=== PATIENT | male | born 1985 | race African-American/Black ===

== ENCOUNTER 2019-02-03 10:21 | Emergency (ER) | payer SELFPAY ==
[~2019-02-03] VITALS: Ht 188 cm; Wt 115.0 kg
[~2019-02-03 10:21] MED LIST: (None)3.5 GM OP; AMOXICILLIN500 MG OR; AMOXIL500 MG OR; LISINOP/HCTZ1 TAB PO; NO HOME MEDS; ULTRAM50 M1 PO; ULTRAM50 MG OR
[2019-02-03] MEDS ORDERED: LISINOP/HCTZ1 TAB PO (10:36)
[2019-02-03 10:48] VITALS: BP 164/91
[2019-02-03] MEDS ORDERED: LISINOP/HCTZ1 TA1 PO ×2 (10:52)
== END 2019-02-03 10:53 | disposition home or self-care (01) | DRG 951 ==
LOC: ED 10:21
DX: Z76.0 Encounter for issue of repeat prescription (principal); R51 Headache; I10 Essential (primary) hypertension; F17.200 Nicotine dependence, unspecified, uncomplicated

== ENCOUNTER 2019-05-15 22:52 | Observation (INO) | payer OTHER ==
[~2019-05-15] VITALS: Ht 188 cm; Wt 131.3 kg
[~2019-05-15 22:52] MED LIST changes: +LISINOP/HCTZ1 TA1 PO
[2019-05-15 23:53] LABS: HEMATOCRIT 42.8 % (39.0-50.0); HEMOGLOBIN 13.8 g/dl (14.0-18.0); IMMATURE GRANULOCYTES 0.4 % (0.0-5.0); MEAN CELL VOLUME 77.5 fL CALC (80.0-100.0); MEAN CORPUSCULAR HGB CONC 32.2 g/L CALC (32.0-36.0); NEUT# 3.97 thou/uL (1.82-7.42); RED BLOOD COUNT 5.52 mill/uL (4.70-6.10)
[2019-05-15 23:54] LABS: URINE BILIRUBIN - DIPSTICK NEGATIVE (NEGATIVE); URINE BLOOD DIPSTICK NEGATIVE (NEGATIVE); URINE COLOR YELLOW; URINE GLUCOSE - DIPSTICK NEGATIVE (NEGATIVE); URINE KETONE TRACE mg/dL (NEGATIVE); URINE LEUK ESTERASE NEGATIVE (NEGATIVE); URINE NITRITE - DIPSTICK NEGATIVE (Negative); URINE PROTEIN - DIPSTICK TRACE mg/dL (NEG-TRACE); URINE SPECIFIC GRAVITY 1.015
[2019-05-15 23:59] LABS: ALBUMIN 4.8 g/dL (3.2-5.0); ALKALINE PHOSPHATASE 90 u/l (38-126); AMYLASE 69 u/l (30-110); ANION GAP 17 (6-22 (CALC)); BUN 6 mg/dL (9-20); BUN/CREATININE RATIO 6 (12-20 (CALC)); CARBON DIOXIDE 26 mmol/l (22-30); CHLORIDE 100 mmol/l (95-108); GFR > 60 ML/MIN (>=60 (CALC)); GFR FOR AFR.AMER. > 60 ML/MIN (>=60 (CALC)); LIPASE 185 u/l (23-300); POTASSIUM 4.1 mmol/l (3.5-5.1); SGOT/AST 143 u/l (17-59); SODIUM 139 mmol/l (137-146); TOTAL PROTEIN 7.9 g/dL (6.3-8.2)
[2019-05-16 00:11] LABS: MYOGLOBIN 24 ng/mL (0 - 121)
[2019-05-16 03:55] VITALS: BP 135/67
[2019-05-16 05:26] LABS: HEMATOCRIT 40.8 % (39.0-50.0); HEMOGLOBIN 13.3 g/dl (14.0-18.0); IMMATURE GRANULOCYTES 0.3 % (0.0-5.0); MEAN CELL VOLUME 78.3 fL CALC (80.0-100.0); MEAN CORPUSCULAR HGB 25.5 pG CALC (26.0-32.0); MEAN CORPUSCULAR HGB CONC 32.6 g/L CALC (32.0-36.0); NEUT# 3.3 thou/uL (1.82-7.42); RED BLOOD COUNT 5.21 mill/uL (4.70-6.10); RED CELL DISTRI WIDTH 14.9 % (11.5-15.5)
[2019-05-16 05:55] LABS: ALBUMIN 4.2 g/dL (3.2-5.0); ALKALINE PHOSPHATASE 92 u/l (38-126); ANION GAP 16 (6-22 (CALC)); BILIRUBIN, TOTAL 1.1 mg/dL (0.0-1.4); BUN 6 mg/dL (9-20); BUN/CREATININE RATIO 6 (12-20 (CALC)); CARBON DIOXIDE 25 mmol/l (22-30); CHLORIDE 102 mmol/l (95-108); GFR > 60 ML/MIN (>=60 (CALC)); GFR FOR AFR.AMER. > 60 ML/MIN (>=60 (CALC)); POTASSIUM 4.3 mmol/l (3.5-5.1); SGOT/AST 105 u/l (17-59); SODIUM 138 mmol/l (137-146); TOTAL PROTEIN 6.9 g/dL (6.3-8.2)
[2019-05-16 07:55] VITALS: BP 138/80
[2019-05-16] MEDS ORDERED: PROTONIX40 M2 PO (15:18)
[2019-05-16 15:37] VITALS: BP 152/85
== END 2019-05-16 15:52 | disposition home or self-care (01) | DRG 392 ==
LOC: ED 22:52 → ED-I 05-16 02:06 → ED 05-16 03:31 → MS2 05-16 03:32
PROVIDERS: Emergency Medicine; ADMIT Internal Medicine Nephrology; ATTEND Internal Medicine Nephrology
DX: K29.70 Gastritis, unspecified, without bleeding (principal); K29.80 Duodenitis without bleeding; I10 Essential (primary) hypertension; F17.210 Nicotine dependence, cigarettes, uncomplicated

== ENCOUNTER 2019-11-10 14:21 | Observation (INO) | payer OTHER ==
[~2019-11-10] VITALS: Ht 182.9 cm; Wt 124.0 kg
[~2019-11-10 14:21] MED LIST changes: +PROTONIX40 M2 PO
[2019-11-10 17:29] LABS: HEMATOCRIT 44.2 % (39.0-50.0); HEMOGLOBIN 14.4 g/dl (14.0-18.0); IMMATURE GRANULOCYTES 0.3 % (0.0-5.0); MEAN CELL VOLUME 77.1 fL CALC (80.0-100.0); MEAN CORPUSCULAR HGB 25.1 pG CALC (26.0-32.0); MEAN CORPUSCULAR HGB CONC 32.6 g/L CALC (32.0-36.0); NEUT# 11.94 thou/uL (1.82-7.42); RED BLOOD COUNT 5.73 mill/uL (4.70-6.10); RED CELL DISTRI WIDTH 14.9 % (11.5-15.5)
[2019-11-10 17:48] LABS: ALKALINE PHOSPHATASE 99 u/l (38-126); ANION GAP 19 (6-22 (CALC)); BILIRUBIN, TOTAL 1.7 mg/dL (0.0-1.4); BUN 8 mg/dL (9-20); BUN/CREATININE RATIO 9 (12-20 (CALC)); CARBON DIOXIDE 22 mmol/l (22-30); CHLORIDE 98 mmol/l (95-108); GFR > 60 ML/MIN (>=60 (CALC)); GFR FOR AFR.AMER. > 60 ML/MIN (>=60 (CALC)); POTASSIUM 4.1 mmol/l (3.5-5.1); SGOT/AST 93 u/l (17-59); SODIUM 135 mmol/l (137-146); TOTAL PROTEIN 9.1 g/dL (6.3-8.2)
[2019-11-10 17:55] LABS: LIPASE 7017 u/l (23-300)
[2019-11-10 18:35] LABS: BARBITURATES NEGATIVE (NEGATIVE); COCAINE NEGATIVE (NEGATIVE); METHADONE NEGATIVE (NEGATIVE); OXCYCODONE NEGATIVE (NEGATIVE); TETRAHYDROCANNABIONOL NEGATIVE (NEGATIVE); TRICYLIC ANTIDEPRESSANTS NEGATIVE (NEGATIVE)
[2019-11-10 18:37] LABS: URINE BLOOD DIPSTICK NEGATIVE (NEGATIVE); URINE COLOR YELLOW; URINE GLUCOSE - DIPSTICK NEGATIVE (NEGATIVE); URINE KETONE 40 mg/dL (NEGATIVE); URINE LEUK ESTERASE NEGATIVE (NEGATIVE); URINE NITRITE - DIPSTICK NEGATIVE (Negative); URINE PH 5.5 (4.5-8.0); URINE PROTEIN - DIPSTICK TRACE mg/dL (NEG-TRACE); URINE SPECIFIC GRAVITY >=1.030; URINE UROBILINOGEN - DIPSTICK 0.2 E.U./dL (0.2)
[2019-11-10 18:40] LABS: URINE BILIRUBIN - DIPSTICK NEGATIVE (NEGATIVE)
[2019-11-10 20:36] VITALS: BP 161/88
[2019-11-11] VITALS (8 sets, daily range): BP systolic 143–188; BP diastolic 71–90
[2019-11-11 10:47] LABS: HEMATOCRIT 41.3 % (39.0-50.0); HEMOGLOBIN 13.5 g/dl (14.0-18.0); IMMATURE GRANULOCYTES 0.6 % (0.0-5.0); MEAN CELL VOLUME 77.2 fL CALC (80.0-100.0); MEAN CORPUSCULAR HGB 25.2 pG CALC (26.0-32.0); MEAN CORPUSCULAR HGB CONC 32.7 g/L CALC (32.0-36.0); NEUT# 13.64 thou/uL (1.82-7.42); RED BLOOD COUNT 5.35 mill/uL (4.70-6.10); RED CELL DISTRI WIDTH 14.9 % (11.5-15.5)
[2019-11-11 11:08] LABS: ALKALINE PHOSPHATASE 69 u/l (38-126); ANION GAP 12 (6-22 (CALC)); BILIRUBIN, TOTAL 1.5 mg/dL (0.0-1.4); BUN 4 mg/dL (9-20); BUN/CREATININE RATIO 6 (12-20 (CALC)); CARBON DIOXIDE 25 mmol/l (22-30); CHLORIDE 101 mmol/l (95-108); CREATININE 0.7 mg/dL (0.7-1.3); GFR > 60 ML/MIN (>=60 (CALC)); GFR FOR AFR.AMER. > 60 ML/MIN (>=60 (CALC)); MAGNESIUM 1.8 mg/dL (1.6-2.3); POTASSIUM 3.8 mmol/l (3.5-5.1); SGOT/AST 33 u/l (17-59); SODIUM 134 mmol/l (137-146)
[2019-11-11 11:09] LABS: ALBUMIN 3.7 g/dL (3.2-5.0); TOTAL PROTEIN 6.8 g/dL (6.3-8.2)
[2019-11-12 00:59] VITALS: BP 154/83
[2019-11-12 03:45] VITALS: BP 164/72
[2019-11-12 05:02] VITALS: BP 154/86
[2019-11-12 05:16] LABS: HEMATOCRIT 38.7 % (39.0-50.0); HEMOGLOBIN 12.4 g/dl (14.0-18.0); IMMATURE GRANULOCYTES 0.4 % (0.0-5.0); MEAN CELL VOLUME 77.9 fL CALC (80.0-100.0); MEAN CORPUSCULAR HGB 24.9 pG CALC (26.0-32.0); NEUT# 10.87 thou/uL (1.82-7.42); RED BLOOD COUNT 4.97 mill/uL (4.70-6.10); RED CELL DISTRI WIDTH 15.1 % (11.5-15.5)
[2019-11-12 05:54] LABS: ALBUMIN 3.3 g/dL (3.2-5.0); ALKALINE PHOSPHATASE 61 u/l (38-126); ANION GAP 12 (6-22 (CALC)); BILIRUBIN, TOTAL 2.1 mg/dL (0.0-1.4); BUN 5 mg/dL (9-20); BUN/CREATININE RATIO 7 (12-20 (CALC)); CARBON DIOXIDE 24 mmol/l (22-30); CHLORIDE 102 mmol/l (95-108); CREATININE 0.7 mg/dL (0.7-1.3); GFR > 60 ML/MIN (>=60 (CALC)); GFR FOR AFR.AMER. > 60 ML/MIN (>=60 (CALC)); LIPASE 627 u/l (23-300); MAGNESIUM 1.8 mg/dL (1.6-2.3); POTASSIUM 3.7 mmol/l (3.5-5.1); SGOT/AST 26 u/l (17-59); SODIUM 134 mmol/l (137-146); TOTAL PROTEIN 6.3 g/dL (6.3-8.2)
[2019-11-12 08:30] VITALS: BP 160/84
[2019-11-12 15:30] VITALS: BP 126/76
[2019-11-12 19:00] VITALS: BP 152/69
[2019-11-13 03:40] VITALS: BP 156/75
[2019-11-13 05:27] LABS: HEMATOCRIT 34.7 % (39.0-50.0); HEMOGLOBIN 11.4 g/dl (14.0-18.0); IMMATURE GRANULOCYTES 0.3 % (0.0-5.0); MEAN CORPUSCULAR HGB 25.6 pG CALC (26.0-32.0); MEAN CORPUSCULAR HGB CONC 32.9 g/L CALC (32.0-36.0); NEUT# 7.09 thou/uL (1.82-7.42); RED BLOOD COUNT 4.45 mill/uL (4.70-6.10); RED CELL DISTRI WIDTH 14.8 % (11.5-15.5)
[2019-11-13 05:39] LABS: ANION GAP 13 (6-22 (CALC)); BUN 5 mg/dL (9-20); BUN/CREATININE RATIO 7 (12-20 (CALC)); CARBON DIOXIDE 22 mmol/l (22-30); CHLORIDE 102 mmol/l (95-108); CREATININE 0.7 mg/dL (0.7-1.3); GFR > 60 ML/MIN (>=60 (CALC)); GFR FOR AFR.AMER. > 60 ML/MIN (>=60 (CALC)); MAGNESIUM 1.8 mg/dL (1.6-2.3); POTASSIUM 3.5 mmol/l (3.5-5.1); SODIUM 134 mmol/l (137-146)
[2019-11-13] MEDS ORDERED: METRONIDAZOL500 MG PO (11:08)
[2019-11-13] MEDS ORDERED: CIPROFLOXACN500 MG PO (11:08)
[2019-11-13 12:30] VITALS: BP 149/78
[2019-11-13 16:30] VITALS: BP 149/78
== END 2019-11-13 12:40 | disposition home or self-care (01) | DRG 439 ==
LOC: ED 14:21 → ED-I 17:06 → ED 19:22 → MS2 19:23
PROVIDERS: Nurse Practitioner Family; ADMIT Internal Medicine; ATTEND Internal Medicine
DX: K85.90 Acute pancreatitis without necrosis or infection, unspecified (principal); K50.10 Crohn's disease of large intestine without complications; I10 Essential (primary) hypertension; F17.210 Nicotine dependence, cigarettes, uncomplicated; Z72.89 Other problems related to lifestyle
CPT/HCPCS: G0378; J1650; Q9967; S0164

== ENCOUNTER 2019-11-16 11:31 | Inpatient (IN) | payer OTHER ==
[~2019-11-16] VITALS: Ht 182.9 cm; Wt 125.0 kg
[~2019-11-16 11:31] MED LIST changes: +CIPROFLOXACN500 MG PO; +METRONIDAZOL500 MG PO
--- NOTE | 2019-11-16 11:58 | NUR ---
PT RETURNED TO WAITING ROOM- AWAITING ROOM TO BE CLEANED
--- NOTE | 2019-11-16 12:14 | NUR ---
PT TO ROOM WITH STEADY GAIT
--- NOTE | 2019-11-16 13:04 | NUR ---
PT MEDICATED PER JAN; PT STATES HE WAS D/C FROM HOSPITAL FOR PANCREATITIS LAST WEEK; SYMPTOMS PERSIST; MONITORING DEVICES IN PLACE; VSS; WILL CONTINUE TO MONITOR
[2019-11-16 13:23] LABS: URINE BLOOD DIPSTICK TRACE-INTACT (NEGATIVE); URINE COLOR YELLOW; URINE GLUCOSE - DIPSTICK NEGATIVE (NEGATIVE); URINE KETONE 40 mg/dL (NEGATIVE); URINE LEUK ESTERASE NEGATIVE (NEGATIVE); URINE PROTEIN - DIPSTICK 100 mg/dL (NEG-TRACE); URINE SPECIFIC GRAVITY >=1.030; URINE UROBILINOGEN - DIPSTICK 0.2 E.U./dL (0.2)
[2019-11-16 13:24] LABS: HEMATOCRIT 39.5 % (39.0-50.0); HEMOGLOBIN 12.8 g/dl (14.0-18.0); IMMATURE GRANULOCYTES 0.4 % (0.0-5.0); MEAN CELL VOLUME 76.8 fL CALC (80.0-100.0); MEAN CORPUSCULAR HGB 24.9 pG CALC (26.0-32.0); MEAN CORPUSCULAR HGB CONC 32.4 g/L CALC (32.0-36.0); NEUT# 7.59 thou/uL (1.82-7.42); RED BLOOD COUNT 5.14 mill/uL (4.70-6.10); RED CELL DISTRI WIDTH 14.4 % (11.5-15.5)
[2019-11-16 13:28] LABS: URINE BILIRUBIN - DIPSTICK SMALL (NEGATIVE)
[2019-11-16 13:29] LABS: URINE BACTERIA RARE hpf; URINE NITRITE - DIPSTICK POSITIVE (Negative); URINE RBC 0-2 RBC/hpf (0-5)
--- NOTE | 2019-11-16 14:00 | NUR ---
PT RESTING ON STRETCHER; NO S/S OF DISTRESS NOTED; PT STATES PAIN IS STILL THE SAME ON PAIN SCALE BUT ISNT BAD BEFORE; VSS; WILL CONTINUE TO MONITOR
[2019-11-16 14:33] LABS: ANION GAP 18 (6-22 (CALC)); BUN 6 mg/dL (9-20); BUN/CREATININE RATIO 7 (12-20 (CALC)); CARBON DIOXIDE 24 mmol/l (22-30); CHLORIDE 98 mmol/l (95-108); CREATININE 0.8 mg/dL (0.7-1.3); GFR > 60 ML/MIN (>=60 (CALC)); GFR FOR AFR.AMER. > 60 ML/MIN (>=60 (CALC)); POTASSIUM 3.8 mmol/l (3.5-5.1); SODIUM 137 mmol/l (137-146); TOTAL PROTEIN 7.5 g/dL (6.3-8.2)
[2019-11-16 14:34] LABS: ALBUMIN 4.2 g/dL (3.2-5.0); ALKALINE PHOSPHATASE 118 u/l (38-126); SGOT/AST 53 u/l (17-59)
[2019-11-16 14:42] LABS: LIPASE 4716 u/l (23-300)
--- NOTE | 2019-11-16 15:00 | NUR ---
DR BARRIENTOS AT BEDSIDE TO DISCUSS POC AND PLAN TO ADMIT
--- NOTE | 2019-11-16 15:30 | NUR ---
PT MEDICATED PER MAR FOR CONTINUED ABD PAIN; MONITORING DEVICES IN PLACE; WILL CONTINUE TO MONITOR
--- NOTE | 2019-11-16 16:30 | NUR ---
PT RESTING ON STRETCHER; NO S/S OF DISTRESS NOTED; PT DENIES ANY PAIN AT THIS TIME; PO FLUIDS GIVEN; VSS; WILL CONTINUE TO MONITOR
--- NOTE | 2019-11-16 17:30 | NUR ---
DR BENITEZ AT BEDSIDE
--- NOTE | 2019-11-16 17:50 | NUR ---
Admission Note Report Given to: CAN ESPINOZA Transported by: X Wheelchair Stretcher Transported with: X Nurse Transporter X Patent IV O2 Script Writer Location: ICU X MS2
[2019-11-16 18:35] VITALS: BP 131/71
--- NOTE | 2019-11-16 18:45 | NUR ---
RECEIVED INTO ROOM 268 FROM ER VIA STRETCHER. RESP NON-LABORED. LUNGS CLEAR. ABD SOFTLY DISTENDED WITH ACTIVE BOWEL SOUNDS. NO N/V AT THIS TIME. STATES ABD IS TENDER. IV IN LAC SITE BENIGN, NS INFUSING AT 150 ML/HR. DISCUSSED PLAN OF CARE. DENIES NEEDS AT THIS TIME. ORIENTED TO SURROUNDINGS. REVIEWED USE OF CALL LEA AND BED CONTROLS.
--- NOTE | 2019-11-16 19:11 | NUR ---
REPORT RECEIVED FROM CAN ESPINOZA. PT RESTING IN BED, AT BEDSIDE. NO S/S OF DISTRESS AT THIS TIME. SAFETY PRECAUTIONS IN PLACE. WILL CONTINUE TO MONITOR.
--- NOTE | 2019-11-16 19:48 | NUR ---
PT RESTING IN BED, ALERT AND ORIENTED. RESPIRATIONS EVEN AND UNLABORED ON RA, LUNGS SOUND CLEAR. PEDAL PULSES ARE STRONG. PT REPORTS PAIN BEING A 5/10 IN HIS ABD. #20 RAC, PATENT AND APEARS HEALTHY. PT EDUCATED ON PLAN OF CARE. SAFETY PRECAUTIONS IN PLACE. WILL CONTINUE TO MONITOR.
--- NOTE | 2019-11-17 00:15 | NUR ---
PT RESTING IN BED. RESPIRATIONS EVEN AND UNLABORED ON RA. NO S/S OF DISTRESS AT THIS TIME. SAFETY PRECAUTIONSI N PLACE. WILL CONTINUE TO MONITOR.
[2019-11-17 04:12] VITALS: BP 113/53
--- NOTE | 2019-11-17 04:55 | NUR ---
pt resting in bed. respirations even and unlabored on ra. no s/s of distress at this time. safety precautions in place. will continue to monitor.
[2019-11-17 08:10] VITALS: BP 110/64
--- NOTE | 2019-11-17 08:10 | NUR ---
SLEEPING ON ROUNDS, AWAKENS TO NAME. AT BEDSIDE. RESP NON-LABORED. LUNGS CLEAR. ABD SOFT WITH ACTIVE BOWEL SOUNDS. NO EDEMA. PERIPHERAL PULSES ARE PALPABLE. IV SITE IN RAC WITH NS INFUSING AT 150 ML/HR. IV SITE IS BENIGN. DISCUSSED PLAN OF CARE. DENIES NEEDS AT THIS TIME. CALL LEA IN REACH.
[2019-11-17 09:47] LABS: AMYLASE 93 u/l (30-110); LIPASE 830 u/l (23-300)
--- NOTE | 2019-11-17 11:59 | NUR ---
PATIENT DOWN FOR ABS ULTRASOUND EARLIER THIS MORNING. RESTING IN BED. ASKING TO EAT. INFOMRED THAT DR IS ROUNDING NOW SHOULD BE IN SOON AND WILL DISCUSS ABD US RESULTS WELL REVIEW LABS. CONTINUE NPO FOR NOW.
--- NOTE | 2019-11-17 13:00 | NUR ---
PATIENT CHANGED TO FULL LIQUID DIET MAGDY ADVANCE TOLERATED.
--- NOTE | 2019-11-17 14:00 | NUR ---
PATIENT TOLERATING FULL LIQUIDS WELL. NO C/O N/V OR ABD PAIN.
[2019-11-17 15:05] VITALS: BP 114/69
--- NOTE | 2019-11-17 16:30 | NUR ---
RESTING WITHUOUT COMPLAINTS THROUGHOUT THE SHIFT. IV SITE MAINTAINED IN RAC, IVF'S CONTINUE AT 150 ML/HR. TOLERATING LIQUIDS WELL. WILL ADVANCE TO SOFT DIET FOR DINNER.
[2019-11-17 18:45] VITALS: BP 133/84
--- NOTE | 2019-11-17 19:05 | NUR ---
REPORT RECEIVED FROM CAN ESPINOZA. PT RESTING IN BED, AT BEDSIDE, NO S/S OF DISTRESS AT THIS TIME. SAFETY PRECAUTIONS IN PLACE. WILL CONTINUE TO MONITOR.
--- NOTE | 2019-11-17 20:40 | NUR ---
PT RESTING IN BED, ALERT AND ORIENTED. RESPIRATIONS EVEN AND UNLABORED ON RA. LUNGS SOUND CLEAR. PEDAL PULSES ARE STRONG. PT DENIES ANY NEEDS AT THIS TIME. SAFETY PRECAUTIONS IN PLACE. WILL CONTINUE TO MONITOR.
--- NOTE | 2019-11-18 00:42 | NUR ---
PT RESTING IN BED. RESPIRATIONS EVEN AND UNLABORED ON RA. NO S/S OF DISTRESS AT THIS TIME. SAFETY PRECAUTIONS IN PLACE. WILL CONTINUE TO MONITOR.
[2019-11-18 03:07] VITALS: BP 136/82
--- NOTE | 2019-11-18 05:00 | NUR ---
PT RESTING IN BED. NO S/S OF DISTRESS AT THIS TIME. NEW BAG OF FLUIDS HUNG PER EMAR ORDERS.
[2019-11-18 07:50] VITALS: BP 147/84
[2019-11-18 09:45] LABS: CHOLESTEROL HDL RATIO 7.2 (<4.4 (CALC))
--- NOTE | 2019-11-18 11:30 | NUR ---
Discharge instructions given. Patient verbalizes understanding of same. Discharged in stable condition via Ambulatory to Home with family. All belongings sent with pt.
== END 2019-11-18 11:31 | disposition home or self-care (01) | DRG 439 ==
LOC: ED 11:31 → ED-I 15:13 → ED 15:30 → MS2 15:31
PROVIDERS: Family Medicine; ADMIT Internal Medicine; ATTEND Internal Medicine
DX: K85.90 Acute pancreatitis without necrosis or infection, unspecified (principal); K50.10 Crohn's disease of large intestine without complications; I10 Essential (primary) hypertension; F17.200 Nicotine dependence, unspecified, uncomplicated

== ENCOUNTER 2020-10-20 12:03 | Emergency (ER) | payer OTHER ==
[~2020-10-20] VITALS: Ht 188 cm; Wt 127.3 kg
[2020-10-20] MEDS ORDERED: LISINOPRIL20 M1 PO (12:24)
[2020-10-20 12:43] LABS: HEMATOCRIT 44.4 % (39.0-50.0); HEMOGLOBIN 14.3 g/dl (14.0-18.0); IMMATURE GRANULOCYTES 0.2 % (0.0-5.0); MEAN CELL VOLUME 77.2 fL CALC (80.0-100.0); MEAN CORPUSCULAR HGB 24.9 pG CALC (26.0-32.0); MEAN CORPUSCULAR HGB CONC 32.2 g/dL CAL (32.0-36.0); NEUT# 5.48 thou/uL (1.82-7.42); RED BLOOD COUNT 5.75 mill/uL (4.70-6.10); RED CELL DISTRI WIDTH 15.2 % (11.5-15.5)
[2020-10-20 12:59] LABS: ALBUMIN 4.8 g/dL (3.2-5.0); ALKALINE PHOSPHATASE 92 u/l (38-126); AMYLASE 84 u/l (30-110); ANION GAP 18 (6-22 (CALC)); BILIRUBIN, TOTAL 0.9 mg/dL (0.0-1.4); BUN 6 mg/dL (9-20); BUN/CREATININE RATIO 7 (12-20 (CALC)); CARBON DIOXIDE 20 mmol/l (22-30); CHLORIDE 105 mmol/l (95-108); CREATININE 0.9 mg/dL (0.7-1.3); GFR > 60 ML/MIN (>=60 (CALC)); GFR FOR AFR.AMER. > 60 ML/MIN (>=60 (CALC)); LIPASE 104 u/l (23-300); POTASSIUM 4.1 mmol/l (3.5-5.1); SODIUM 140 mmol/l (137-146); TOTAL PROTEIN 8.4 g/dL (6.3-8.2)
[2020-10-20 13:00] LABS: SGOT/AST 130 u/l (17-59)
[2020-10-20 14:14] LABS: URINE BILIRUBIN - DIPSTICK NEGATIVE (NEGATIVE); URINE BLOOD DIPSTICK TRACE-LYSED (NEGATIVE); URINE COLOR YELLOW; URINE GLUCOSE - DIPSTICK NEGATIVE (NEGATIVE); URINE KETONE NEGATIVE (NEGATIVE); URINE LEUK ESTERASE NEGATIVE (NEGATIVE); URINE NITRITE - DIPSTICK NEGATIVE (Negative); URINE PROTEIN - DIPSTICK 100 mg/dL (NEG-TRACE); URINE SPECIFIC GRAVITY >=1.030; URINE UROBILINOGEN - DIPSTICK 0.2 E.U./dL (0.2)
[2020-10-20 14:23] LABS: URINE RBC 0-2 RBC/hpf (0-5); URINE WBC 0-2 WBC/hpf (0-5)
[2020-10-20] MEDS ORDERED: CARAFATE1 GM PO (15:19)
[2020-10-20] MEDS ORDERED: ZOFRAN4 MG/TAB PO (15:22)
[2020-10-20 15:34] VITALS: BP 158/86
== END 2020-10-20 15:46 | disposition home or self-care (01) | DRG 392 ==
LOC: ED 12:03
PROVIDERS: Emergency Medicine
DX: K29.20 Alcoholic gastritis without bleeding (principal); R16.0 Hepatomegaly, not elsewhere classified; R79.89 Other specified abnormal findings of blood chemistry; I10 Essential (primary) hypertension; F17.210 Nicotine dependence, cigarettes, uncomplicated; Z20.828 Contact with and (suspected) exposure to other viral communicable diseases
CPT/HCPCS: Q9967

== ENCOUNTER 2021-07-23 13:18 | Observation (INO) | payer OTHER ==
[~2021-07-23] VITALS: Ht 182.9 cm; Wt 116.0 kg
[~2021-07-23 13:18] MED LIST changes: +CARAFATE1 GM PO; +LISINOPRIL20 M1 PO; +ZOFRAN4 MG/TAB PO
--- NOTE | 2021-07-23 13:50 | NUR ---
PT AMBULATED TO ROOM WITH A STEADY GAIT, WHEELCHAIR OFFERED AND DECLINED
[2021-07-23 16:10] LABS: HEMATOCRIT 44.5 % (39.0-50.0); HEMOGLOBIN 14.7 g/dl (14.0-18.0); IMMATURE GRANULOCYTES 0.3 % (0.0-5.0); MEAN CELL VOLUME 78.8 fL CALC (80.0-100.0); NEUT# 5.58 thou/uL (1.82-7.42); RED BLOOD COUNT 5.65 mill/uL (4.70-6.10); RED CELL DISTRI WIDTH 15.3 % (11.5-15.5)
[2021-07-23 16:22] LABS: ALBUMIN 4.9 g/dL (3.2-5.0); ALKALINE PHOSPHATASE 102 u/l (38-126); BUN 7 mg/dL (9-20); BUN/CREATININE RATIO 7 (12-20 (CALC)); CHLORIDE 93 mmol/l (95-108); CREATININE 0.9 mg/dL (0.7-1.3); GFR > 60 ML/MIN (>=60 (CALC)); GFR FOR AFR.AMER. > 60 ML/MIN (>=60 (CALC)); LIPASE 1243 u/l (23-300); SGOT/AST 83 u/l (17-59); TOTAL PROTEIN 8.5 g/dL (6.3-8.2)
[2021-07-23 16:23] LABS: ANION GAP 17 (6-22 (CALC)); BILIRUBIN, TOTAL 1.6 mg/dL (0.0-1.4); CARBON DIOXIDE 25 mmol/l (22-30); SODIUM 131 mmol/l (137-146)
[2021-07-23 20:50] VITALS: BP 179/96
--- NOTE | 2021-07-23 21:30 | NUR ---
PATIENT ADMITTED FROM ER VIA WHEELCHAIR WITH ER STAFF IN ATTENDANCE. PATIENT AMBULATORY TO BR TO VOID AND THEN TO BED. STEADY GAIT. ALERT AND ORIENTEDX3. PATIENT ADMITTED FOR PANCREATITIS. NPO AT THIS TIME. PATIENT WITH C/O SEVERE PAIN TO LEFT ABD-9/10 ON PAIN SCA;E/ PATIENT STATES LITTLE RELIEF FROM PAIN MEDS GIVEN IN ER. ABD IS SOFT WITH BS+. LAST BM WAS TODAY AND PAIIENT STATES THAT IT WAS NORMAL. NO DIARRHEA. DENIES ANY DIFFICULTY WITH URINATION. LUNFS ARE CLEAR. HR REGULAR. NO PERIPHERAL EDEMA. PULSES ARE PALPABLE. IV SITE TO LAC INTACT AND HEALTHY AT THIS TIME WITH GOOD BLOOD RETURN. IVF NS HUNG AND INFUSING AT 200CC/HR. ORIENTED PATIENT TO ROOM AND SURROUNDINGS. INSTRUCTED ON USE OF NURSE CALL LIGHT SYSTEM, TV REMOTE AND PHONE. SAFETY PRECAUTIONS REINFORCE. CALL LIGHT IN REACH. WILL CONT TO MONITOR.
--- NOTE | 2021-07-23 22:37 | NUR ---
PATIENT RESTING IN BED-MEDICATED WITH ZOFRAN 4MG IVP FOR NAUSEA AND WITH MORPHINE 2MG IVP FOR LEFT SIDED ABD PAIN-9/10 ON PAIN SCALE. IVF NS PATENT AND INFUSING VIA LAC SITE AT 200CC/HR. CALL LIGHT IN REACH. WILL CONT TO MONITOR.
--- NOTE | 2021-07-23 23:30 | NUR ---
PATIENT RESTING IN BED-STATES LITTLE OR NO RELIEF FROM PAIN MEDS. REMAINS NPO. IVF PATENT AND INFUSING VIA LAC AT 200CC/HR. CALL LIGHT IN REACH. WILL CONT TO MONITOR.
[2021-07-24] VITALS: BP 167/100
--- NOTE | 2021-07-24 02:44 | NUR ---
PATIENT RESTING IN BED-VOIDED VIVIANA URINE IN URINAL. MEDICATED FOR LEFT SIDED ABD PAIN AGAIN WITH MORPHINE 2MG IVP FOR 9/10 PAIN SCALE. IVF PATENT AND INFUSING VIA LAC SITE AT 200CC/HR. REMAINS NPO ORDERED. CALL LIGHT IN REACH. WILL CONT TO MONITOR.
[2021-07-24 04:00] VITALS: BP 166/106
--- NOTE | 2021-07-24 04:14 | NUR ---
PATIENT RESTING IN BED-STILL HAVING LEFT SIDED ABD PAIN-MINIMAL RELIEF FROM MORPHINE. IVF NS PATENT AND INFUSING VIA LAC SITE AT 200CC/HR. SITE REMAINS HEALTHY. REMAINS NPO. CALL LIGHT IN REACH. WILL CONT TO MONITOR.
[2021-07-24 05:59] LABS: CHOLESTEROL HDL RATIO 3.6 (<4.4 (CALC)); HEMATOCRIT 41.6 % (39.0-50.0); HEMOGLOBIN 13.7 g/dl (14.0-18.0); IMMATURE GRANULOCYTES 0.2 % (0.0-5.0); MEAN CELL VOLUME 79.7 fL CALC (80.0-100.0); MEAN CORPUSCULAR HGB 26.2 pG CALC (26.0-32.0); MEAN CORPUSCULAR HGB CONC 32.9 g/dL CAL (32.0-36.0); NEUT# 8.16 thou/uL (1.82-7.42); RED BLOOD COUNT 5.22 mill/uL (4.70-6.10)
[2021-07-24 06:10] LABS: ALBUMIN 4.1 g/dL (3.2-5.0); ALKALINE PHOSPHATASE 81 u/l (38-126); ANION GAP 13 (6-22 (CALC)); BILIRUBIN, TOTAL 1.6 mg/dL (0.0-1.4); BUN 6 mg/dL (9-20); BUN/CREATININE RATIO 7 (12-20 (CALC)); CARBON DIOXIDE 26 mmol/l (22-30); CHLORIDE 97 mmol/l (95-108); CREATININE 0.9 mg/dL (0.7-1.3); GFR > 60 ML/MIN (>=60 (CALC)); GFR FOR AFR.AMER. > 60 ML/MIN (>=60 (CALC)); POTASSIUM 4.2 mmol/l (3.5-5.1); SGOT/AST 46 u/l (17-59); SODIUM 132 mmol/l (137-146); TOTAL PROTEIN 6.9 g/dL (6.3-8.2)
--- NOTE | 2021-07-24 07:18 | NUR ---
BEDSIDE REPORT RECEIVED, PT LYING IN BED ASLEEP. WILLL CONTINUE TO MONITOR.
[2021-07-24 08:30] VITALS: BP 156/84
--- NOTE | 2021-07-24 10:00 | NUR ---
ESCORTED PT VIA WC TO US
--- NOTE | 2021-07-24 10:30 | NUR ---
PT RETURNED FROM US, PT REQUESTED PRN PAIN MEDICATION. STATED THIS MEDICAITON IS GIVING HIM LITTLE RELEIF TO PAIN. STATED HE WOULD LIKE TO REQUEST SOMETHING ELSE FROM PHYSICIAN WHEN HE SEES PATIENT.
[2021-07-24] MEDS ORDERED: HYDROMORPHON8 MG PO (10:36)
[2021-07-24] MEDS ORDERED: SILDENAFIL100 MG PO (10:41)
[2021-07-24] MEDS ORDERED: [UNRECOGNIZED DRUG - OTHER] PO (10:42)
[2021-07-24 12:36] VITALS: BP 163/92
--- NOTE | 2021-07-24 12:37 | NUR ---
BP 163/92, OK TO GIVE PRN APRESOLINE PER Tete MADDOX. PT PAIN MEDICATION SWITCHED PER DAVID BOSS TO GIVE PRN DILAUDID WELL. WILL CONTINUE TO MONITOR, WILL RECHECK BP.
[2021-07-24 13:30] VITALS: BP 142/87
--- NOTE | 2021-07-24 13:30 | NUR ---
PT STATED PAIN HAS DECREASED AFTER PRN PAIN MED GIVEN, 6/10 WITH MOVEMENT. STAED LONG HE LIES IN PLACE THE [place] ISNT SO BAD ANYMORE. PT CONSUMED WATER, JUICE AND JELLO. PT IS ORDERED A SOFT DIET FOR THIS EVENEING. Tete MADDOX STATED LONG PT TOLERATES SOFT DIET WELL WO PAIN, PT CAN BE DC'D THIS EVENING.
--- NOTE | 2021-07-24 16:43 | NUR ---
PT LYING IN BED ASLEEP
[2021-07-24 17:18] VITALS: BP 156/93
--- NOTE | 2021-07-24 18:43 | NUR ---
PT ATE ABOUT HALF THE PORTION OF [employer]. PT HAS NO COMPLAINTS OF FURTHER PAIN AND AGREES TO D/C THIS EVENING. WILL RISA MADDOX FOR ORDER. PT INSTRUCTED TO TAKE HIS REGULAR BP UPON RETURNING HOME. VERBALIZED UNDERSTANDING.
[2021-07-24] MEDS ORDERED: ZOFRAN4 MG/TAB PO (19:30)
--- NOTE | 2021-07-24 19:30 | NUR ---
D VARSHA NOTIFIED, DC ORDERS TO FOLLOW. PATIENT IV REMOVED AND INTACT.
[2021-07-24] MEDS ORDERED: PROTONIX40 MG PO (19:35)
--- NOTE | 2021-07-24 20:18 | NUR ---
PATIENT DC. DISCHARGE PAPERWORK PROVIDED. STAFF ACOMPANIED PATIENT DOWNSTAIRS.
== END 2021-07-24 20:18 | disposition home or self-care (01) | DRG 439 ==
LOC: ED 13:18 → MS2 18:54
PROVIDERS: Emergency Medicine; ADMIT Internal Medicine; ATTEND Internal Medicine
DX: K85.20 Alcohol induced acute pancreatitis without necrosis or infection (principal); E87.1 Hypo-osmolality and hyponatremia; K86.0 Alcohol-induced chronic pancreatitis; F10.10 Alcohol abuse, uncomplicated; I10 Essential (primary) hypertension; F17.210 Nicotine dependence, cigarettes, uncomplicated; G89.4 Chronic pain syndrome; R79.89 Other specified abnormal findings of blood chemistry; Z20.822 Contact with and (suspected) exposure to COVID-19
CPT/HCPCS: G0378; J1650; Q9967; S0164

== ENCOUNTER 2021-08-01 02:19 | Observation (INO) | payer OTHER ==
[~2021-08-01] VITALS: Ht 188 cm; Wt 121.1 kg
[~2021-08-01 02:19] MED LIST changes: +HYDROMORPHON8 MG PO; +PROTONIX40 MG PO; +SILDENAFIL100 MG PO; +[UNRECOGNIZED DRUG - OTHER] PO
--- NOTE | 2021-08-01 02:21 | NUR ---
AMBULATED TO ROOM WITH STEADY GAIT.
[2021-08-01 02:57] LABS: HEMATOCRIT 39.7 % (39.0-50.0); HEMOGLOBIN 12.9 g/dl (14.0-18.0); IMMATURE GRANULOCYTES 0.3 % (0.0-5.0); MEAN CELL VOLUME 78.9 fL CALC (80.0-100.0); MEAN CORPUSCULAR HGB 25.6 pG CALC (26.0-32.0); MEAN CORPUSCULAR HGB CONC 32.5 g/dL CAL (32.0-36.0); NEUT# 6.9 thou/uL (1.82-7.42); RED BLOOD COUNT 5.03 mill/uL (4.70-6.10); RED CELL DISTRI WIDTH 14.4 % (11.5-15.5)
[2021-08-01 03:05] LABS: ALBUMIN 4.4 g/dL (3.2-5.0); ALKALINE PHOSPHATASE 106 u/l (38-126); AMYLASE 942 u/l (30-110); ANION GAP 16 (6-22 (CALC)); BUN 9 mg/dL (9-20); BUN/CREATININE RATIO 11 (12-20 (CALC)); CARBON DIOXIDE 24 mmol/l (22-30); CHLORIDE 99 mmol/l (95-108); CREATININE 0.9 mg/dL (0.7-1.3); GFR > 60 ML/MIN (>=60 (CALC)); GFR FOR AFR.AMER. > 60 ML/MIN (>=60 (CALC)); POTASSIUM 3.6 mmol/l (3.5-5.1); SGOT/AST 50 u/l (17-59); SODIUM 135 mmol/l (137-146); TOTAL PROTEIN 7.6 g/dL (6.3-8.2)
[2021-08-01 03:06] LABS: BILIRUBIN, TOTAL 0.6 mg/dL (0.0-1.4)
[2021-08-01 03:16] LABS: LIPASE 10164 u/l (23-300)
[2021-08-01 03:17] LABS: MYOGLOBIN 18 ng/mL (0 - 121)
--- NOTE | 2021-08-01 03:30 | NUR ---
RESTING QUIETLY. AWAITING TEST RESULTS.
[2021-08-01 04:21] LABS: URINE BILIRUBIN - DIPSTICK NEGATIVE (NEGATIVE); URINE BLOOD DIPSTICK NEGATIVE (NEGATIVE); URINE COLOR YELLOW; URINE GLUCOSE - DIPSTICK NEGATIVE (NEGATIVE); URINE KETONE TRACE mg/dL (NEGATIVE); URINE LEUK ESTERASE NEGATIVE (NEGATIVE); URINE PH 5.5 (4.5-8.0); URINE PROTEIN - DIPSTICK NEGATIVE (NEG-TRACE); URINE SPECIFIC GRAVITY 1.025; URINE UROBILINOGEN - DIPSTICK 0.2 E.U./dL (0.2)
[2021-08-01 04:23] LABS: URINE NITRITE - DIPSTICK NEGATIVE (Negative)
--- NOTE | 2021-08-01 04:23 | NUR ---
NO CHANGE IN EXAM. STABLE.
--- NOTE | 2021-08-01 05:45 | NUR ---
NOSIGNIFICANT RELIEF FROM MORPHINE.
--- NOTE | 2021-08-01 06:08 | NUR ---
Admission Note Report Given to: CAN GRAMAJO Transported by: Wheelchair X Stretcher Transported with: X Nurse Transporter X Patent IV O2 Rig Hand Location: ICU X MS2
--- NOTE | 2021-08-01 06:10 | NUR ---
PT ARRIVED TO MED SURG VIA STRETCHER ACCOMPANIED BY ED NURSE. PT APPEARS IN STABLE CONDITION, BUT C/O PAIN 08/24. SELF AMBULATED TO THE BED.
--- NOTE | 2021-08-01 06:20 | NUR ---
IVF ADMINISTERED. PT C/O PAIN 10/10 ON PAIN SCALE STATING, "THEY GAVE ME MORPHONE AND IT DOESN'T WORK." WILL NOTIFY PHYSICIAN FOR ORDERS.
--- NOTE | 2021-08-01 07:00 | NUR ---
BEDSIDE REPORT RECIEVED, PT AWAKE LYING IN BED. ASSESSMENT COMPLETED. C/O PAIN 08/24. PT STATED MORPHINE DOESNT WORK FOR ME, DIDNT WORK LAST TIME AND ITS NOT WORKING NOW, THEY GAVVE ME DILAUDID IN ER, IT WORKS BETTER FOR MY PAIN. SN REQUESTED CHANGE FROM Tete MADDOX. WILL FOLLOW UP AND CONTINUE TO MONITOR.
[2021-08-01 07:18] VITALS: BP 143/80
--- NOTE | 2021-08-01 13:15 | NUR ---
PT VOMITTED DIRECTLY AFTER ADMIN OF DILAUDID. ZOFRAN GIVEN. PLEASE ADMIN ZOFRAN PRIOR TO DIALAUID HERE AFTER.
--- NOTE | 2021-08-01 13:50 | NUR ---
PT TO MRI FOR TESTING
--- NOTE | 2021-08-01 14:45 | NUR ---
PT BACK TO FLOOR, IVF RESUMED.
[2021-08-01 16:04] VITALS: BP 177/96
[2021-08-01 19:00] VITALS: BP 172/88
--- NOTE | 2021-08-01 20:25 | NUR ---
PHYSICAL ASSESMENT COMPLETE. PT CURRENTLY DENIES PAIN OR DISCOMFORT. SCHEDULED MEDICATIONS AND PRN MEDICATION ADMINISTERED, SEE E-MAR. PT DENIES ANY NEEDS AT THIS TIME. PLAN OF CARE REVIEWED, PT DENIES QUESTIONS, VERBALIZES UNDERSTANDING. ITEMS WITHIN REACH, BED LOCKED IN LOW POSITION W/ BEDRAILS UP X2. CALL LEA WITHIN REACH, AGREES TO CALL PRN.
[2021-08-02 04:00] VITALS: BP 165/87
--- NOTE | 2021-08-02 04:00 | NUR ---
PT LAYING IN BED WITH EYES CLOSED, APPEARS TO BE SLEEPING, APPEARS COMFORTABLE AND IN NO DISTRESS. RESPIRATIONS REGULAR AND UNLABORED. ITEMS REMAIN WITHIN REACH, CALL LEA REMAINS WITHIN REACH. BED REMAINS LOCKED AND IN LOW POSITION WITH BEDRAILS UP X2. WILL CONTINUE TO MONITOR.
[2021-08-02 05:39] LABS: HEMATOCRIT 39.5 % (39.0-50.0); HEMOGLOBIN 12.8 g/dl (14.0-18.0); IMMATURE GRANULOCYTES 0.2 % (0.0-5.0); MEAN CELL VOLUME 79.5 fL CALC (80.0-100.0); MEAN CORPUSCULAR HGB 25.8 pG CALC (26.0-32.0); MEAN CORPUSCULAR HGB CONC 32.4 g/dL CAL (32.0-36.0); NEUT# 9.92 thou/uL (1.82-7.42); RED BLOOD COUNT 4.97 mill/uL (4.70-6.10); RED CELL DISTRI WIDTH 14.5 % (11.5-15.5)
[2021-08-02 05:54] LABS: ALKALINE PHOSPHATASE 70 u/l (38-126); ANION GAP 10 (6-22 (CALC)); BUN 4 mg/dL (9-20); BUN/CREATININE RATIO 5 (12-20 (CALC)); CARBON DIOXIDE 28 mmol/l (22-30); CHLORIDE 99 mmol/l (95-108); CREATININE 0.8 mg/dL (0.7-1.3); GFR > 60 ML/MIN (>=60 (CALC)); GFR FOR AFR.AMER. > 60 ML/MIN (>=60 (CALC)); SGOT/AST 24 u/l (17-59); SODIUM 133 mmol/l (137-146)
[2021-08-02 06:25] LABS: ALBUMIN 3.3 g/dL (3.2-5.0); BILIRUBIN, TOTAL 1.2 mg/dL (0.0-1.4); TOTAL PROTEIN 5.9 g/dL (6.3-8.2)
[2021-08-02 07:34] VITALS: BP 146/77
--- NOTE | 2021-08-02 08:00 | NUR ---
PT IS AWAKE, ALERT, ORIENTED X 3. LUNGS CLEAR, RA. ABDOMEN SOFT, SLIGHTLY TENDER, BM YESTERDAY. PT SEEN BY DR BOO, WILL DISCHARGE THIS MORNING.
[2021-08-02] MEDS ORDERED: PROTONIX40 MG PO (09:50)
[2021-08-02] MEDS ORDERED: ZOFRAN4 MG/TAB PO (09:50)
--- NOTE | 2021-08-02 10:45 | NUR ---
PT HAS BEEN DISCHARGED TO HOME. IV REMOVED. PT VERBALIZES UNDERSTANDING OF DC INSTRUCTIONS, AMBULATES TO LOBBY WITH STAFF. PT LEAVES IN STABLE CONDITION.
== END 2021-08-02 10:45 | disposition home or self-care (01) | DRG 440 ==
LOC: ED 02:19 → ED-I 04:03 → ED 04:14 → MS2 04:15
PROVIDERS: Emergency Medicine; Nurse Practitioner; ADMIT Hospitalist; ATTEND Hospitalist
DX: K85.90 Acute pancreatitis without necrosis or infection, unspecified (principal); R73.9 Hyperglycemia, unspecified; I10 Essential (primary) hypertension; G89.4 Chronic pain syndrome; F17.210 Nicotine dependence, cigarettes, uncomplicated; Z20.822 Contact with and (suspected) exposure to COVID-19
CPT/HCPCS: S0164

== ENCOUNTER 2021-08-26 15:33 | Emergency (ER) | payer OTHER ==
[~2021-08-26] VITALS: Ht 188 cm; Wt 120.0 kg
[2021-08-26 16:38] LABS: HEMATOCRIT 39.7 % (39.0-50.0); HEMOGLOBIN 12.7 g/dl (14.0-18.0); IMMATURE GRANULOCYTES 0.1 % (0.0-5.0); MEAN CELL VOLUME 79.7 fL CALC (80.0-100.0); MEAN CORPUSCULAR HGB 25.5 pG CALC (26.0-32.0); NEUT# 4.72 thou/uL (1.82-7.42); RED BLOOD COUNT 4.98 mill/uL (4.70-6.10); RED CELL DISTRI WIDTH 15.2 % (11.5-15.5)
[2021-08-26 16:52] LABS: ALKALINE PHOSPHATASE 93 u/l (38-126); AMYLASE 1088 u/l (30-110); ANION GAP 16 (6-22 (CALC)); BILIRUBIN, TOTAL 1.1 mg/dL (0.0-1.4); BUN 9 mg/dL (9-20); BUN/CREATININE RATIO 10 (12-20 (CALC)); CARBON DIOXIDE 23 mmol/l (22-30); CHLORIDE 103 mmol/l (95-108); CREATININE 0.9 mg/dL (0.7-1.3); GFR > 60 ML/MIN (>=60 (CALC)); GFR FOR AFR.AMER. > 60 ML/MIN (>=60 (CALC)); POTASSIUM 3.4 mmol/l (3.5-5.1); SGOT/AST 41 u/l (17-59); SODIUM 139 mmol/l (137-146)
[2021-08-26 17:00] LABS: ALBUMIN 4.6 g/dL (3.2-5.0)
[2021-08-26 17:01] LABS: LIPASE > 20000 u/l (23-300)
[2021-08-26 18:17] VITALS: BP 164/90
== END 2021-08-26 20:11 | disposition left against medical advice (07) | DRG 440 ==
LOC: ED 15:33
PROVIDERS: Emergency Medicine
DX: K85.90 Acute pancreatitis without necrosis or infection, unspecified (principal); I10 Essential (primary) hypertension; F17.200 Nicotine dependence, unspecified, uncomplicated; Z91.19 Patient's noncompliance with other medical treatment and regimen
CPT/HCPCS: Q9967

== ENCOUNTER 2021-09-23 20:07 | Observation (INO) | payer OTHER ==
[~2021-09-23] VITALS: Ht 188 cm; Wt 119.9 kg
[2021-09-23 21:26] LABS: HEMOGLOBIN 13.6 g/dl (14.0-18.0); IMMATURE GRANULOCYTES 0.3 % (0.0-5.0); MEAN CELL VOLUME 79.6 fL CALC (80.0-100.0); MEAN CORPUSCULAR HGB 25.2 pG CALC (26.0-32.0); MEAN CORPUSCULAR HGB CONC 31.6 g/dL CAL (32.0-36.0); NEUT# 2.94 thou/uL (1.82-7.42); RED BLOOD COUNT 5.4 mill/uL (4.70-6.10)
[2021-09-23 21:57] LABS: ALBUMIN 4.7 g/dL (3.2-5.0); ALKALINE PHOSPHATASE 87 u/l (38-126); AMYLASE 567 u/l (30-110); ANION GAP 17 (6-22 (CALC)); BILIRUBIN, TOTAL 0.9 mg/dL (0.0-1.4); BUN 9 mg/dL (9-20); BUN/CREATININE RATIO 8 (12-20 (CALC)); CARBON DIOXIDE 25 mmol/l (22-30); CHLORIDE 101 mmol/l (95-108); CREATININE 1.1 mg/dL (0.7-1.3); ETHYL ALCOHOL 0 mg/dl (0-30); GFR > 60 ML/MIN (>=60 (CALC)); GFR FOR AFR.AMER. > 60 ML/MIN (>=60 (CALC)); POTASSIUM 3.9 mmol/l (3.5-5.1); SGOT/AST 31 u/l (17-59); SODIUM 140 mmol/l (137-146); TOTAL PROTEIN 8.1 g/dL (6.3-8.2)
[2021-09-23 21:59] LABS: ACT PARTIAL THROMBO TIME 18.9 SECONDS (20.0-32.5); PROTHROMBIN TIME 10.4 SECONDS (9.0-12.5)
[2021-09-23 22:06] LABS: LIPASE 9386 u/l (23-300)
[2021-09-24 01:20] VITALS: BP 166/92
[2021-09-24 01:37] LABS: URINE BILIRUBIN - DIPSTICK NEGATIVE (NEGATIVE); URINE BLOOD DIPSTICK NEGATIVE (NEGATIVE); URINE COLOR YELLOW; URINE GLUCOSE - DIPSTICK NEGATIVE (NEGATIVE); URINE KETONE NEGATIVE (NEGATIVE); URINE LEUK ESTERASE NEGATIVE (NEGATIVE); URINE PROTEIN - DIPSTICK NEGATIVE (NEG-TRACE); URINE UROBILINOGEN - DIPSTICK 0.2 E.U./dL (0.2)
[2021-09-24 01:40] LABS: URINE NITRITE - DIPSTICK NEGATIVE (Negative)
[2021-09-24 04:00] VITALS: BP 160/95
[2021-09-24 05:33] LABS: HEMATOCRIT 41.9 % (39.0-50.0); HEMOGLOBIN 13.3 g/dl (14.0-18.0); MEAN CELL VOLUME 80.9 fL CALC (80.0-100.0); MEAN CORPUSCULAR HGB 25.7 pG CALC (26.0-32.0); MEAN CORPUSCULAR HGB CONC 31.7 g/dL CAL (32.0-36.0); RED BLOOD COUNT 5.18 mill/uL (4.70-6.10); RED CELL DISTRI WIDTH 15.1 % (11.5-15.5)
[2021-09-24 05:46] LABS: ANION GAP 13 (6-22 (CALC)); BUN 7 mg/dL (9-20); BUN/CREATININE RATIO 9 (12-20 (CALC)); CARBON DIOXIDE 28 mmol/l (22-30); CHLORIDE 105 mmol/l (95-108); CREATININE 0.8 mg/dL (0.7-1.3); GFR > 60 ML/MIN (>=60 (CALC)); GFR FOR AFR.AMER. > 60 ML/MIN (>=60 (CALC)); MAGNESIUM 1.9 mg/dL (1.6-2.3); POTASSIUM 4.4 mmol/l (3.5-5.1); SODIUM 141 mmol/l (137-146)
[2021-09-24 07:15] VITALS: BP 177/92
== END 2021-09-24 15:30 | disposition home or self-care (01) | DRG 440 ==
LOC: ED 20:07 → ED-I 20:25 → ED 23:33 → MS2 23:34
PROVIDERS: ADMIT Hospitalist; ATTEND Hospitalist
DX: K85.90 Acute pancreatitis without necrosis or infection, unspecified (principal); K86.1 Other chronic pancreatitis; I10 Essential (primary) hypertension; G89.4 Chronic pain syndrome; F17.200 Nicotine dependence, unspecified, uncomplicated; Z20.822 Contact with and (suspected) exposure to COVID-19
CPT/HCPCS: G0378; Q9967; S0164

== ENCOUNTER 2021-11-24 18:54 | Emergency (ER) | payer OTHER ==
[~2021-11-24] VITALS: Ht 188 cm; Wt 110.0 kg
[2021-11-24 22:02] LABS: HEMATOCRIT 43.9 % (39.0-50.0); IMMATURE GRANULOCYTES 0.1 % (0.0-5.0); MEAN CELL VOLUME 77.2 fL CALC (80.0-100.0); MEAN CORPUSCULAR HGB 24.6 pG CALC (26.0-32.0); MEAN CORPUSCULAR HGB CONC 31.9 g/dL CAL (32.0-36.0); NEUT# 3.96 thou/uL (1.82-7.42); RED BLOOD COUNT 5.69 mill/uL (4.70-6.10); RED CELL DISTRI WIDTH 14.2 % (11.5-15.5); URINE BILIRUBIN - DIPSTICK NEGATIVE (NEGATIVE); URINE BLOOD DIPSTICK NEGATIVE (NEGATIVE); URINE COLOR YELLOW; URINE GLUCOSE - DIPSTICK NEGATIVE (NEGATIVE); URINE KETONE NEGATIVE (NEGATIVE); URINE LEUK ESTERASE NEGATIVE (NEGATIVE); URINE NITRITE - DIPSTICK NEGATIVE (Negative); URINE PROTEIN - DIPSTICK TRACE mg/dL (NEG-TRACE); URINE SPECIFIC GRAVITY >=1.030; URINE UROBILINOGEN - DIPSTICK 0.2 E.U./dL (0.2)
[2021-11-24 22:20] LABS: ALBUMIN 4.7 g/dL (3.2-5.0); ALKALINE PHOSPHATASE 107 u/l (38-126); AMYLASE 71 u/l (30-110); ANION GAP 15 (6-22 (CALC)); BILIRUBIN, TOTAL 0.7 mg/dL (0.0-1.4); BUN 11 mg/dL (9-20); BUN/CREATININE RATIO 12 (12-20 (CALC)); CARBON DIOXIDE 28 mmol/l (22-30); CHLORIDE 101 mmol/l (95-108); CREATININE 0.9 mg/dL (0.7-1.3); GFR > 60 ML/MIN (>=60 (CALC)); GFR FOR AFR.AMER. > 60 ML/MIN (>=60 (CALC)); LIPASE 174 u/l (23-300); POTASSIUM 4.2 mmol/l (3.5-5.1); SGOT/AST 46 u/l (17-59); SODIUM 139 mmol/l (137-146); TOTAL PROTEIN 7.9 g/dL (6.3-8.2)
[2021-11-25 04:12] VITALS: BP 143/94
== END 2021-11-24 23:20 | disposition home or self-care (01) | DRG 392 ==
LOC: ED 18:54
PROVIDERS: Emergency Medicine
DX: R10.10 Upper abdominal pain, unspecified (principal); R11.0 Nausea; I10 Essential (primary) hypertension; F17.200 Nicotine dependence, unspecified, uncomplicated

== ENCOUNTER 2022-01-09 14:28 | Observation (INO) | payer OTHER ==
[~2022-01-09] VITALS: Ht 188 cm; Wt 112.0 kg
--- NOTE | 2022-01-09 17:22 | NUR ---
PT ESCORTED TO ROOM 3 FOR EVAL OF ABD PAIN
[2022-01-09 17:25] LABS: HEMATOCRIT 40.1 % (39.0-50.0); HEMOGLOBIN 12.9 g/dl (14.0-18.0); IMMATURE GRANULOCYTES 0.2 % (0.0-5.0); MEAN CELL VOLUME 77.3 fL CALC (80.0-100.0); MEAN CORPUSCULAR HGB 24.9 pG CALC (26.0-32.0); MEAN CORPUSCULAR HGB CONC 32.2 g/dL CAL (32.0-36.0); NEUT# 6.75 thou/uL (1.82-7.42); RED BLOOD COUNT 5.19 mill/uL (4.70-6.10)
[2022-01-09 17:33] LABS: ALBUMIN 4.7 g/dL (3.2-5.0); ALKALINE PHOSPHATASE 99 u/l (38-126); AMYLASE 453 u/l (30-110); ANION GAP 13 (6-22 (CALC)); BUN 6 mg/dL (9-20); BUN/CREATININE RATIO 8 (12-20 (CALC)); CARBON DIOXIDE 29 mmol/l (22-30); CHLORIDE 96 mmol/l (95-108); CREATININE 0.8 mg/dL (0.7-1.3); ETHYL ALCOHOL 0 mg/dl (0-30); GFR > 60 ML/MIN (>=60 (CALC)); GFR FOR AFR.AMER. > 60 ML/MIN (>=60 (CALC)); POTASSIUM 3.9 mmol/l (3.5-5.1); SGOT/AST 48 u/l (17-59); SODIUM 134 mmol/l (137-146); TOTAL PROTEIN 7.9 g/dL (6.3-8.2)
[2022-01-09 17:39] LABS: BILIRUBIN, TOTAL 1.2 mg/dL (0.0-1.4); LIPASE 5896 u/l (23-300)
[2022-01-09 18:25] LABS: URINE BILIRUBIN - DIPSTICK NEGATIVE (NEGATIVE); URINE BLOOD DIPSTICK TRACE-INTACT (NEGATIVE); URINE COLOR YELLOW; URINE GLUCOSE - DIPSTICK NEGATIVE (NEGATIVE); URINE KETONE TRACE mg/dL (NEGATIVE); URINE LEUK ESTERASE NEGATIVE (NEGATIVE); URINE PH 6.5 (4.5-8.0); URINE PROTEIN - DIPSTICK TRACE mg/dL (NEG-TRACE); URINE UROBILINOGEN - DIPSTICK 0.2 E.U./dL (0.2)
[2022-01-09 18:26] LABS: URINE NITRITE - DIPSTICK NEGATIVE (Negative)
--- NOTE | 2022-01-09 19:23 | NUR ---
MEDICATED ORDERED, IVF INFUSING WILL CONTINUE TO MONITOR.
--- NOTE | 2022-01-09 20:15 | NUR ---
PT RESTING STATES FELLING MUCH BETTER, AWARE OF CLEAR LIQUID DIET ORDER BUT STATES HE DOESN'T WANT ANYTHING AT THIS TIME, ALSO AWARE OF PLANNED ADMISSION
--- NOTE | 2022-01-09 21:19 | NUR ---
RECIEVED REPORT FROM CAN KUMARI
--- NOTE | 2022-01-09 21:20 | NUR ---
REPORT CALLED TO YANELIS COBIAN ON MED SURG
--- NOTE | 2022-01-09 21:25 | NUR ---
AWARE OF BP WILL ORDER PRN MEDICATION, RECIEVING NURSE AWARE.
--- NOTE | 2022-01-09 21:30 | NUR ---
PT TRASPORTED TO MED SURG VIA WHEELCHAIR. BELONGINSG WITH PT
--- NOTE | 2022-01-09 21:33 | NUR ---
PT ARRIVED TO [facility] ROOM 278 VIA WHEELCHAIR ACCOMPAINED BY ER STAFF. PT IS A/OX3. ASSESSMENT COMPLETED. RESPIRATIONS EVEN AND UNLABORED. LUNG SOUNDS CLEAR. HEART RHYTHM NORMAL. BOWEL SOUNDS ACTIVE, LBM 01/09/22. PULSES STRONG. #20G RAC FLUSHED, SITE PATENT. IVF STARTED PER ORDER. PT COMPLAINS OF 8/10 ABD PAIN IN ALL QUADRANTS.PT TOT BE MEDICATED PER EMAR. NKDA NOTED, ALLERGY BAND AND FALL RISK BAND APPLIED. PT ORIENTED TO ROOM AND CALL SYSTEM. ALL SAFTEY PRECAUTIONS ARE IN PLACE WITH CALL LIGHT IN REACH. WILL CONTINUE TO MONITOR.
[2022-01-09 21:37] VITALS: BP 175/83
--- NOTE | 2022-01-09 22:41 | NUR ---
PT MEDICATED FOR NAUSEA AND PAIN AT THIS TIME. PT TOLERATED WELL
--- NOTE | 2022-01-09 23:28 | NUR ---
PT RESTING IN BED WITH EYES CLOSED, EASILY AROUSED TO VERBAL STIMULI, BP OBTAINED, PT MEDICATED WITH NORVASC AT THIS TIME SINCE EMESIS HAS SUBSIDED. PT VOICES NO NEEDS OR COMPLAINTS AT THIS TIME, CALL LIGHT IN REACH,CONTINUE TO MONITOR.
--- NOTE | 2022-01-10 02:15 | NUR ---
PT CALLED C/O PAIN 07/25 TO ABD,PT MEDICATED PER JAN, CALL LIGHT IN REACH,CONTINUE TO MONITOR.
[2022-01-10 04:00] VITALS: BP 183/96
--- NOTE | 2022-01-10 04:53 | NUR ---
PT HYPERTENSIVE, PRN LABETOLOL GIVEN BY RN. PT C/O PAIN, DISCUSSED RELAXATION TECHNIQUES, WILL MEDICATE WHEN MED TIME AVAILABLE. NO SIGNS OF DISTRESS NOTED, RESP EVEN AND UNLABORED. CALL LIGHT IN REACH,CONTINUE TO MONITOR.
[2022-01-10 05:22] VITALS: BP 181/92
--- NOTE | 2022-01-10 06:00 | NUR ---
PT RESTING IN BED, CONTINUES WITH EPISODES OF EMESIS, PT MEDICATED PER MAR, UNABLE TO REASSESS BP AT THIS TIME DUE TO CONTINUED VOMITTING. NO SIGNS OF DISTRESS NOTED, RESP EVEN AND UNLABORED. COOL WASH CLOTH PROVIDED. CALL LIGHT IN REACH,CONTINUE TO MONITOR.
[2022-01-10 06:18] LABS: ALBUMIN 3.9 g/dL (3.2-5.0); ALKALINE PHOSPHATASE 84 u/l (38-126); AMYLASE 300 u/l (30-110); ANION GAP 11 (6-22 (CALC)); BILIRUBIN, TOTAL 1.3 mg/dL (0.0-1.4); BUN 5 mg/dL (9-20); BUN/CREATININE RATIO 9 (12-20 (CALC)); CARBON DIOXIDE 26 mmol/l (22-30); CHLORIDE 101 mmol/l (95-108); CREATININE 0.6 mg/dL (0.7-1.3); GFR > 60 ML/MIN (>=60 (CALC)); GFR FOR AFR.AMER. > 60 ML/MIN (>=60 (CALC)); MAGNESIUM 1.8 mg/dL (1.6-2.3); POTASSIUM 3.7 mmol/l (3.5-5.1); SGOT/AST 30 u/l (17-59); SODIUM 135 mmol/l (137-146); TOTAL PROTEIN 6.6 g/dL (6.3-8.2)
[2022-01-10 06:25] LABS: LIPASE 2664 u/l (23-300)
[2022-01-10] MEDS ORDERED: DOCUSATE SOD100 MG PO (08:27)
[2022-01-10] MEDS ORDERED: IBUPROFEN600 MG PO (08:28)
[2022-01-10] MEDS ORDERED: SILDENAFIL100 MG PO (08:28)
[2022-01-10] MEDS ORDERED: HYDROMORPHON8 MG PO (08:28)
--- NOTE | 2022-01-10 08:35 | NUR ---
PT LAYING IN BED. A&O X3. PT REPORTS FEELING NAUSEOUS WITH NO RELIEF FROM ZOFRAN. ORDER OBTAINED FOR PHENERGAN; PT EDUCATED ON MEDICATION PT VERBALIZED UNDERSTANDING; MEDICATION MIXED PER PROTOCOL. PT REPORTS ABD PAIN. CLEAR BREATH SOUNDS UPON AUSCULTATION. ACTIVE BOWEL SOUNDS X4 QUADRANTS. ASSESSMENT COMPLETED. DISCUSSED POC. CALL LIGHT WITHIN REACH.
--- NOTE | 2022-01-10 11:52 | NUR ---
PT REPORTS IMPROVEMENT IN NAUSEA AND PAIN. NO OTHER NEEDS AT THIS TIME. CALL LIGHT WITHIN REACH.
--- NOTE | 2022-01-10 16:06 | NUR ---
PT ASSITED TO SHOWER. DENIES ANY CURRENT NAUSEA AT THIS TIME. AT SIDE TO ASSIST PT. CALL LIGHT WITHIN REACH.
[2022-01-10 16:45] VITALS: BP 186/102
--- NOTE | 2022-01-10 16:56 | NUR ---
LABETOLOL SLOW IVP ADMINISTERED FOR BP OF 186/102; TYLENOL ALSO GIVEN FOR LOW GRADE TEMP OF 100.6. NO OTHER NEEDS AT THIS TIME. CALL LIGHT WITHIN REACH.
[2022-01-10 18:08] VITALS: BP 161/93
--- NOTE | 2022-01-10 18:23 | NUR ---
BP UPON REASSESSMENT 161/93 WITH TEMP OF 99.7. NO OTHER NEEDS AT THIS TIME. CALL LIGHT WITHIN REACH.
--- NOTE | 2022-01-10 19:35 | NUR ---
PT RESTING IN BED, NO SIGNS OF DISTRESS NOTED, RESP EVEN AND UNLABORED. PT ALERT AND ORIENTED X3, VOICES NO NEEDS OR COMPLAINTS AT THIS TIME, SKIN INTACT, NO EDEMA, NO NAUSEA OR VOMITING AT THIS TIME. ASSESSMENT REVIEW COMPLETED, CALL LIGHT IN REACH,CONTINUE TO MONITOR.
[2022-01-10 19:39] VITALS: BP 155/92
--- NOTE | 2022-01-10 21:47 | NUR ---
PT RESTING IN BED, C/O PAIN TO ABD MEDICATED PER MAR, CALL LIGHT IN REACH,CONTINUE TO MONITOR.
--- NOTE | 2022-01-11 | NUR ---
PT RESTING IN BED WITH EYES CLOSED, NO SIGNS OF DISTRESS NOTED, RESP EVEN AND UNLABORED. CALL LIGHT IN REACH,CONTINUE TO MONITOR.
[2022-01-11 04:00] VITALS: BP 167/108
--- NOTE | 2022-01-11 04:00 | NUR ---
PT RESTING IN BED, NEW BAG HUNG, PT VOICES NO NEEDS OR COMPLAINTS AT THIS TIME. CALL LIGHT IN REACH,CONTINUE TO MONITOR.
[2022-01-11 05:33] LABS: ANION GAP 10 (6-22 (CALC)); BUN 3 mg/dL (9-20); BUN/CREATININE RATIO 6 (12-20 (CALC)); CARBON DIOXIDE 27 mmol/l (22-30); CHLORIDE 103 mmol/l (95-108); CREATININE 0.6 mg/dL (0.7-1.3); GFR > 60 ML/MIN (>=60 (CALC)); GFR FOR AFR.AMER. > 60 ML/MIN (>=60 (CALC)); LIPASE 460 u/l (23-300); POTASSIUM 3.6 mmol/l (3.5-5.1); SODIUM 136 mmol/l (137-146)
[2022-01-11 05:35] LABS: HEMATOCRIT 36.5 % (39.0-50.0); HEMOGLOBIN 11.9 g/dl (14.0-18.0); MEAN CELL VOLUME 77.8 fL CALC (80.0-100.0); MEAN CORPUSCULAR HGB 25.4 pG CALC (26.0-32.0); MEAN CORPUSCULAR HGB CONC 32.6 g/dL CAL (32.0-36.0); RED BLOOD COUNT 4.69 mill/uL (4.70-6.10); RED CELL DISTRI WIDTH 14.9 % (11.5-15.5)
[2022-01-11 05:59] VITALS: BP 143/85
[2022-01-11 07:29] VITALS: BP 148/88
[2022-01-11 07:32] VITALS: BP 148/88
--- NOTE | 2022-01-11 07:35 | NUR ---
ASSESSMENT DONE. PATIENT IS ALERT AND ORIENT X3. PATIENT DENIES PAIN. RESPS EVEN AND UNLABORED. IVF INFUSING WELL PER ORDER. PATIENT REQUESTING FOOD TOLD PATIENT WE HAVE TO WAIT FOR DOCOTR TO CHANGE THE ORDER. PATIENT VERBALIZED UNDERSTANDING. PATIENT DENIES ANY OTHER NEEDS AT THIS TIME. CALL LIGHT IN REACH.
[2022-01-11] MEDS ORDERED: AMLODIPINE BESYL5 MG PO (11:47)
--- NOTE | 2022-01-11 12:35 | NUR ---
PATIENT IS SITTING IN THE RECLINER EATING HIS LUNCH. PATIENT DENIES ANY OTHER NEEDS AT THIS TIME. CALL LIGHT IN REACH.
--- NOTE | 2022-01-11 12:35 | NUR ---
PATIENT IS EATING HIS LUNCH WITH NO DISTRESS NOTED. PATIENT DENIES NEEDS. CALL LIGHT IN REACH.
--- NOTE | 2022-01-11 12:51 | NUR ---
Discharge instructions given. Patient verbalizes understanding of same. Discharged in stable condition via Ambulatory to Home . All belongings sent with pt.
== END 2022-01-11 12:51 | disposition home or self-care (01) | DRG 440 ==
LOC: ED 14:28 → ED-I 16:37 → ED 18:59 → MS2 19:31
PROVIDERS: Emergency Medicine; ADMIT Internal Medicine; ATTEND Internal Medicine
DX: K85.90 Acute pancreatitis without necrosis or infection, unspecified (principal); K86.1 Other chronic pancreatitis; I10 Essential (primary) hypertension; F17.200 Nicotine dependence, unspecified, uncomplicated; Z20.822 Contact with and (suspected) exposure to COVID-19
CPT/HCPCS: J1650; Q9967

== ENCOUNTER 2022-01-31 17:21 | Emergency (ER) | payer OTHER ==
[2022-01-31] VITALS (9 sets, daily range): BP systolic 117–144; BP diastolic 75–88
[~2022-01-31] VITALS: Ht 188 cm; Wt 115.9 kg
[~2022-01-31 17:21] MED LIST changes: +AMLODIPINE BESYL5 MG PO; +DOCUSATE SOD100 MG PO; +IBUPROFEN600 MG PO
[2022-01-31 18:37] LABS: HEMOGLOBIN 13.4 g/dl (14.0-18.0); IMMATURE GRANULOCYTES 0.1 % (0.0-5.0); MEAN CELL VOLUME 78.1 fL CALC (80.0-100.0); MEAN CORPUSCULAR HGB 24.9 pG CALC (26.0-32.0); MEAN CORPUSCULAR HGB CONC 31.9 g/dL CAL (32.0-36.0); NEUT# 5.24 thou/uL (1.82-7.42); RED BLOOD COUNT 5.38 mill/uL (4.70-6.10); RED CELL DISTRI WIDTH 15.7 % (11.5-15.5)
[2022-01-31 18:42] LABS: URINE BILIRUBIN - DIPSTICK NEGATIVE (NEGATIVE); URINE BLOOD DIPSTICK TRACE-INTACT (NEGATIVE); URINE COLOR YELLOW; URINE GLUCOSE - DIPSTICK NEGATIVE (NEGATIVE); URINE KETONE TRACE mg/dL (NEGATIVE); URINE LEUK ESTERASE NEGATIVE (NEGATIVE); URINE PH 5.5 (4.5-8.0); URINE PROTEIN - DIPSTICK NEGATIVE (NEG-TRACE); URINE SPECIFIC GRAVITY >=1.030; URINE UROBILINOGEN - DIPSTICK 0.2 E.U./dL (0.2)
[2022-01-31 18:43] LABS: URINE NITRITE - DIPSTICK NEGATIVE (Negative)
[2022-01-31 18:54] LABS: ALBUMIN 4.6 g/dL (3.2-5.0); ALKALINE PHOSPHATASE 104 u/l (38-126); AMYLASE 57 u/l (30-110); ANION GAP 15 (6-22 (CALC)); BILIRUBIN, TOTAL 1.4 mg/dL (0.0-1.4); BUN 6 mg/dL (9-20); BUN/CREATININE RATIO 9 (12-20 (CALC)); CARBON DIOXIDE 25 mmol/l (22-30); CHLORIDE 100 mmol/l (95-108); CREATININE 0.7 mg/dL (0.7-1.3); ETHYL ALCOHOL 0 mg/dl (0-30); GFR > 60 ML/MIN (>=60 (CALC)); GFR FOR AFR.AMER. > 60 ML/MIN (>=60 (CALC)); LIPASE 165 u/l (23-300); POTASSIUM 3.9 mmol/l (3.5-5.1); SGOT/AST 40 u/l (17-59); SODIUM 137 mmol/l (137-146); TOTAL PROTEIN 7.7 g/dL (6.3-8.2)
[2022-01-31] MEDS ORDERED: ULTRAM50 M1 PO (19:49)
[2022-01-31] MEDS ORDERED: ONDANSETRON4 MG PO (19:49)
== END 2022-01-31 20:16 | disposition home or self-care (01) | DRG 392 ==
LOC: ED 17:21
DX: R10.11 Right upper quadrant pain (principal); I10 Essential (primary) hypertension; F17.210 Nicotine dependence, cigarettes, uncomplicated
CPT/HCPCS: Q9967

== ENCOUNTER 2022-03-18 03:18 | Emergency (ER) | payer OTHER ==
[2022-03-18] VITALS (11 sets, daily range): BP systolic 113–148; BP diastolic 63–91
[~2022-03-18] VITALS: Ht 188 cm; Wt 113.0 kg
[~2022-03-18 03:18] MED LIST changes: +ONDANSETRON4 MG PO
[2022-03-18 03:52] LABS: HEMATOCRIT 41.5 % (39.0-50.0); HEMOGLOBIN 13.5 g/dl (14.0-18.0); IMMATURE GRANULOCYTES 0.4 % (0.0-5.0); MEAN CELL VOLUME 79.8 fL CALC (80.0-100.0); MEAN CORPUSCULAR HGB CONC 32.5 g/dL CAL (32.0-36.0); NEUT# 2.66 thou/uL (1.82-7.42); RED BLOOD COUNT 5.2 mill/uL (4.70-6.10); RED CELL DISTRI WIDTH 15.6 % (11.5-15.5)
[2022-03-18 03:54] LABS: URINE BILIRUBIN - DIPSTICK NEGATIVE (NEGATIVE); URINE BLOOD DIPSTICK NEGATIVE (NEGATIVE); URINE COLOR YELLOW; URINE GLUCOSE - DIPSTICK NEGATIVE (NEGATIVE); URINE KETONE NEGATIVE (NEGATIVE); URINE LEUK ESTERASE NEGATIVE (NEGATIVE); URINE PROTEIN - DIPSTICK NEGATIVE (NEG-TRACE)
[2022-03-18 03:55] LABS: URINE NITRITE - DIPSTICK NEGATIVE (Negative)
[2022-03-18 04:10] LABS: ALBUMIN 4.3 g/dL (3.2-5.0); ALKALINE PHOSPHATASE 83 u/l (38-126); AMYLASE 122 u/l (30-110); ANION GAP 14 (6-22 (CALC)); BILIRUBIN, TOTAL 0.9 mg/dL (0.0-1.4); BUN 7 mg/dL (9-20); BUN/CREATININE RATIO 9 (12-20 (CALC)); CARBON DIOXIDE 24 mmol/l (22-30); CHLORIDE 104 mmol/l (95-108); CREATININE 0.8 mg/dL (0.7-1.3); ETHYL ALCOHOL 53 mg/dl (0-30); GFR > 60 ML/MIN (>=60 (CALC)); GFR FOR AFR.AMER. > 60 ML/MIN (>=60 (CALC)); LIPASE 621 u/l (23-300); POTASSIUM 4.4 mmol/l (3.5-5.1); SGOT/AST 45 u/l (17-59); SODIUM 138 mmol/l (137-146); TOTAL PROTEIN 7.3 g/dL (6.3-8.2)
[2022-03-18 04:21] LABS: MYOGLOBIN 20 ng/mL (0 - 121)
[2022-03-18] MEDS ORDERED: PROMETHAZINE HY25 M1 PO (06:57)
[2022-03-18] MEDS ORDERED: TRAMADOL HCL50 MG PO (06:57)
== END 2022-03-18 07:38 | disposition home or self-care (01) | DRG 440 ==
LOC: ED 03:18
PROVIDERS: Family Medicine
DX: K85.20 Alcohol induced acute pancreatitis without necrosis or infection (principal); F10.10 Alcohol abuse, uncomplicated; I10 Essential (primary) hypertension; F17.200 Nicotine dependence, unspecified, uncomplicated
CPT/HCPCS: Q9967; S0164

== ENCOUNTER 2022-03-31 18:46 | Emergency (ER) | payer OTHER ==
[~2022-03-31] VITALS: Ht 188 cm; Wt 113.3 kg
[~2022-03-31 18:46] MED LIST changes: +PROMETHAZINE HY25 M1 PO; +TRAMADOL HCL50 MG PO
[2022-03-31 19:19] LABS: HEMATOCRIT 39.6 % (39.0-50.0); IMMATURE GRANULOCYTES 0.1 % (0.0-5.0); MEAN CELL VOLUME 79.4 fL CALC (80.0-100.0); MEAN CORPUSCULAR HGB 26.1 pG CALC (26.0-32.0); MEAN CORPUSCULAR HGB CONC 32.8 g/dL CAL (32.0-36.0); NEUT# 3.56 thou/uL (1.82-7.42); RED BLOOD COUNT 4.99 mill/uL (4.70-6.10); RED CELL DISTRI WIDTH 14.8 % (11.5-15.5)
[2022-03-31 19:34] LABS: ALBUMIN 4.6 g/dL (3.2-5.0); ALKALINE PHOSPHATASE 107 u/l (38-126); AMYLASE 102 u/l (30-110); ANION GAP 16 (6-22 (CALC)); BILIRUBIN, TOTAL 0.6 mg/dL (0.0-1.4); BUN 6 mg/dL (9-20); BUN/CREATININE RATIO 8 (12-20 (CALC)); CARBON DIOXIDE 25 mmol/l (22-30); CHLORIDE 104 mmol/l (95-108); CREATININE 0.8 mg/dL (0.7-1.3); ETHYL ALCOHOL 0 mg/dl (0-30); GFR > 60 ML/MIN (>=60 (CALC)); GFR FOR AFR.AMER. > 60 ML/MIN (>=60 (CALC)); LIPASE 595 u/l (23-300); POTASSIUM 4.1 mmol/l (3.5-5.1); SGOT/AST 56 u/l (17-59); SODIUM 140 mmol/l (137-146); TOTAL PROTEIN 8.1 g/dL (6.3-8.2)
[2022-03-31 20:07] LABS: URINE BILIRUBIN - DIPSTICK NEGATIVE (NEGATIVE); URINE BLOOD DIPSTICK TRACE-INTACT (NEGATIVE); URINE COLOR YELLOW; URINE GLUCOSE - DIPSTICK NEGATIVE (NEGATIVE); URINE KETONE NEGATIVE (NEGATIVE); URINE LEUK ESTERASE NEGATIVE (NEGATIVE); URINE PH 5.5 (4.5-8.0); URINE PROTEIN - DIPSTICK TRACE mg/dL (NEG-TRACE); URINE SPECIFIC GRAVITY >=1.030; URINE UROBILINOGEN - DIPSTICK 0.2 E.U./dL (0.2)
[2022-03-31 20:08] LABS: URINE NITRITE - DIPSTICK NEGATIVE (Negative)
[2022-03-31 20:16] VITALS: BP 150/90
[2022-03-31] MEDS ORDERED: CARAFATE1 GM PO (20:18)
[2022-03-31] MEDS ORDERED: PROTONIX40 M2 PO (20:18)
== END 2022-03-31 20:30 | disposition home or self-care (01) | DRG 392 ==
LOC: ED 18:46
DX: R10.12 Left upper quadrant pain (principal); I10 Essential (primary) hypertension; F17.210 Nicotine dependence, cigarettes, uncomplicated
CPT/HCPCS: S0164

== ENCOUNTER 2022-05-06 06:27 | Emergency (ER) | payer OTHER ==
[~2022-05-06] VITALS: Ht 188 cm; Wt 115.0 kg
[2022-05-06] VITALS (10 sets, daily range): BP systolic 133–162; BP diastolic 77–97
[2022-05-06 06:57] LABS: HEMATOCRIT 41.2 % (39.0-50.0); HEMOGLOBIN 13.2 g/dl (14.0-18.0); IMMATURE GRANULOCYTES 0.1 % (0.0-5.0); MEAN CELL VOLUME 79.8 fL CALC (80.0-100.0); MEAN CORPUSCULAR HGB 25.6 pG CALC (26.0-32.0); NEUT# 3.49 thou/uL (1.82-7.42); RED BLOOD COUNT 5.16 mill/uL (4.70-6.10); RED CELL DISTRI WIDTH 14.6 % (11.5-15.5)
[2022-05-06 07:25] LABS: ALBUMIN 4.3 g/dL (3.2-5.0); ALKALINE PHOSPHATASE 118 u/l (38-126); AMYLASE 265 u/l (30-110); ANION GAP 11 (6-22 (CALC)); BUN 9 mg/dL (9-20); BUN/CREATININE RATIO 12 (12-20 (CALC)); CARBON DIOXIDE 27 mmol/l (22-30); CHLORIDE 102 mmol/l (95-108); CREATININE 0.8 mg/dL (0.7-1.3); ETHYL ALCOHOL 0 mg/dl (0-30); GFR FOR AFR.AMER. > 60 ML/MIN (>=60 (CALC)); GFR OTHER RACES > 60 ML/MIN (>=60 (CALC)); POTASSIUM 3.9 mmol/l (3.5-5.1); SGOT/AST 72 u/l (17-59); SODIUM 136 mmol/l (137-146); TOTAL PROTEIN 7.2 g/dL (6.3-8.2)
[2022-05-06 07:31] LABS: BILIRUBIN, TOTAL 1.4 mg/dL (0.0-1.4); LIPASE 3455 u/l (23-300)
[2022-05-06 07:46] LABS: URINE BILIRUBIN - DIPSTICK NEGATIVE (NEGATIVE); URINE BLOOD DIPSTICK NEGATIVE (NEGATIVE); URINE COLOR YELLOW; URINE GLUCOSE - DIPSTICK NEGATIVE (NEGATIVE); URINE KETONE NEGATIVE (NEGATIVE); URINE LEUK ESTERASE NEGATIVE (NEGATIVE); URINE PROTEIN - DIPSTICK NEGATIVE (NEG-TRACE); URINE UROBILINOGEN - DIPSTICK 0.2 E.U./dL (0.2)
[2022-05-06 07:49] LABS: URINE NITRITE - DIPSTICK NEGATIVE (Negative)
== END 2022-05-06 10:12 | disposition short-term general hospital (02) | DRG 440 ==
LOC: ED 06:27
PROVIDERS: Family Medicine
DX: K85.91 Acute pancreatitis with uninfected necrosis, unspecified (principal); I10 Essential (primary) hypertension; F17.210 Nicotine dependence, cigarettes, uncomplicated
CPT/HCPCS: Q9967

== ENCOUNTER 2022-05-25 15:03 | Emergency (ER) | payer OTHER ==
[2022-05-25] VITALS (11 sets, daily range): BP systolic 140–171; BP diastolic 88–105
[~2022-05-25] VITALS: Ht 188 cm; Wt 115.9 kg
[2022-05-25 16:10] LABS: URINE BILIRUBIN - DIPSTICK NEGATIVE (NEGATIVE); URINE BLOOD DIPSTICK TRACE-INTACT (NEGATIVE); URINE COLOR YELLOW; URINE GLUCOSE - DIPSTICK NEGATIVE (NEGATIVE); URINE KETONE NEGATIVE (NEGATIVE); URINE LEUK ESTERASE TRACE (NEGATIVE); URINE PROTEIN - DIPSTICK TRACE mg/dL (NEG-TRACE); URINE SPECIFIC GRAVITY >=1.030; URINE UROBILINOGEN - DIPSTICK 0.2 E.U./dL (0.2)
[2022-05-25 16:12] LABS: URINE NITRITE - DIPSTICK NEGATIVE (Negative)
[2022-05-25 16:13] LABS: HEMATOCRIT 40.7 % (39.0-50.0); HEMOGLOBIN 13.3 g/dl (14.0-18.0); IMMATURE GRANULOCYTES 0.1 % (0.0-5.0); MEAN CELL VOLUME 77.1 fL CALC (80.0-100.0); MEAN CORPUSCULAR HGB 25.2 pG CALC (26.0-32.0); MEAN CORPUSCULAR HGB CONC 32.7 g/dL CAL (32.0-36.0); NEUT# 4.34 thou/uL (1.82-7.42); RED BLOOD COUNT 5.28 mill/uL (4.70-6.10); RED CELL DISTRI WIDTH 14.7 % (11.5-15.5)
[2022-05-25 16:33] LABS: ALBUMIN 4.3 g/dL (3.2-5.0); ALKALINE PHOSPHATASE 113 u/l (38-126); AMYLASE 68 u/l (30-110); ANION GAP 12 (6-22 (CALC)); BUN 7 mg/dL (9-20); BUN/CREATININE RATIO 9 (12-20 (CALC)); CARBON DIOXIDE 26 mmol/l (22-30); CHLORIDE 104 mmol/l (95-108); CREATININE 0.7 mg/dL (0.7-1.3); GFR FOR AFR.AMER. > 60 ML/MIN (>=60 (CALC)); GFR OTHER RACES > 60 ML/MIN (>=60 (CALC)); LIPASE 121 u/l (23-300); POTASSIUM 3.8 mmol/l (3.5-5.1); SGOT/AST 56 u/l (17-59); SODIUM 137 mmol/l (137-146); TOTAL PROTEIN 7.1 g/dL (6.3-8.2)
[2022-05-25 16:39] LABS: BILIRUBIN, TOTAL 0.8 mg/dL (0.0-1.4)
[2022-05-25] MEDS ORDERED: HYDROCO/APAP1 TA9 PO (18:28)
[2022-05-25] MEDS ORDERED: ONDANSETRON4 MG PO (18:28)
== END 2022-05-25 19:09 | disposition home or self-care (01) | DRG 440 ==
LOC: ED 15:08
PROVIDERS: Nurse Practitioner
DX: K86.1 Other chronic pancreatitis (principal); I10 Essential (primary) hypertension; F17.210 Nicotine dependence, cigarettes, uncomplicated
CPT/HCPCS: Q9967

== ENCOUNTER 2022-06-26 02:40 | Emergency (ER) | payer OTHER ==
[2022-06-26] VITALS (9 sets, daily range): BP systolic 131–175; BP diastolic 85–101
[~2022-06-26] VITALS: Ht 188 cm; Wt 113.6 kg
[~2022-06-26 02:40] MED LIST changes: +HYDROCO/APAP1 TA9 PO
[2022-06-26 03:35] LABS: URINE BILIRUBIN - DIPSTICK NEGATIVE (NEGATIVE); URINE BLOOD DIPSTICK TRACE-INTACT (NEGATIVE); URINE COLOR YELLOW; URINE GLUCOSE - DIPSTICK NEGATIVE (NEGATIVE); URINE KETONE NEGATIVE (NEGATIVE); URINE LEUK ESTERASE NEGATIVE (NEGATIVE); URINE PROTEIN - DIPSTICK TRACE mg/dL (NEG-TRACE); URINE SPECIFIC GRAVITY >=1.030; URINE UROBILINOGEN - DIPSTICK 0.2 E.U./dL (0.2)
[2022-06-26 03:40] LABS: URINE NITRITE - DIPSTICK NEGATIVE (Negative)
[2022-06-26 03:41] LABS: ALBUMIN 4.4 g/dL (3.2-5.0); ALKALINE PHOSPHATASE 122 u/l (38-126); ANION GAP 15 (6-22 (CALC)); BILIRUBIN, TOTAL 1.5 mg/dL (0.0-1.4); BUN 9 mg/dL (9-20); BUN/CREATININE RATIO 12 (12-20 (CALC)); CARBON DIOXIDE 25 mmol/l (22-30); CHLORIDE 105 mmol/l (95-108); CREATININE 0.8 mg/dL (0.7-1.3); GFR FOR AFR.AMER. > 60 ML/MIN (>=60 (CALC)); GFR OTHER RACES > 60 ML/MIN (>=60 (CALC)); LIPASE 190 u/l (23-300); POTASSIUM 4.1 mmol/l (3.5-5.1); SGOT/AST 39 u/l (17-59); SODIUM 142 mmol/l (137-146); TOTAL PROTEIN 7.4 g/dL (6.3-8.2)
[2022-06-26 03:41] LABS: HEMATOCRIT 42.7 % (39.0-50.0); IMMATURE GRANULOCYTES 0.1 % (0.0-5.0); MEAN CELL VOLUME 77.2 fL CALC (80.0-100.0); MEAN CORPUSCULAR HGB 25.3 pG CALC (26.0-32.0); MEAN CORPUSCULAR HGB CONC 32.8 g/dL CAL (32.0-36.0); NEUT# 4.62 thou/uL (1.82-7.42); RED BLOOD COUNT 5.53 mill/uL (4.70-6.10); RED CELL DISTRI WIDTH 15.2 % (11.5-15.5)
[2022-06-26] MEDS ORDERED: PROMETHAZINE HY25 M1 PO (05:50)
== END 2022-06-26 06:00 | disposition home or self-care (01) | DRG 392 ==
LOC: ED 02:40
PROVIDERS: Family Medicine
DX: A08.4 Viral intestinal infection, unspecified (principal); I10 Essential (primary) hypertension; F17.210 Nicotine dependence, cigarettes, uncomplicated
CPT/HCPCS: Q9967; S0164

== ENCOUNTER 2022-06-28 12:37 | Emergency (ER) | payer OTHER ==
[~2022-06-28] VITALS: Ht 188 cm; Wt 113.6 kg
[2022-06-28 12:51] VITALS: BP 152/101
[2022-06-28 13:01] VITALS: BP 159/86
[2022-06-28 13:13] LABS: HEMOGLOBIN 14.4 g/dl (14.0-18.0); IMMATURE GRANULOCYTES 0.1 % (0.0-5.0); MEAN CELL VOLUME 77.6 fL CALC (80.0-100.0); MEAN CORPUSCULAR HGB 25.4 pG CALC (26.0-32.0); MEAN CORPUSCULAR HGB CONC 32.7 g/dL CAL (32.0-36.0); NEUT# 4.92 thou/uL (1.82-7.42); RED BLOOD COUNT 5.67 mill/uL (4.70-6.10); RED CELL DISTRI WIDTH 15.5 % (11.5-15.5)
[2022-06-28 13:34] LABS: ALBUMIN 4.6 g/dL (3.2-5.0); ALKALINE PHOSPHATASE 101 u/l (38-126); ANION GAP 11 (6-22 (CALC)); BILIRUBIN, TOTAL 1.7 mg/dL (0.0-1.4); BUN 7 mg/dL (9-20); BUN/CREATININE RATIO 8 (12-20 (CALC)); CARBON DIOXIDE 29 mmol/l (22-30); CHLORIDE 103 mmol/l (95-108); CREATININE 0.8 mg/dL (0.7-1.3); GFR FOR AFR.AMER. > 60 ML/MIN (>=60 (CALC)); GFR OTHER RACES > 60 ML/MIN (>=60 (CALC)); LIPASE 1220 u/l (23-300); POTASSIUM 3.8 mmol/l (3.5-5.1); SGOT/AST 28 u/l (17-59); SODIUM 139 mmol/l (137-146); TOTAL PROTEIN 7.6 g/dL (6.3-8.2)
[2022-06-28] MEDS ORDERED: ZOFRAN4 MG/TAB PO (14:06)
[2022-06-28] MEDS ORDERED: TRAMADOL HYDROC50 M1 PO (14:10)
== END 2022-06-28 14:14 | disposition left against medical advice (07) | DRG 440 ==
LOC: ED 12:37 → ED-I 13:40 → ED 14:14
PROVIDERS: Family Medicine
DX: K85.91 Acute pancreatitis with uninfected necrosis, unspecified (principal); Z53.29 Procedure and treatment not carried out because of patient's decision for other reasons
CPT/HCPCS: Q9967

== ENCOUNTER 2022-07-14 06:31 | Emergency (ER) | payer OTHER ==
[~2022-07-14] VITALS: Ht 188 cm; Wt 113.6 kg
[~2022-07-14 06:31] MED LIST changes: +TRAMADOL HYDROC50 M1 PO
[2022-07-14 07:06] VITALS: BP 140/80
[2022-07-14 07:39] VITALS: BP 161/93
[2022-07-14 07:41] LABS: URINE BILIRUBIN - DIPSTICK NEGATIVE (NEGATIVE); URINE BLOOD DIPSTICK NEGATIVE (NEGATIVE); URINE COLOR YELLOW; URINE GLUCOSE - DIPSTICK NEGATIVE (NEGATIVE); URINE KETONE NEGATIVE (NEGATIVE); URINE LEUK ESTERASE NEGATIVE (NEGATIVE); URINE PROTEIN - DIPSTICK NEGATIVE (NEG-TRACE); URINE SPECIFIC GRAVITY 1.025
[2022-07-14 07:42] LABS: URINE NITRITE - DIPSTICK NEGATIVE (Negative)
[2022-07-14 07:50] LABS: HEMATOCRIT 45.1 % (39.0-50.0); HEMOGLOBIN 14.4 g/dl (14.0-18.0); IMMATURE GRANULOCYTES 0.3 % (0.0-5.0); MEAN CELL VOLUME 77.9 fL CALC (80.0-100.0); MEAN CORPUSCULAR HGB 24.9 pG CALC (26.0-32.0); MEAN CORPUSCULAR HGB CONC 31.9 g/dL CAL (32.0-36.0); NEUT# 4.45 thou/uL (1.82-7.42); RED BLOOD COUNT 5.79 mill/uL (4.70-6.10); RED CELL DISTRI WIDTH 15.2 % (11.5-15.5)
[2022-07-14 08:01] VITALS: BP 147/86
[2022-07-14 08:24] LABS: ALBUMIN 4.9 g/dL (3.2-5.0); ALKALINE PHOSPHATASE 116 u/l (38-126); ANION GAP 13 (6-22 (CALC)); BILIRUBIN, TOTAL 1.3 mg/dL (0.0-1.4); BUN 7 mg/dL (9-20); BUN/CREATININE RATIO 10 (12-20 (CALC)); CARBON DIOXIDE 27 mmol/l (22-30); CHLORIDE 102 mmol/l (95-108); CREATININE 0.7 mg/dL (0.7-1.3); GFR FOR AFR.AMER. > 60 ML/MIN (>=60 (CALC)); GFR OTHER RACES > 60 ML/MIN (>=60 (CALC)); LIPASE 816 u/l (23-300); POTASSIUM 4.4 mmol/l (3.5-5.1); SGOT/AST 30 u/l (17-59); SODIUM 139 mmol/l (137-146); TOTAL PROTEIN 8.1 g/dL (6.3-8.2)
[2022-07-14 08:30] VITALS: BP 148/84
[2022-07-14 09:00] VITALS: BP 153/101
[2022-07-14] MEDS ORDERED: HYDROCO/APAP1 T10 PO (09:07)
== END 2022-07-14 09:12 | disposition home or self-care (01) | DRG 440 ==
LOC: ED 06:31
PROVIDERS: Family Medicine
DX: K85.20 Alcohol induced acute pancreatitis without necrosis or infection (principal); F10.10 Alcohol abuse, uncomplicated; I10 Essential (primary) hypertension; F17.210 Nicotine dependence, cigarettes, uncomplicated

== ENCOUNTER 2022-07-27 13:10 | Emergency (ER) | payer OTHER ==
[~2022-07-27] VITALS: Ht 188 cm; Wt 114.0 kg
[2022-07-27] VITALS (15 sets, daily range): BP systolic 149–177; BP diastolic 75–121
[~2022-07-27 13:10] MED LIST changes: +HYDROCO/APAP1 T10 PO
[2022-07-27 13:32] LABS: HEMATOCRIT 43.3 % (39.0-50.0); HEMOGLOBIN 14.5 g/dl (14.0-18.0); IMMATURE GRANULOCYTES 0.6 % (0.0-5.0); MEAN CELL VOLUME 75.4 fL CALC (80.0-100.0); MEAN CORPUSCULAR HGB 25.3 pG CALC (26.0-32.0); MEAN CORPUSCULAR HGB CONC 33.5 g/dL CAL (32.0-36.0); NEUT# 3.66 thou/uL (1.82-7.42); RED BLOOD COUNT 5.74 mill/uL (4.70-6.10); RED CELL DISTRI WIDTH 14.9 % (11.5-15.5)
[2022-07-27 13:54] LABS: URINE BILIRUBIN - DIPSTICK NEGATIVE (NEGATIVE); URINE BLOOD DIPSTICK NEGATIVE (NEGATIVE); URINE COLOR YELLOW; URINE GLUCOSE - DIPSTICK NEGATIVE (NEGATIVE); URINE KETONE NEGATIVE (NEGATIVE); URINE LEUK ESTERASE NEGATIVE (NEGATIVE); URINE PROTEIN - DIPSTICK NEGATIVE (NEG-TRACE); URINE SPECIFIC GRAVITY <=1.005
[2022-07-27 13:55] LABS: URINE NITRITE - DIPSTICK NEGATIVE (Negative)
[2022-07-27 14:38] LABS: ALBUMIN 4.6 g/dL (3.2-5.0); ALKALINE PHOSPHATASE 98 u/l (38-126); ANION GAP 17 (6-22 (CALC)); BILIRUBIN, TOTAL 0.8 mg/dL (0.0-1.4); BUN 5 mg/dL (9-20); BUN/CREATININE RATIO 7 (12-20 (CALC)); CARBON DIOXIDE 23 mmol/l (22-30); CHLORIDE 101 mmol/l (95-108); CREATININE 0.7 mg/dL (0.7-1.3); GFR FOR AFR.AMER. > 60 ML/MIN (>=60 (CALC)); GFR OTHER RACES > 60 ML/MIN (>=60 (CALC)); LIPASE 420 u/l (23-300); POTASSIUM 3.9 mmol/l (3.5-5.1); SGOT/AST 28 u/l (17-59); SODIUM 136 mmol/l (137-146); TOTAL PROTEIN 7.6 g/dL (6.3-8.2)
== END 2022-07-27 17:10 | disposition home or self-care (01) | DRG 392 ==
LOC: ED 13:10
PROVIDERS: Family Medicine
DX: R10.9 Unspecified abdominal pain (principal); I10 Essential (primary) hypertension; F17.210 Nicotine dependence, cigarettes, uncomplicated
CPT/HCPCS: Q9967

== ENCOUNTER 2022-09-21 06:04 | Inpatient (IN) | payer OTHER ==
[~2022-09-21] VITALS: Ht 188 cm; Wt 108.4 kg
[2022-09-21] VITALS (21 sets, daily range): BP systolic 128–186; BP diastolic 68–114
[2022-09-21 07:02] LABS: HEMATOCRIT 44.6 % (39.0-50.0); HEMOGLOBIN 14.4 g/dl (14.0-18.0); IMMATURE GRANULOCYTES 0.1 % (0.0-5.0); MEAN CELL VOLUME 78.8 fL CALC (80.0-100.0); MEAN CORPUSCULAR HGB 25.4 pG CALC (26.0-32.0); MEAN CORPUSCULAR HGB CONC 32.3 g/dL CAL (32.0-36.0); NEUT# 4.12 thou/uL (1.82-7.42); RED BLOOD COUNT 5.66 mill/uL (4.70-6.10); RED CELL DISTRI WIDTH 17.4 % (11.5-15.5)
[2022-09-21 07:04] LABS: URINE BILIRUBIN - DIPSTICK NEGATIVE (NEGATIVE); URINE BLOOD DIPSTICK NEGATIVE (NEGATIVE); URINE COLOR YELLOW; URINE GLUCOSE - DIPSTICK NEGATIVE (NEGATIVE); URINE KETONE NEGATIVE (NEGATIVE); URINE LEUK ESTERASE NEGATIVE (NEGATIVE); URINE PROTEIN - DIPSTICK 100 mg/dL (NEG-TRACE); URINE SPECIFIC GRAVITY 1.025; URINE UROBILINOGEN - DIPSTICK 0.2 E.U./dL (0.2)
[2022-09-21 07:05] LABS: URINE NITRITE - DIPSTICK NEGATIVE (Negative)
[2022-09-21 07:10] LABS: ALBUMIN 4.7 g/dL (3.2-5.0); ALKALINE PHOSPHATASE 127 u/l (38-126); ANION GAP 14 (6-22 (CALC)); BUN 6 mg/dL (9-20); BUN/CREATININE RATIO 10 (12-20 (CALC)); CARBON DIOXIDE 24 mmol/l (22-30); CHLORIDE 104 mmol/l (95-108); CREATININE 0.6 mg/dL (0.7-1.3); GFR FOR AFR.AMER. > 60 ML/MIN (>=60 (CALC)); GFR OTHER RACES > 60 ML/MIN (>=60 (CALC)); LIPASE 592 u/l (23-300); POTASSIUM 4.1 mmol/l (3.5-5.1); SGOT/AST 32 u/l (17-59); SODIUM 138 mmol/l (137-146); TOTAL PROTEIN 8.1 g/dL (6.3-8.2)
[2022-09-21 07:13] LABS: BILIRUBIN, TOTAL 1.4 mg/dL (0.0-1.4)
[2022-09-21 07:21] LABS: URINE SQUAMOUS EPITHELIAL CELL FEW EPI/hpf (0-FEW)
[2022-09-21 07:22] LABS: MYOGLOBIN 16 ng/mL (0 - 121)
[2022-09-22 04:50] VITALS: BP 160/96
[2022-09-22 05:44] LABS: AMYLASE 135 u/l (30-110); ANION GAP 10 (6-22 (CALC)); BUN 4 mg/dL (9-20); BUN/CREATININE RATIO 7 (12-20 (CALC)); CARBON DIOXIDE 25 mmol/l (22-30); CHLORIDE 105 mmol/l (95-108); CREATININE 0.6 mg/dL (0.7-1.3); GFR FOR AFR.AMER. > 60 ML/MIN (>=60 (CALC)); GFR OTHER RACES > 60 ML/MIN (>=60 (CALC)); LIPASE 767 u/l (23-300); MAGNESIUM 1.8 mg/dL (1.6-2.3); POTASSIUM 4.2 mmol/l (3.5-5.1); SODIUM 136 mmol/l (137-146)
[2022-09-22 06:39] VITALS: BP 149/91
[2022-09-22 09:09] VITALS: BP 153/94
[2022-09-22 09:10] VITALS: BP 153/94
[2022-09-22] MEDS ORDERED: LORTAB 5/3255 MG PO (09:47)
== END 2022-09-22 12:10 | disposition home or self-care (01) | DRG 440 ==
LOC: ED 06:04 → ED-I 09:50 → ED 10:11 → MS2 10:12
PROVIDERS: Family Medicine; ADMIT Internal Medicine; ATTEND Internal Medicine
DX: K85.20 Alcohol induced acute pancreatitis without necrosis or infection (principal); I10 Essential (primary) hypertension; F10.10 Alcohol abuse, uncomplicated; F17.200 Nicotine dependence, unspecified, uncomplicated
CPT/HCPCS: J1650; Q9967

== ENCOUNTER 2022-11-13 14:32 | Emergency (ER) | payer OTHER ==
[~2022-11-13] VITALS: Ht 188 cm; Wt 109.0 kg
[~2022-11-13 14:32] MED LIST changes: +LORTAB 5/3255 MG PO
[2022-11-13 15:00] VITALS: BP 144/93
[2022-11-13 15:08] LABS: BASO% 0.4 % (0-3); EOS% 1.2 % (0-8); IMMATURE GRANULOCYTES 0.1 % (0.0-5.0); MEAN CELL VOLUME 76.7 fL CALC (80.0-100.0); MEAN CORPUSCULAR HGB 25.2 pG CALC (26.0-32.0); MEAN CORPUSCULAR HGB CONC 32.9 g/dL CAL (32.0-36.0); MONO% 7.2 % (2-13); NEUT# 5.42 thou/uL (1.82-7.42); NEUT% 66.1 % (42-76); RED BLOOD COUNT 4.8 mill/uL (4.70-6.10); RED CELL DISTRI WIDTH 14.8 % (11.5-15.5)
[2022-11-13 15:13] LABS: HEMATOCRIT 36.8 % (39.0-50.0); HEMOGLOBIN 12.1 g/dl (14.0-18.0)
[2022-11-13 15:15] VITALS: BP 177/107
[2022-11-13 15:41] LABS: ALBUMIN 4.7 g/dL (3.2-5.0); ALKALINE PHOSPHATASE 120 u/l (38-126); ANION GAP 10 (6-22 (CALC)); BUN 6 mg/dL (9-20); BUN/CREATININE RATIO 9 (12-20 (CALC)); CARBON DIOXIDE 26 mmol/l (22-30); CHLORIDE 106 mmol/l (95-108); CREATININE 0.7 mg/dL (0.7-1.3); GFR FOR AFR.AMER. > 60 ML/MIN (>=60 (CALC)); GFR OTHER RACES > 60 ML/MIN (>=60 (CALC)); LIPASE 962 u/l (23-300); SGOT/AST 30 u/l (17-59); SODIUM 138 mmol/l (137-146); TOTAL PROTEIN 7.7 g/dL (6.3-8.2)
[2022-11-13 15:43] LABS: BILIRUBIN, TOTAL 0.8 mg/dL (0.0-1.4)
[2022-11-13 15:45] LABS: URINE BILIRUBIN - DIPSTICK NEGATIVE (NEGATIVE); URINE BLOOD DIPSTICK NEGATIVE (NEGATIVE); URINE COLOR YELLOW; URINE GLUCOSE - DIPSTICK NEGATIVE (NEGATIVE); URINE KETONE NEGATIVE (NEGATIVE); URINE LEUK ESTERASE NEGATIVE (NEGATIVE); URINE PROTEIN - DIPSTICK NEGATIVE (NEG-TRACE); URINE SPECIFIC GRAVITY 1.015; URINE UROBILINOGEN - DIPSTICK 0.2 E.U./dL (0.2)
[2022-11-13 15:46] LABS: URINE NITRITE - DIPSTICK NEGATIVE (Negative)
[2022-11-13] MEDS ORDERED: HYDROCO/APAP1 TA9 PO (17:17)
[2022-11-13 17:22] VITALS: BP 150/80
== END 2022-11-13 17:32 | disposition home or self-care (01) | DRG 440 ==
LOC: ED 14:32
PROVIDERS: Family Medicine
DX: K85.20 Alcohol induced acute pancreatitis without necrosis or infection (principal); I10 Essential (primary) hypertension

== ENCOUNTER 2022-11-21 22:57 | Emergency (ER) | payer OTHER ==
[~2022-11-21] VITALS: Ht 188 cm; Wt 108.0 kg
[2022-11-22 00:14] LABS: BASO% 0.3 % (0-3); EOS% 0.9 % (0-8); HEMATOCRIT 37.9 % (39.0-50.0); HEMOGLOBIN 12.7 g/dl (14.0-18.0); IMMATURE GRANULOCYTES 0.2 % (0.0-5.0); LYMPH% 30.7 % (15-41); MEAN CELL VOLUME 76.9 fL CALC (80.0-100.0); MEAN CORPUSCULAR HGB 25.8 pG CALC (26.0-32.0); MEAN CORPUSCULAR HGB CONC 33.5 g/dL CAL (32.0-36.0); MONO% 8.1 % (2-13); NEUT# 5.57 thou/uL (1.82-7.42); NEUT% 59.8 % (42-76); RED BLOOD COUNT 4.93 mill/uL (4.70-6.10); RED CELL DISTRI WIDTH 15.5 % (11.5-15.5)
[2022-11-22 00:25] LABS: ALKALINE PHOSPHATASE 122 u/l (38-126); BILIRUBIN, TOTAL 1.1 mg/dL (0.0-1.4); BUN 8 mg/dL (9-20); BUN/CREATININE RATIO 11 (12-20 (CALC)); CARBON DIOXIDE 25 mmol/l (22-30); CREATININE 0.7 mg/dL (0.7-1.3); GFR FOR AFR.AMER. > 60 ML/MIN (>=60 (CALC)); GFR OTHER RACES > 60 ML/MIN (>=60 (CALC)); LIPASE 555 u/l (23-300); POTASSIUM 3.7 mmol/l (3.5-5.1); SGOT/AST 29 u/l (17-59); SODIUM 137 mmol/l (137-146)
[2022-11-22 00:26] LABS: ALBUMIN 4.7 g/dL (3.2-5.0); TOTAL PROTEIN 7.5 g/dL (6.3-8.2)
[2022-11-22 00:28] LABS: ANION GAP 12 (6-22 (CALC)); CHLORIDE 104 mmol/l (95-108)
[2022-11-22] MEDS ORDERED: PROMETHAZINE HY25 M1 PO (01:20)
[2022-11-22] MEDS ORDERED: TRAMADOL HCL50 MG PO (01:20)
[2022-11-22 03:24] VITALS: BP 148/79
== END 2022-11-22 03:24 | disposition home or self-care (01) | DRG 440 ==
LOC: ED 22:57
PROVIDERS: Family Medicine
DX: K85.90 Acute pancreatitis without necrosis or infection, unspecified (principal); F10.90 Alcohol use, unspecified, uncomplicated

== ENCOUNTER 2022-11-22 20:09 | Emergency (ER) | payer OTHER ==
[~2022-11-22] VITALS: Ht 188 cm; Wt 109.0 kg
[2022-11-22] VITALS (12 sets, daily range): BP systolic 151–172; BP diastolic 88–103
[2022-11-22 22:00] LABS: BASO% 0.6 % (0-3); EOS% 0.9 % (0-8); HEMATOCRIT 35.5 % (39.0-50.0); HEMOGLOBIN 11.8 g/dl (14.0-18.0); LYMPH% 22.6 % (15-41); MEAN CELL VOLUME 77.3 fL CALC (80.0-100.0); MEAN CORPUSCULAR HGB 25.7 pG CALC (26.0-32.0); MEAN CORPUSCULAR HGB CONC 33.2 g/dL CAL (32.0-36.0); MONO% 5.7 % (2-13); NEUT# 4.7 thou/uL (1.82-7.42); NEUT% 70.2 % (42-76); RED BLOOD COUNT 4.59 mill/uL (4.70-6.10); RED CELL DISTRI WIDTH 15.2 % (11.5-15.5)
[2022-11-22 22:11] LABS: ALBUMIN 4.2 g/dL (3.2-5.0); ALKALINE PHOSPHATASE 90 u/l (38-126); AMYLASE 89 u/l (30-110); ANION GAP 10 (6-22 (CALC)); BUN 4 mg/dL (9-20); BUN/CREATININE RATIO 7 (12-20 (CALC)); CARBON DIOXIDE 24 mmol/l (22-30); CHLORIDE 105 mmol/l (95-108); CREATININE 0.7 mg/dL (0.7-1.3); GFR FOR AFR.AMER. > 60 ML/MIN (>=60 (CALC)); GFR OTHER RACES > 60 ML/MIN (>=60 (CALC)); LIPASE 251 u/l (23-300); POTASSIUM 3.8 mmol/l (3.5-5.1); SGOT/AST 26 u/l (17-59); SODIUM 135 mmol/l (137-146); TOTAL PROTEIN 7.2 g/dL (6.3-8.2)
[2022-11-23 00:01] VITALS: BP 143/77
[2022-11-23 00:16] VITALS: BP 142/87
[2022-11-23 00:32] VITALS: BP 142/87
== END 2022-11-23 01:25 | disposition home or self-care (01) | DRG 440 ==
LOC: ED 20:09
PROVIDERS: Emergency Medicine
DX: K85.90 Acute pancreatitis without necrosis or infection, unspecified (principal); K86.1 Other chronic pancreatitis; F10.10 Alcohol abuse, uncomplicated
CPT/HCPCS: Q9967

== ENCOUNTER 2022-11-27 06:02 | Emergency (ER) | payer OTHER ==
[~2022-11-27] VITALS: Ht 188 cm; Wt 112.7 kg
[2022-11-27 06:24] VITALS: BP 156/114
[2022-11-27 06:48] LABS: BASO% 0.7 % (0-3); EOS% 1.8 % (0-8); HEMATOCRIT 40.1 % (39.0-50.0); HEMOGLOBIN 13.3 g/dl (14.0-18.0); IMMATURE GRANULOCYTES 0.1 % (0.0-5.0); LYMPH% 27.1 % (15-41); MEAN CELL VOLUME 77.3 fL CALC (80.0-100.0); MEAN CORPUSCULAR HGB 25.6 pG CALC (26.0-32.0); MEAN CORPUSCULAR HGB CONC 33.2 g/dL CAL (32.0-36.0); MONO% 8.6 % (2-13); NEUT# 4.58 thou/uL (1.82-7.42); NEUT% 61.7 % (42-76); RED BLOOD COUNT 5.19 mill/uL (4.70-6.10)
[2022-11-27 07:01] VITALS: BP 161/97
[2022-11-27 07:16] VITALS: BP 159/94
[2022-11-27 07:29] LABS: URINE BILIRUBIN - DIPSTICK NEGATIVE (NEGATIVE); URINE BLOOD DIPSTICK NEGATIVE (NEGATIVE); URINE COLOR YELLOW; URINE GLUCOSE - DIPSTICK NEGATIVE (NEGATIVE); URINE KETONE NEGATIVE (NEGATIVE); URINE LEUK ESTERASE NEGATIVE (NEGATIVE); URINE PH 6.5 (4.5-8.0); URINE PROTEIN - DIPSTICK NEGATIVE (NEG-TRACE); URINE SPECIFIC GRAVITY 1.025; URINE UROBILINOGEN - DIPSTICK 0.2 E.U./dL (0.2)
[2022-11-27 07:31] LABS: URINE NITRITE - DIPSTICK NEGATIVE (Negative)
[2022-11-27 07:43] LABS: ALBUMIN 4.6 g/dL (3.2-5.0); ALKALINE PHOSPHATASE 110 u/l (38-126); ANION GAP 11 (6-22 (CALC)); BUN 8 mg/dL (9-20); BUN/CREATININE RATIO 11 (12-20 (CALC)); CARBON DIOXIDE 27 mmol/l (22-30); CHLORIDE 104 mmol/l (95-108); CREATININE 0.7 mg/dL (0.7-1.3); GFR FOR AFR.AMER. > 60 ML/MIN (>=60 (CALC)); GFR OTHER RACES > 60 ML/MIN (>=60 (CALC)); LIPASE 374 u/l (23-300); POTASSIUM 3.8 mmol/l (3.5-5.1); SGOT/AST 37 u/l (17-59); SODIUM 138 mmol/l (137-146); TOTAL PROTEIN 7.7 g/dL (6.3-8.2)
[2022-11-27 07:44] LABS: BILIRUBIN, TOTAL 0.5 mg/dL (0.0-1.4)
[2022-11-27] MEDS ORDERED: CELEBREX100 M1 PO (09:27)
[2022-11-27 09:48] VITALS: BP 159/94
== END 2022-11-27 09:49 | disposition still patient (30) | DRG 204 ==
LOC: ED 06:02
PROVIDERS: Family Medicine
DX: R07.81 Pleurodynia (principal); R10.11 Right upper quadrant pain

== ENCOUNTER 2022-12-16 06:55 | Emergency (ER) | payer OTHER ==
[~2022-12-16] VITALS: Ht 188 cm; Wt 113.0 kg
[~2022-12-16 06:55] MED LIST changes: +CELEBREX100 M1 PO
[2022-12-16 07:54] LABS: ALBUMIN 4.9 g/dL (3.2-5.0); ALKALINE PHOSPHATASE 103 u/l (38-126); ANION GAP 10 (6-22 (CALC)); BUN 7 mg/dL (9-20); BUN/CREATININE RATIO 10 (12-20 (CALC)); CARBON DIOXIDE 26 mmol/l (22-30); CHLORIDE 104 mmol/l (95-108); CREATININE 0.7 mg/dL (0.7-1.3); GFR FOR AFR.AMER. > 60 ML/MIN (>=60 (CALC)); GFR OTHER RACES > 60 ML/MIN (>=60 (CALC)); LIPASE 1680 u/l (23-300); POTASSIUM 3.9 mmol/l (3.5-5.1); SGOT/AST 41 u/l (17-59); SODIUM 135 mmol/l (137-146); TOTAL PROTEIN 8.2 g/dL (6.3-8.2)
[2022-12-16 08:13] LABS: BILIRUBIN, TOTAL 1.2 mg/dL (0.2-1.3)
[2022-12-16 08:28] LABS: BASO% 0.5 % (0-3); EOS% 1.3 % (0-8); HEMATOCRIT 40.3 % (39.0-50.0); HEMOGLOBIN 12.9 g/dl (14.0-18.0); IMMATURE GRANULOCYTES 0.1 % (0.0-5.0); LYMPH% 23.9 % (15-41); MEAN CELL VOLUME 77.4 fL CALC (80.0-100.0); MEAN CORPUSCULAR HGB 24.8 pG CALC (26.0-32.0); MONO% 6.9 % (2-13); NEUT# 5.24 thou/uL (1.82-7.42); NEUT% 67.3 % (42-76); RED BLOOD COUNT 5.21 mill/uL (4.70-6.10); RED CELL DISTRI WIDTH 15.9 % (11.5-15.5)
[2022-12-16] MEDS ORDERED: ZOFRAN4 MG/TAB PO (11:17)
[2022-12-16 11:20] VITALS: BP 157/85
== END 2022-12-16 11:46 | disposition home or self-care (01) | DRG 392 ==
LOC: ED 06:55
PROVIDERS: Emergency Medicine
PROC: BW21YZZ Computerized Tomography (CT Scan) of Abdomen and Pelvis using Other Contrast (ICD-10-PCS; principal; 2022-12-16)
DX: R10.11 Right upper quadrant pain (principal); F17.210 Nicotine dependence, cigarettes, uncomplicated; F10.10 Alcohol abuse, uncomplicated; I10 Essential (primary) hypertension

== ENCOUNTER 2022-12-16 20:41 | Inpatient (IN) | payer OTHER ==
[~2022-12-16] VITALS: Ht 188 cm; Wt 114.3 kg
[2022-12-16 21:49] LABS: BASO% 0.2 % (0-3); EOS% 0.1 % (0-8); HEMATOCRIT 40.5 % (39.0-50.0); HEMOGLOBIN 13.1 g/dl (14.0-18.0); IMMATURE GRANULOCYTES 0.2 % (0.0-5.0); MEAN CELL VOLUME 76.6 fL CALC (80.0-100.0); MEAN CORPUSCULAR HGB 24.8 pG CALC (26.0-32.0); MEAN CORPUSCULAR HGB CONC 32.3 g/dL CAL (32.0-36.0); MONO% 6.3 % (2-13); NEUT# 14.35 thou/uL (1.82-7.42); NEUT% 84.2 % (42-76); RED BLOOD COUNT 5.29 mill/uL (4.70-6.10); RED CELL DISTRI WIDTH 15.8 % (11.5-15.5)
--- NOTE | 2022-12-16 21:54 | NUR ---
PT TO ROOM 15 FOR TRIAGE.
[2022-12-16 22:00] LABS: ALBUMIN 4.8 g/dL (3.2-5.0); ALKALINE PHOSPHATASE 127 u/l (38-126); AMYLASE 341 u/l (30-110); ANION GAP 15 (6-22 (CALC)); BUN 6 mg/dL (9-20); BUN/CREATININE RATIO 9 (12-20 (CALC)); CARBON DIOXIDE 22 mmol/l (22-30); CHLORIDE 102 mmol/l (95-108); CREATININE 0.7 mg/dL (0.7-1.3); GFR FOR AFR.AMER. > 60 ML/MIN (>=60 (CALC)); GFR OTHER RACES > 60 ML/MIN (>=60 (CALC)); POTASSIUM 3.7 mmol/l (3.5-5.1); SGOT/AST 34 u/l (17-59); SODIUM 135 mmol/l (137-146); TOTAL PROTEIN 8.2 g/dL (6.3-8.2)
[2022-12-16 22:18] LABS: BILIRUBIN, TOTAL 1.9 mg/dL (0.2-1.3); LIPASE 4454 u/l (23-300)
--- NOTE | 2022-12-16 23:30 | NUR ---
PT STILL HAVING DISCOMFORT BUT HAS LESSENED. IV FLUIDS INFUSING.
--- NOTE | 2022-12-17 00:30 | NUR ---
RESTING MORE COMFORTABLY. IV FLUIDS INFUSING.
--- NOTE | 2022-12-17 02:00 | NUR ---
PT TRANSFERRED TO ROOM 275 AND REPORT GIVEN TO SPARKLE NORTH.
[2022-12-17 02:01] VITALS: BP 179/94
--- NOTE | 2022-12-17 02:30 | NUR ---
RECEIVED PATIENT FROM ER, ALERT AND ORIENTED X 4. AMBULATED WITHOUT ASSISTANCE. VOMITTED SMALL AMOUNT OF GASTRIC SECRETION. ZOFRAN 4 MG I.V GIVEN.
[2022-12-17 04:07] VITALS: BP 179/96
[2022-12-17 07:00] VITALS: BP 170/80
--- NOTE | 2022-12-17 12:08 | NUR ---
PATIENT STATED FEELING BETTER. RESTING. STILL NPO WITH IV FLUIDS GOING. WILL CONTINUE TO MONITOR.
--- NOTE | 2022-12-17 13:30 | NUR ---
PATIENT REPORTED PAIN 8/10 GAVE PRN MED. PATIENT VOMITED BILE WITH GREEN SUBSTANCE. ASKED PATIENT IF HE WAS STILL NAUSEATED HE STATED NO. WILL WILL CONTINUE TO MONITOR.
[2022-12-17 16:00] VITALS: BP 189/90
[2022-12-17 17:17] VITALS: BP 184/102
--- NOTE | 2022-12-17 18:03 | NUR ---
PATIENT HAD AN EPISODE OF VOMITING BILE GREEN WITH AN UNDIGESTED PILL GIVEN TO HIM AT 1000AM THIS MORNING. PATIENT REPORTS FEELING BETTER OF BUT ABD PAIN IS STILL HIGH 8/10 REFUSING PAIN MED TILL AFTER SHOWER. SIGNIFICANT OTHER IN ROOM STATING SHE WILL HELP HIM SHOW TO PREVENT FALL. MONITORING BP SINCE GIVEN PRN APRISOLINE CURRENT SYSTOLIC BLOOD PRESSURE WENT FROM 189 TO 163. WILL CONTINUE TO MONITOR.
[2022-12-17 19:27] VITALS: BP 164/92
--- NOTE | 2022-12-17 20:00 | NUR ---
PATIENT LAYING IN BED RESTING, ABLE TO MAKE NEEDS KNOWN, CALL LIGHT WITHIN REACH, NO S/S OF DISTRESS
--- NOTE | 2022-12-18 | NUR ---
PATIENT RESTING IN BED, NO S/S OF DISTRESS
[2022-12-18 00:01] VITALS: BP 133/78
[2022-12-18 03:23] VITALS: BP 148/86
--- NOTE | 2022-12-18 04:00 | NUR ---
PATIENT RESTING IN BED, NO S/S OF DISTRESS
[2022-12-18 05:13] LABS: BASO% 0.1 % (0-3); EOS% 0.2 % (0-8); HEMATOCRIT 40.2 % (39.0-50.0); HEMOGLOBIN 12.8 g/dl (14.0-18.0); IMMATURE GRANULOCYTES 0.2 % (0.0-5.0); LYMPH% 10.4 % (15-41); MEAN CELL VOLUME 79.6 fL CALC (80.0-100.0); MEAN CORPUSCULAR HGB 25.3 pG CALC (26.0-32.0); MEAN CORPUSCULAR HGB CONC 31.8 g/dL CAL (32.0-36.0); MONO% 7.8 % (2-13); NEUT# 9.95 thou/uL (1.82-7.42); NEUT% 81.3 % (42-76); RED BLOOD COUNT 5.05 mill/uL (4.70-6.10); RED CELL DISTRI WIDTH 16.5 % (11.5-15.5)
[2022-12-18 05:40] LABS: ALKALINE PHOSPHATASE 86 u/l (38-126); AMYLASE 87 u/l (30-110); ANION GAP 13 (6-22 (CALC)); BILIRUBIN, TOTAL 1.7 mg/dL (0.2-1.3); BUN 4 mg/dL (9-20); BUN/CREATININE RATIO 8 (12-20 (CALC)); CARBON DIOXIDE 21 mmol/l (22-30); CHLORIDE 104 mmol/l (95-108); CREATININE 0.6 mg/dL (0.7-1.3); GFR FOR AFR.AMER. > 60 ML/MIN (>=60 (CALC)); GFR OTHER RACES > 60 ML/MIN (>=60 (CALC)); LIPASE 344 u/l (23-300); MAGNESIUM 2.1 mg/dL (1.6-2.3); POTASSIUM 3.8 mmol/l (3.5-5.1); SGOT/AST 22 u/l (17-59); SODIUM 134 mmol/l (137-146); TOTAL PROTEIN 6.6 g/dL (6.3-8.2)
[2022-12-18 05:48] LABS: ALBUMIN 3.8 g/dL (3.2-5.0)
[2022-12-18 06:25] VITALS: BP 144/71
[2022-12-18 06:48] VITALS: BP 144/71
[2022-12-18 08:29] VITALS: BP 144/71
[2022-12-18] MEDS ORDERED: PANTOPRAZOLE SO40 M1 PO (10:53)
--- NOTE | 2022-12-18 12:29 | NUR ---
PATIENT TOLERATED LUNCH WIHTOUT ANY ABD PAIN. PATIENT IS WAITING ON RIDE. PIV AND HEART MONITOR REMOVED. REPORTS NO PAIN.
--- NOTE | 2022-12-18 12:52 | NUR ---
PATIENT DICHARGE HOME WITH SPOUSE. DISCHARGE INSTRUCTIONS PROVIDED. ALL QUESTIOHNS ANSWERED.
== END 2022-12-18 12:52 | disposition home or self-care (01) | DRG 440 ==
LOC: ED 20:41 → ED-I 21:00 → ED 21:00 → ED-I 23:24 → ED 23:38 → MS2 23:39
PROVIDERS: Emergency Medicine; Internal Medicine; ADMIT Internal Medicine; ATTEND Internal Medicine
DX: K85.20 Alcohol induced acute pancreatitis without necrosis or infection (principal); K86.0 Alcohol-induced chronic pancreatitis; I10 Essential (primary) hypertension; F17.210 Nicotine dependence, cigarettes, uncomplicated; R10.9 Unspecified abdominal pain; R10.11 Right upper quadrant pain; F10.10 Alcohol abuse, uncomplicated
CPT/HCPCS: Q9967; S0164

== ENCOUNTER 2023-01-09 06:17 | Emergency (ER) | payer OTHER ==
[2023-01-09] VITALS (9 sets, daily range): BP systolic 136–182; BP diastolic 74–113
[~2023-01-09] VITALS: Ht 188 cm; Wt 111.0 kg
[~2023-01-09 06:17] MED LIST changes: +PANTOPRAZOLE SO40 M1 PO
[2023-01-09 07:04] LABS: BASO% 0.4 % (0-3); EOS% 0.8 % (0-8); HEMATOCRIT 39.8 % (39.0-50.0); HEMOGLOBIN 12.7 g/dl (14.0-18.0); IMMATURE GRANULOCYTES 0.2 % (0.0-5.0); LYMPH% 14.6 % (15-41); MEAN CORPUSCULAR HGB 25.2 pG CALC (26.0-32.0); MEAN CORPUSCULAR HGB CONC 31.9 g/dL CAL (32.0-36.0); MONO% 7.3 % (2-13); NEUT# 8.05 thou/uL (1.82-7.42); NEUT% 76.7 % (42-76); RED BLOOD COUNT 5.04 mill/uL (4.70-6.10); RED CELL DISTRI WIDTH 17.8 % (11.5-15.5)
[2023-01-09 07:38] LABS: ALBUMIN 4.4 g/dL (3.2-5.0); ALKALINE PHOSPHATASE 94 u/l (38-126); ANION GAP 10 (6-22 (CALC)); BILIRUBIN, TOTAL 1.7 mg/dL (0.2-1.3); BUN 6 mg/dL (9-20); BUN/CREATININE RATIO 10 (12-20 (CALC)); CARBON DIOXIDE 22 mmol/l (22-30); CHLORIDE 106 mmol/l (95-108); CREATININE 0.6 mg/dL (0.7-1.3); GFR FOR AFR.AMER. > 60 ML/MIN (>=60 (CALC)); GFR OTHER RACES > 60 ML/MIN (>=60 (CALC)); LIPASE 1303 u/l (23-300); POTASSIUM 3.5 mmol/l (3.5-5.1); SGOT/AST 28 u/l (17-59); SODIUM 134 mmol/l (137-146); TOTAL PROTEIN 7.1 g/dL (6.3-8.2)
== END 2023-01-09 11:43 | disposition home or self-care (01) | DRG 392 ==
LOC: ED 06:17
PROVIDERS: Family Medicine
DX: R10.13 Epigastric pain (principal); I10 Essential (primary) hypertension; F17.200 Nicotine dependence, unspecified, uncomplicated
CPT/HCPCS: Q9967; S0164

== ENCOUNTER 2023-01-24 10:37 | Emergency (ER) | payer OTHER ==
[~2023-01-24] VITALS: Ht 188 cm; Wt 113.4 kg
[2023-01-24 11:06] LABS: BASO% 0.6 % (0-3); EOS% 1.9 % (0-8); HEMATOCRIT 43.6 % (39.0-50.0); HEMOGLOBIN 13.9 g/dl (14.0-18.0); IMMATURE GRANULOCYTES 0.2 % (0.0-5.0); MEAN CELL VOLUME 79.9 fL CALC (80.0-100.0); MEAN CORPUSCULAR HGB 25.5 pG CALC (26.0-32.0); MEAN CORPUSCULAR HGB CONC 31.9 g/dL CAL (32.0-36.0); MONO% 8.5 % (2-13); NEUT# 6.1 thou/uL (1.82-7.42); NEUT% 67.8 % (42-76); RED BLOOD COUNT 5.46 mill/uL (4.70-6.10)
[2023-01-24 11:18] LABS: ALBUMIN 4.7 g/dL (3.2-5.0); ALKALINE PHOSPHATASE 119 u/l (38-126); ANION GAP 11 (6-22 (CALC)); BUN 12 mg/dL (9-20); BUN/CREATININE RATIO 18 (12-20 (CALC)); CARBON DIOXIDE 26 mmol/l (22-30); CHLORIDE 104 mmol/l (95-108); CREATININE 0.7 mg/dL (0.7-1.3); GFR FOR AFR.AMER. > 60 ML/MIN (>=60 (CALC)); GFR OTHER RACES > 60 ML/MIN (>=60 (CALC)); LIPASE 717 u/l (23-300); POTASSIUM 3.9 mmol/l (3.5-5.1); SGOT/AST 43 u/l (17-59); SODIUM 138 mmol/l (137-146); TOTAL PROTEIN 7.9 g/dL (6.3-8.2)
[2023-01-24] MEDS ORDERED: ZOFRAN4 MG/TAB PO (12:54)
[2023-01-24] MEDS ORDERED: HYDROCO/APAP1 TA9 PO (12:54)
[2023-01-24 15:00] VITALS: BP 163/104
[2023-01-25] MEDS ORDERED: LISINOPRIL10 MG PO (09:26)
== END 2023-01-24 15:10 | disposition home or self-care (01) | DRG 440 ==
LOC: ED 10:37
PROVIDERS: Family Medicine
DX: K85.90 Acute pancreatitis without necrosis or infection, unspecified (principal); R10.9 Unspecified abdominal pain; I10 Essential (primary) hypertension

== ENCOUNTER 2023-01-24 22:55 | Inpatient (IN) | payer OTHER ==
[~2023-01-24] VITALS: Ht 188 cm; Wt 112.5 kg
[2023-01-24 23:12] VITALS: BP 190/107
[2023-01-24 23:15] VITALS: BP 196/109
[2023-01-24 23:31] VITALS: BP 198/125
[2023-01-25] VITALS (29 sets, daily range): BP systolic 141–194; BP diastolic 82–104
[2023-01-25 00:36] LABS: BASO% 0.3 % (0-3); EOS% 0.4 % (0-8); HEMATOCRIT 42.3 % (39.0-50.0); HEMOGLOBIN 13.3 g/dl (14.0-18.0); IMMATURE GRANULOCYTES 0.2 % (0.0-5.0); LYMPH% 11.2 % (15-41); MEAN CELL VOLUME 81.5 fL CALC (80.0-100.0); MEAN CORPUSCULAR HGB 25.6 pG CALC (26.0-32.0); MEAN CORPUSCULAR HGB CONC 31.4 g/dL CAL (32.0-36.0); MONO% 4.6 % (2-13); NEUT# 9.45 thou/uL (1.82-7.42); NEUT% 83.3 % (42-76); RED BLOOD COUNT 5.19 mill/uL (4.70-6.10); RED CELL DISTRI WIDTH 18.1 % (11.5-15.5)
[2023-01-25 01:01] LABS: ALBUMIN 4.7 g/dL (3.2-5.0); ALKALINE PHOSPHATASE 115 u/l (38-126); AMYLASE 287 u/l (30-110); ANION GAP 15 (6-22 (CALC)); BILIRUBIN, TOTAL 1.4 mg/dL (0.2-1.3); BUN 6 mg/dL (9-20); BUN/CREATININE RATIO 11 (12-20 (CALC)); CARBON DIOXIDE 22 mmol/l (22-30); CHLORIDE 103 mmol/l (95-108); CREATININE 0.6 mg/dL (0.7-1.3); ETHYL ALCOHOL 0 mg/dl (0-30); GFR FOR AFR.AMER. > 60 ML/MIN (>=60 (CALC)); GFR OTHER RACES > 60 ML/MIN (>=60 (CALC)); SGOT/AST 29 u/l (17-59); SODIUM 136 mmol/l (137-146); TOTAL PROTEIN 7.7 g/dL (6.3-8.2)
[2023-01-25 01:09] LABS: LIPASE 3571 u/l (23-300)
[2023-01-25 05:05] LABS: URINE BILIRUBIN - DIPSTICK NEGATIVE (NEGATIVE); URINE BLOOD DIPSTICK TRACE-LYSED (NEGATIVE); URINE COLOR YELLOW; URINE GLUCOSE - DIPSTICK NEGATIVE (NEGATIVE); URINE KETONE 40 mg/dL (NEGATIVE); URINE LEUK ESTERASE NEGATIVE (NEGATIVE); URINE PH 6.5 (4.5-8.0); URINE PROTEIN - DIPSTICK TRACE mg/dL (NEG-TRACE); URINE UROBILINOGEN - DIPSTICK 0.2 E.U./dL (0.2)
[2023-01-25 05:06] LABS: URINE NITRITE - DIPSTICK NEGATIVE (Negative)
[2023-01-25] MEDS ORDERED: LISINOPRIL10 MG PO (09:26)
[2023-01-26 03:10] VITALS: BP 179/95
[2023-01-26 04:25] LABS: BASO% 0.4 % (0-3); EOS% 0.7 % (0-8); HEMATOCRIT 39.8 % (39.0-50.0); HEMOGLOBIN 12.9 g/dl (14.0-18.0); IMMATURE GRANULOCYTES 0.1 % (0.0-5.0); LYMPH% 24.4 % (15-41); MEAN CELL VOLUME 79.8 fL CALC (80.0-100.0); MEAN CORPUSCULAR HGB 25.9 pG CALC (26.0-32.0); MEAN CORPUSCULAR HGB CONC 32.4 g/dL CAL (32.0-36.0); MONO% 10.5 % (2-13); NEUT# 5.18 thou/uL (1.82-7.42); NEUT% 63.9 % (42-76); RED BLOOD COUNT 4.99 mill/uL (4.70-6.10); RED CELL DISTRI WIDTH 17.4 % (11.5-15.5)
[2023-01-26 04:40] LABS: ALBUMIN 4.1 g/dL (3.2-5.0); ALKALINE PHOSPHATASE 81 u/l (38-126); AMYLASE 125 u/l (30-110); BILIRUBIN, TOTAL 1.2 mg/dL (0.2-1.3); BUN 3 mg/dL (9-20); BUN/CREATININE RATIO 5 (12-20 (CALC)); CHLORIDE 101 mmol/l (95-108); CREATININE 0.6 mg/dL (0.7-1.3); GFR FOR AFR.AMER. > 60 ML/MIN (>=60 (CALC)); GFR OTHER RACES > 60 ML/MIN (>=60 (CALC)); LIPASE 414 u/l (23-300); POTASSIUM 3.4 mmol/l (3.5-5.1); SGOT/AST 22 u/l (17-59); SODIUM 135 mmol/l (137-146); TOTAL PROTEIN 7.1 g/dL (6.3-8.2)
[2023-01-26 04:49] LABS: ANION GAP 10 (6-22 (CALC)); CARBON DIOXIDE 27 mmol/l (22-30)
[2023-01-26 05:38] VITALS: BP 150/82
[2023-01-26] MEDS ORDERED: HYDROCO/APAP1 TA9 PO (10:16)
== END 2023-01-26 11:55 | disposition home or self-care (01) | DRG 440 ==
LOC: ED 22:55 → ED-I 01-25 03:50 → ED 01-25 04:13 → MS2 01-25 04:14 → ED-I 01-25 04:14 → MS2 01-25 07:01
PROVIDERS: Emergency Medicine; Nurse Practitioner Family; ADMIT Internal Medicine; ATTEND Internal Medicine
DX: K85.90 Acute pancreatitis without necrosis or infection, unspecified (principal); I10 Essential (primary) hypertension; F17.200 Nicotine dependence, unspecified, uncomplicated
CPT/HCPCS: Q9967

== ENCOUNTER 2023-03-17 13:31 | Emergency (ER) | payer OTHER ==
[~2023-03-17] VITALS: Ht 188 cm; Wt 108.0 kg
[~2023-03-17 13:31] MED LIST changes: +LISINOPRIL10 MG PO
[2023-03-17 14:28] LABS: BASO% 0.7 % (0-3); EOS% 1.2 % (0-8); HEMATOCRIT 39.2 % (39.0-50.0); HEMOGLOBIN 12.6 g/dl (14.0-18.0); IMMATURE GRANULOCYTES 0.1 % (0.0-5.0); LYMPH% 42.3 % (15-41); MEAN CORPUSCULAR HGB 25.7 pG CALC (26.0-32.0); MEAN CORPUSCULAR HGB CONC 32.1 g/dL CAL (32.0-36.0); MONO% 9.9 % (2-13); NEUT# 3.18 thou/uL (1.82-7.42); NEUT% 45.8 % (42-76); RED BLOOD COUNT 4.9 mill/uL (4.70-6.10)
[2023-03-17 14:44] LABS: ALBUMIN 4.7 g/dL (3.2-5.0); ALKALINE PHOSPHATASE 118 u/l (38-126); AMYLASE 69 u/l (30-110); ANION GAP 13 (6-22 (CALC)); BILIRUBIN, TOTAL 1.2 mg/dL (0.2-1.3); BUN 9 mg/dL (9-20); BUN/CREATININE RATIO 13 (12-20 (CALC)); CARBON DIOXIDE 26 mmol/l (22-30); CHLORIDE 102 mmol/l (95-108); CREATININE 0.7 mg/dL (0.7-1.3); GFR FOR AFR.AMER. > 60 ML/MIN (>=60 (CALC)); GFR OTHER RACES > 60 ML/MIN (>=60 (CALC)); LIPASE 101 u/l (23-300); POTASSIUM 3.9 mmol/l (3.5-5.1); SODIUM 137 mmol/l (137-146); TOTAL PROTEIN 7.8 g/dL (6.3-8.2)
[2023-03-17 14:52] LABS: SGOT/AST 62 u/l (17-59)
[2023-03-17] MEDS ORDERED: REGLAN10 MG PO (17:57)
[2023-03-17] MEDS ORDERED: LORTAB 1010 MG PO (17:57)
[2023-03-17] MEDS ORDERED: ONDANSETRON4 MG PO (17:57)
[2023-03-17 18:26] VITALS: BP 165/97
== END 2023-03-17 20:01 | disposition home or self-care (01) | DRG 440 ==
LOC: ED 13:31
PROVIDERS: Nurse Practitioner
DX: K85.90 Acute pancreatitis without necrosis or infection, unspecified (principal)
CPT/HCPCS: Q9967; S0164

== ENCOUNTER 2023-03-24 04:22 | Emergency (ER) | payer OTHER ==
[2023-03-24] VITALS (13 sets, daily range): BP systolic 132–179; BP diastolic 83–115
[~2023-03-24] VITALS: Ht 188 cm; Wt 108.0 kg
[~2023-03-24 04:22] MED LIST changes: +LORTAB 1010 MG PO; +REGLAN10 MG PO
[2023-03-24 04:52] LABS: BASO% 0.9 % (0-3); HEMATOCRIT 40.5 % (39.0-50.0); HEMOGLOBIN 13.2 g/dl (14.0-18.0); IMMATURE GRANULOCYTES 0.7 % (0.0-5.0); LYMPH% 40.1 % (15-41); MEAN CELL VOLUME 79.4 fL CALC (80.0-100.0); MEAN CORPUSCULAR HGB 25.9 pG CALC (26.0-32.0); MEAN CORPUSCULAR HGB CONC 32.6 g/dL CAL (32.0-36.0); MONO% 10.4 % (2-13); NEUT# 2.48 thou/uL (1.82-7.42); NEUT% 45.9 % (42-76); RED BLOOD COUNT 5.1 mill/uL (4.70-6.10); RED CELL DISTRI WIDTH 14.9 % (11.5-15.5)
[2023-03-24 05:07] LABS: ALBUMIN 4.7 g/dL (3.2-5.0); ALKALINE PHOSPHATASE 91 u/l (38-126); ANION GAP 14 (6-22 (CALC)); BILIRUBIN, TOTAL 0.9 mg/dL (0.2-1.3); BUN 10 mg/dL (9-20); BUN/CREATININE RATIO 12 (12-20 (CALC)); CARBON DIOXIDE 26 mmol/l (22-30); CHLORIDE 105 mmol/l (95-108); CREATININE 0.8 mg/dL (0.7-1.3); GFR FOR AFR.AMER. > 60 ML/MIN (>=60 (CALC)); GFR OTHER RACES > 60 ML/MIN (>=60 (CALC)); LIPASE 102 u/l (23-300); POTASSIUM 4.2 mmol/l (3.5-5.1); SGOT/AST 77 u/l (17-59); SODIUM 140 mmol/l (137-146); TOTAL PROTEIN 7.9 g/dL (6.3-8.2)
[2023-03-24 05:39] LABS: URINE BILIRUBIN - DIPSTICK NEGATIVE (NEGATIVE); URINE BLOOD DIPSTICK TRACE-INTACT (NEGATIVE); URINE COLOR YELLOW; URINE GLUCOSE - DIPSTICK NEGATIVE (NEGATIVE); URINE KETONE TRACE mg/dL (NEGATIVE); URINE LEUK ESTERASE NEGATIVE (NEGATIVE); URINE PROTEIN - DIPSTICK NEGATIVE (NEG-TRACE); URINE SPECIFIC GRAVITY 1.025; URINE UROBILINOGEN - DIPSTICK 0.2 E.U./dL (0.2)
[2023-03-24 05:41] LABS: URINE NITRITE - DIPSTICK NEGATIVE (Negative)
[2023-03-24] MEDS ORDERED: HYDROCO/APAP1 TA9 PO (07:24)
[2023-03-24] MEDS ORDERED: ZOFRAN4 MG/TAB PO (07:24)
== END 2023-03-24 08:05 | disposition home or self-care (01) | DRG 440 ==
LOC: ED 04:22
PROVIDERS: Emergency Medicine
DX: K85.20 Alcohol induced acute pancreatitis without necrosis or infection (principal); K86.0 Alcohol-induced chronic pancreatitis; I10 Essential (primary) hypertension; F17.200 Nicotine dependence, unspecified, uncomplicated
CPT/HCPCS: Q9967

== ENCOUNTER 2023-03-26 13:31 | Inpatient (IN) | payer OTHER ==
[~2023-03-26] VITALS: Ht 188 cm; Wt 114.2 kg
[2023-03-26 14:27] LABS: BASO% 0.5 % (0-3); EOS% 1.1 % (0-8); HEMATOCRIT 41.5 % (39.0-50.0); HEMOGLOBIN 13.3 g/dl (14.0-18.0); IMMATURE GRANULOCYTES 0.1 % (0.0-5.0); LYMPH% 25.8 % (15-41); MEAN CELL VOLUME 80.6 fL CALC (80.0-100.0); MEAN CORPUSCULAR HGB 25.8 pG CALC (26.0-32.0); MONO% 8.3 % (2-13); NEUT# 5.13 thou/uL (1.82-7.42); NEUT% 64.2 % (42-76); RED BLOOD COUNT 5.15 mill/uL (4.70-6.10); RED CELL DISTRI WIDTH 14.8 % (11.5-15.5)
[2023-03-26 14:44] LABS: ALBUMIN 4.8 g/dL (3.2-5.0); ALKALINE PHOSPHATASE 108 u/l (38-126); AMYLASE 155 u/l (30-110); ANION GAP 12 (6-22 (CALC)); BILIRUBIN, TOTAL 1.2 mg/dL (0.2-1.3); BUN 5 mg/dL (9-20); BUN/CREATININE RATIO 6 (12-20 (CALC)); CARBON DIOXIDE 26 mmol/l (22-30); CHLORIDE 104 mmol/l (95-108); CREATININE 0.8 mg/dL (0.7-1.3); GFR FOR AFR.AMER. > 60 ML/MIN (>=60 (CALC)); GFR OTHER RACES > 60 ML/MIN (>=60 (CALC)); LIPASE 1254 u/l (23-300); POTASSIUM 3.8 mmol/l (3.5-5.1); SGOT/AST 45 u/l (17-59); SODIUM 137 mmol/l (137-146); TOTAL PROTEIN 7.6 g/dL (6.3-8.2)
[2023-03-26] MEDS ORDERED: CARAFATE1 GM PO (15:06)
[2023-03-26] MEDS ORDERED: TENORMIN25 MG PO (15:10)
[2023-03-26 18:25] VITALS: BP 174/91
[2023-03-26 19:00] VITALS: BP 228/111
[2023-03-26 19:17] VITALS: BP 228/111
[2023-03-26 19:48] LABS: URINE BILIRUBIN - DIPSTICK NEGATIVE (NEGATIVE); URINE BLOOD DIPSTICK TRACE-LYSED (NEGATIVE); URINE COLOR YELLOW; URINE GLUCOSE - DIPSTICK NEGATIVE (NEGATIVE); URINE KETONE NEGATIVE (NEGATIVE); URINE LEUK ESTERASE NEGATIVE (NEGATIVE); URINE PH 6.5 (4.5-8.0); URINE PROTEIN - DIPSTICK NEGATIVE (NEG-TRACE); URINE SPECIFIC GRAVITY <=1.005; URINE UROBILINOGEN - DIPSTICK 0.2 E.U./dL (0.2)
[2023-03-26 19:51] LABS: URINE NITRITE - DIPSTICK NEGATIVE (Negative)
[2023-03-26 20:53] VITALS: BP 153/79
[2023-03-27] VITALS (12 sets, daily range): BP systolic 143–198; BP diastolic 66–109
[2023-03-27 05:17] LABS: ALKALINE PHOSPHATASE 108 u/l (38-126); AMYLASE 173 u/l (30-110); ANION GAP 11 (6-22 (CALC)); BILIRUBIN, TOTAL 1.6 mg/dL (0.2-1.3); BUN 3 mg/dL (9-20); BUN/CREATININE RATIO 5 (12-20 (CALC)); CARBON DIOXIDE 24 mmol/l (22-30); CHLORIDE 104 mmol/l (95-108); CREATININE 0.6 mg/dL (0.7-1.3); GFR FOR AFR.AMER. > 60 ML/MIN (>=60 (CALC)); GFR OTHER RACES > 60 ML/MIN (>=60 (CALC)); LIPASE 1491 u/l (23-300); MAGNESIUM 1.8 mg/dL (1.6-2.3); POTASSIUM 3.6 mmol/l (3.5-5.1); SGOT/AST 36 u/l (17-59); SODIUM 135 mmol/l (137-146); TOTAL PROTEIN 6.6 g/dL (6.3-8.2)
[2023-03-28] VITALS (9 sets, daily range): BP systolic 145–190; BP diastolic 73–101
[2023-03-28 05:01] LABS: HEMATOCRIT 37.9 % (39.0-50.0); HEMOGLOBIN 12.1 g/dl (14.0-18.0); MEAN CELL VOLUME 80.1 fL CALC (80.0-100.0); MEAN CORPUSCULAR HGB 25.6 pG CALC (26.0-32.0); MEAN CORPUSCULAR HGB CONC 31.9 g/dL CAL (32.0-36.0); RED BLOOD COUNT 4.73 mill/uL (4.70-6.10); RED CELL DISTRI WIDTH 14.4 % (11.5-15.5)
[2023-03-28 05:12] LABS: ALBUMIN 4.2 g/dL (3.2-5.0); ALKALINE PHOSPHATASE 100 u/l (38-126); AMYLASE 82 u/l (30-110); ANION GAP 13 (6-22 (CALC)); BILIRUBIN, TOTAL 1.6 mg/dL (0.2-1.3); BUN 4 mg/dL (9-20); BUN/CREATININE RATIO 7 (12-20 (CALC)); CARBON DIOXIDE 25 mmol/l (22-30); CHLORIDE 102 mmol/l (95-108); CREATININE 0.6 mg/dL (0.7-1.3); GFR FOR AFR.AMER. > 60 ML/MIN (>=60 (CALC)); GFR OTHER RACES > 60 ML/MIN (>=60 (CALC)); LIPASE 413 u/l (23-300); POTASSIUM 3.7 mmol/l (3.5-5.1); SGOT/AST 27 u/l (17-59); SODIUM 136 mmol/l (137-146); TOTAL PROTEIN 6.8 g/dL (6.3-8.2)
[2023-03-28] MEDS ORDERED: CREON12000 UNT PO (10:10)
[2023-03-28] MEDS ORDERED: ZOFRAN4 MG/TAB PO (10:10)
[2023-03-28] MEDS ORDERED: LORTAB 1010 MG PO (10:11)
[2023-03-28] MEDS ORDERED: LYRICA50 MG PO (10:11)
[2023-03-28] MEDS ORDERED: ZESTRIL40 MG PO (10:15)
[2023-03-29 04:39] VITALS: BP 129/79
[2023-03-29 07:35] LABS: ALBUMIN 4.1 g/dL (3.2-5.0); ALKALINE PHOSPHATASE 103 u/l (38-126); ANION GAP 11 (6-22 (CALC)); BILIRUBIN, TOTAL 1.6 mg/dL (0.2-1.3); BUN 6 mg/dL (9-20); BUN/CREATININE RATIO 9 (12-20 (CALC)); CARBON DIOXIDE 28 mmol/l (22-30); CHLORIDE 100 mmol/l (95-108); CREATININE 0.7 mg/dL (0.7-1.3); GFR FOR AFR.AMER. > 60 ML/MIN (>=60 (CALC)); GFR OTHER RACES > 60 ML/MIN (>=60 (CALC)); LIPASE 220 u/l (23-300); POTASSIUM 3.4 mmol/l (3.5-5.1); SGOT/AST 39 u/l (17-59); SODIUM 136 mmol/l (137-146); TOTAL PROTEIN 7.1 g/dL (6.3-8.2)
[2023-03-29 08:05] VITALS: BP 160/90
[2023-03-29 10:23] VITALS: BP 160/90
== END 2023-03-29 12:00 | disposition home or self-care (01) | DRG 439 ==
LOC: ED 13:31 → ED-I 15:10 → ED 15:44 → MS2 15:45
PROVIDERS: Nurse Practitioner; ADMIT Internal Medicine; ATTEND Internal Medicine
DX: K85.20 Alcohol induced acute pancreatitis without necrosis or infection (principal); F10.988 Alcohol use, unspecified with other alcohol-induced disorder; K86.0 Alcohol-induced chronic pancreatitis; I10 Essential (primary) hypertension; F17.200 Nicotine dependence, unspecified, uncomplicated
CPT/HCPCS: J1650; Q9967

== ENCOUNTER 2023-05-11 15:49 | Emergency (ER) | payer OTHER ==
[~2023-05-11] VITALS: Ht 188 cm; Wt 113.8 kg
[~2023-05-11 15:49] MED LIST changes: +CREON12000 UNT PO; +LYRICA50 MG PO; +TENORMIN25 MG PO; +ZESTRIL40 MG PO
[2023-05-11] MEDS ORDERED: CREON12000 UNT PO (16:09)
[2023-05-11] MEDS ORDERED: HYDROCHLOROT25 MG PO (16:09)
[2023-05-11 16:58] LABS: URINE BILIRUBIN - DIPSTICK NEGATIVE (NEGATIVE); URINE BLOOD DIPSTICK SMALL (NEGATIVE); URINE COLOR YELLOW; URINE GLUCOSE - DIPSTICK NEGATIVE (NEGATIVE); URINE KETONE NEGATIVE (NEGATIVE); URINE LEUK ESTERASE NEGATIVE (NEGATIVE); URINE PROTEIN - DIPSTICK 30 mg/dL (NEG-TRACE); URINE SPECIFIC GRAVITY 1.025; URINE UROBILINOGEN - DIPSTICK 0.2 E.U./dL (0.2)
[2023-05-11 17:08] LABS: URINE NITRITE - DIPSTICK NEGATIVE (Negative)
[2023-05-11 17:11] LABS: URINE RBC 0-2 RBC/hpf (0-5)
[2023-05-11 17:36] LABS: BASO% 0.7 % (0-3); EOS% 0.9 % (0-8); HEMATOCRIT 41.8 % (39.0-50.0); HEMOGLOBIN 13.4 g/dl (14.0-18.0); IMMATURE GRANULOCYTES 0.2 % (0.0-5.0); LYMPH% 19.6 % (15-41); MEAN CELL VOLUME 77.7 fL CALC (80.0-100.0); MEAN CORPUSCULAR HGB 24.9 pG CALC (26.0-32.0); MEAN CORPUSCULAR HGB CONC 32.1 g/dL CAL (32.0-36.0); MONO% 7.9 % (2-13); NEUT# 6.12 thou/uL (1.82-7.42); NEUT% 70.7 % (42-76); RED BLOOD COUNT 5.38 mill/uL (4.70-6.10); RED CELL DISTRI WIDTH 14.3 % (11.5-15.5)
[2023-05-11 17:42] LABS: ALBUMIN 4.6 g/dL (3.2-5.0); ALKALINE PHOSPHATASE 117 u/l (38-126); ANION GAP 14 (6-22 (CALC)); BILIRUBIN, TOTAL 1.1 mg/dL (0.2-1.3); BUN 9 mg/dL (9-20); BUN/CREATININE RATIO 13 (12-20 (CALC)); CARBON DIOXIDE 27 mmol/l (22-30); CHLORIDE 95 mmol/l (95-108); CREATININE 0.7 mg/dL (0.7-1.3); GFR FOR AFR.AMER. > 60 ML/MIN (>=60 (CALC)); GFR OTHER RACES > 60 ML/MIN (>=60 (CALC)); LIPASE 582 u/l (23-300); POTASSIUM 3.5 mmol/l (3.5-5.1); SGOT/AST 53 u/l (17-59); SODIUM 133 mmol/l (137-146); TOTAL PROTEIN 8.1 g/dL (6.3-8.2)
[2023-05-11 20:04] VITALS: BP 160/104
== END 2023-05-11 20:05 | disposition home or self-care (01) | DRG 392 ==
LOC: ED 15:49
PROVIDERS: Family Medicine
DX: R10.11 Right upper quadrant pain (principal); I10 Essential (primary) hypertension; F17.210 Nicotine dependence, cigarettes, uncomplicated

== ENCOUNTER 2023-06-01 01:50 | Emergency (ER) | payer OTHER ==
[~2023-06-01] VITALS: Ht 188 cm; Wt 108.8 kg
[~2023-06-01 01:50] MED LIST changes: +HYDROCHLOROT25 MG PO
[2023-06-01 03:02] LABS: BASO% 0.9 % (0-3); EOS% 3.3 % (0-8); HEMATOCRIT 39.7 % (39.0-50.0); HEMOGLOBIN 12.7 g/dl (14.0-18.0); LYMPH% 37.4 % (15-41); MEAN CELL VOLUME 77.8 fL CALC (80.0-100.0); MEAN CORPUSCULAR HGB 24.9 pG CALC (26.0-32.0); MONO% 8.1 % (2-13); NEUT# 3.3 thou/uL (1.82-7.42); NEUT% 50.3 % (42-76); RED BLOOD COUNT 5.1 mill/uL (4.70-6.10); RED CELL DISTRI WIDTH 14.2 % (11.5-15.5)
[2023-06-01 03:08] LABS: ALBUMIN 4.4 g/dL (3.2-5.0); ALKALINE PHOSPHATASE 106 u/l (38-126); ANION GAP 14 (6-22 (CALC)); BILIRUBIN, TOTAL 0.8 mg/dL (0.2-1.3); BUN 10 mg/dL (9-20); BUN/CREATININE RATIO 15 (12-20 (CALC)); CARBON DIOXIDE 26 mmol/l (22-30); CHLORIDE 99 mmol/l (95-108); CREATININE 0.7 mg/dL (0.7-1.3); GFR FOR AFR.AMER. > 60 ML/MIN (>=60 (CALC)); GFR OTHER RACES > 60 ML/MIN (>=60 (CALC)); LIPASE 860 u/l (23-300); POTASSIUM 3.7 mmol/l (3.5-5.1); SGOT/AST 47 u/l (17-59); SODIUM 136 mmol/l (137-146); TOTAL PROTEIN 7.5 g/dL (6.3-8.2)
[2023-06-01 03:19] LABS: URINE BILIRUBIN - DIPSTICK NEGATIVE (NEGATIVE); URINE BLOOD DIPSTICK NEGATIVE (NEGATIVE); URINE COLOR YELLOW; URINE GLUCOSE - DIPSTICK NEGATIVE (NEGATIVE); URINE KETONE NEGATIVE (NEGATIVE); URINE LEUK ESTERASE NEGATIVE (NEGATIVE); URINE PROTEIN - DIPSTICK NEGATIVE (NEG-TRACE); URINE SPECIFIC GRAVITY 1.025
[2023-06-01 03:20] LABS: URINE NITRITE - DIPSTICK NEGATIVE (Negative)
[2023-06-01] MEDS ORDERED: PERCOCET 10/31 COMBO PO (03:31)
[2023-06-01 03:33] VITALS: BP 168/84
[2023-06-02] MEDS ORDERED: HYDROCHLOROT25 MG PO (15:25)
[2023-06-03] MEDS ORDERED: LYRICA50 MG PO (10:42)
== END 2023-06-01 03:46 | disposition home or self-care (01) | DRG 440 ==
LOC: ED 01:50
PROVIDERS: Emergency Medicine
DX: K85.20 Alcohol induced acute pancreatitis without necrosis or infection (principal); I10 Essential (primary) hypertension; F17.210 Nicotine dependence, cigarettes, uncomplicated
CPT/HCPCS: S0164

== ENCOUNTER 2023-06-21 13:33 | Emergency (ER) | payer OTHER ==
[2023-06-21] VITALS (23 sets, daily range): BP systolic 128–171; BP diastolic 61–102
[~2023-06-21] VITALS: Ht 188 cm; Wt 117.0 kg
[~2023-06-21 13:33] MED LIST changes: +PERCOCET 10/31 COMBO PO
[2023-06-21 13:54] LABS: BASO% 0.5 % (0-3); HEMATOCRIT 41.8 % (39.0-50.0); HEMOGLOBIN 13.2 g/dl (14.0-18.0); IMMATURE GRANULOCYTES 0.1 % (0.0-5.0); LYMPH% 31.8 % (15-41); MEAN CORPUSCULAR HGB CONC 31.6 g/dL CAL (32.0-36.0); MONO% 7.5 % (2-13); NEUT# 4.3 thou/uL (1.82-7.42); NEUT% 59.1 % (42-76); RED BLOOD COUNT 5.29 mill/uL (4.70-6.10); RED CELL DISTRI WIDTH 15.1 % (11.5-15.5)
[2023-06-21 14:05] LABS: ALBUMIN 4.5 g/dL (3.2-5.0); ALKALINE PHOSPHATASE 102 u/l (38-126); ANION GAP 12 (6-22 (CALC)); BUN 7 mg/dL (9-20); BUN/CREATININE RATIO 9 (12-20 (CALC)); CARBON DIOXIDE 24 mmol/l (22-30); CHLORIDE 104 mmol/l (95-108); CREATININE 0.8 mg/dL (0.7-1.3); GFR FOR AFR.AMER. > 60 ML/MIN (>=60 (CALC)); GFR OTHER RACES > 60 ML/MIN (>=60 (CALC)); LIPASE 322 u/l (23-300); POTASSIUM 3.9 mmol/l (3.5-5.1); SGOT/AST 47 u/l (17-59); SODIUM 136 mmol/l (137-146); TOTAL PROTEIN 7.9 g/dL (6.3-8.2)
[2023-06-21 16:44] LABS: URINE BILIRUBIN - DIPSTICK NEGATIVE (NEGATIVE); URINE COLOR YELLOW; URINE GLUCOSE - DIPSTICK NEGATIVE (NEGATIVE); URINE KETONE Negative (NEGATIVE); URINE PROTEIN - DIPSTICK NEGATIVE (NEG-TRACE); URINE UROBILINOGEN - DIPSTICK 0.2 E.U./dL (0.2)
[2023-06-21 16:45] LABS: URINE BLOOD DIPSTICK NEGATIVE (NEGATIVE); URINE LEUK ESTERASE NEGATIVE (NEGATIVE); URINE NITRITE - DIPSTICK NEGATIVE (Negative)
[2023-06-21] MEDS ORDERED: HYDROCO/APAP1 TA9 PO (18:40)
== END 2023-06-21 19:11 | disposition home or self-care (01) | DRG 392 ==
LOC: ED 13:33
PROVIDERS: Family Medicine
DX: R10.13 Epigastric pain (principal); K86.1 Other chronic pancreatitis; I10 Essential (primary) hypertension; F17.200 Nicotine dependence, unspecified, uncomplicated

== ENCOUNTER 2023-06-21 23:45 | Observation (INO) | payer OTHER ==
[~2023-06-21] VITALS: Ht 188 cm; Wt 108.0 kg
[2023-06-22] VITALS (78 sets, daily range): BP systolic 143–204; BP diastolic 74–120
--- NOTE | 2023-06-22 01:05 | NUR ---
AMBULATORY TO ROOM 4 FOR TRIAGE AT BEDSIDE.
[2023-06-22 02:20] LABS: BASO% 0.3 % (0-3); EOS% 0.2 % (0-8); HEMATOCRIT 40.3 % (39.0-50.0); HEMOGLOBIN 12.9 g/dl (14.0-18.0); IMMATURE GRANULOCYTES 0.2 % (0.0-5.0); LYMPH% 10.2 % (15-41); MEAN CELL VOLUME 78.1 fL CALC (80.0-100.0); MONO% 3.8 % (2-13); NEUT# 10.01 thou/uL (1.82-7.42); NEUT% 85.3 % (42-76); RED BLOOD COUNT 5.16 mill/uL (4.70-6.10); RED CELL DISTRI WIDTH 14.6 % (11.5-15.5)
[2023-06-22 02:39] LABS: ALBUMIN 4.5 g/dL (3.2-5.0); ALKALINE PHOSPHATASE 99 u/l (38-126); AMYLASE 329 u/l (30-110); ANION GAP 15 (6-22 (CALC)); BILIRUBIN, TOTAL 1.8 mg/dL (0.2-1.3); BUN 5 mg/dL (9-20); BUN/CREATININE RATIO 7 (12-20 (CALC)); CARBON DIOXIDE 21 mmol/l (22-30); CHLORIDE 103 mmol/l (95-108); CREATININE 0.7 mg/dL (0.7-1.3); GFR FOR AFR.AMER. > 60 ML/MIN (>=60 (CALC)); GFR OTHER RACES > 60 ML/MIN (>=60 (CALC)); POTASSIUM 3.5 mmol/l (3.5-5.1); SGOT/AST 42 u/l (17-59); SODIUM 136 mmol/l (137-146); TOTAL PROTEIN 7.8 g/dL (6.3-8.2)
[2023-06-22 02:59] LABS: LIPASE 5024 u/l (23-300)
--- NOTE | 2023-06-22 03:50 | NUR ---
RETURNED FROM CT VIA W/C. FEELS BETTER.
--- NOTE | 2023-06-22 04:15 | NUR ---
DR AWARE OF ELEVATED BP....WILL RE-EVAL AFTER PAIN MEDICATION KICKS IN.
--- NOTE | 2023-06-22 04:40 | NUR ---
PT IS VOMITING AGAIN. DR. NICK.
--- NOTE | 2023-06-22 04:48 | NUR ---
PT MEDICATED FOR VOMITING/HTN. WILL MONITOR
--- NOTE | 2023-06-22 05:58 | NUR ---
PT GIVEN ADDITIONAL BP MEDICATION.
--- NOTE | 2023-06-22 06:10 | NUR ---
REPORT TO AV RN/ICU (OVERFLOW PT)
--- NOTE | 2023-06-22 06:20 | NUR ---
PT TRANSFERED TO ICU RM 2 ON STRETCHER BY KENNEY NORTH. PT AMBULATED INDEPENDENTLY FROM THE STRETCHER TO THE BED. PT C/O ABD. PAIN 10 OUT OF 10 AND NAUSEA. PT ATTACHED TO MONITOR. BED IN THE LOWEST POSITION WITH BEDSIDE TABLE AND CALL LIGHT WITH IN REACH. WILL CONTINUE TO MONITOR.
--- NOTE | 2023-06-22 06:30 | NUR ---
TO FLOOR VIA STRETCHER ON MONITORS. NAD.
--- NOTE | 2023-06-22 08:00 | NUR ---
RCD REPORT FROM [facility]. PT WAS JUST ADMITTED AND HAS EXTREME ABD PAIN. UPON ASSESSMENT PT HAS TENDERNESS IN ALL QUADRANTS. PT IS A/OX3. PT HAS URNIAL AT BEDSIDE. PT SKIN INTACT. PT HAS BEEN COMPLAINING OF N/V AND RCD ZOFRAN. PT IS STILL COMPLAINING OF PAIN, DILAUDID IS SCHEDULED FOR 814, PT IS AWARE. PT IS GAURDING ABD. PT IS ON RA WITH CLEAR LUNG SOUNDS. PT DENIES ANY OTHER COMPLAINTS AT THIS TIME. CALL LIGHT WITHIN REACH. BED IN LOWEST POSITION.
--- NOTE | 2023-06-22 12:00 | NUR ---
pt resting in bed. in extreme pain, pain meds due at 1215, pt aware. bp high, md aware, ordering hydralazine. pt denies any other complaints.
--- NOTE | 2023-06-22 12:15 | NUR ---
REPORT RECIEVED FROM PT'S NURSE. PT CARE ASSUMED AT THIS TIME. PT IS ASLEEP IN BED. VSS.
--- NOTE | 2023-06-22 14:10 | NUR ---
DR. GARCIA AT BEDSIDE TO RE-ASSESS PT. CALL LIGHT WITHIN REACH. VSS.
--- NOTE | 2023-06-22 14:19 | NUR ---
PHONE CALL PLACED TO DR. GARCIA IN REGARDS TO PT'S ELEVATED BP. VERBAL ORDERS RECIEVED FOR LABETOLOL. ORDER TO BE PLACED BY DR. GARCIA.
--- NOTE | 2023-06-22 16:00 | NUR ---
PT LYING IN BED ASLEEP. CALL LIGHT AND BELONGINGS WITHIN REACH. PT'S BP REMAINS ELEVATED. MD AWARE OF THIS TREND. ALL OTHER VSS.
--- NOTE | 2023-06-22 18:00 | NUR ---
PT LYING IN BED. DENIES ANY NEEDS. CALL LIGHT WITHIN REACH. VSS.
--- NOTE | 2023-06-22 19:30 | NUR ---
PT HAS RETURNED FROM ABD US, RESTING IN BED IN OBVIOUS DISCOMFORT AND C/O ABD PAIN 8/10 WITH NAUSEA. PT INFORMED PAIN MEDS ARE Q4H AND HE CAN HAVE HIS NEXT DOSE AT 2029. BED IN THE LOWEST POSITION WITH BEDSIDE TABLE AND CALL LIGHT WITH IN REACH. WILL CONTINUE TO MONITOR.
[2023-06-22 22:10] LABS: HEMATOCRIT 41.6 % (39.0-50.0); HEMOGLOBIN 13.5 g/dl (14.0-18.0); MEAN CELL VOLUME 77.5 fL CALC (80.0-100.0); MEAN CORPUSCULAR HGB 25.1 pG CALC (26.0-32.0); MEAN CORPUSCULAR HGB CONC 32.5 g/dL CAL (32.0-36.0); RED BLOOD COUNT 5.37 mill/uL (4.70-6.10); RED CELL DISTRI WIDTH 14.9 % (11.5-15.5)
[2023-06-22 22:23] LABS: ANION GAP 13 (6-22 (CALC)); BUN 4 mg/dL (9-20); BUN/CREATININE RATIO 7 (12-20 (CALC)); CALCULATED LDLCHOLESTEROL 116 mg/dL (62-129 (CALC)); CARBON DIOXIDE 25 mmol/l (22-30); CHLORIDE 96 mmol/l (95-108); CHOLESTEROL HDL RATIO 3.7 (<4.4 (CALC)); CREATININE 0.6 mg/dL (0.7-1.3); GFR FOR AFR.AMER. > 60 ML/MIN (>=60 (CALC)); GFR OTHER RACES > 60 ML/MIN (>=60 (CALC)); HDL CHOLESTEROL 51 mg/dL (39.0-59.0); MAGNESIUM 1.7 mg/dL (1.6-2.3); POTASSIUM 3.3 mmol/l (3.5-5.1); SODIUM 131 mmol/l (137-146); TOTAL CHOLESTEROL 189 mg/dl (0-199); TOTAL TRIGLYCERIDES 106 mg/dl (0-149); VLDL CHOLESTROL 21 mg/dl (5-56 (CALC))
[2023-06-23] VITALS (12 sets, daily range): BP systolic 141–181; BP diastolic 73–106
--- NOTE | 2023-06-23 01:00 | NUR ---
PT RESTING A BIT BETTER SINCE PAIN MEDS AND ZOFRAN BUT STILL VISIABLY IN PAIN. BP HAS BEEN ON THE HIGH SIDE, PRN BP MEDS ARE Q6. BED IN THE LOWEST POSITION WITH BEDSIDE TABLE AND CALL LIGHT WITH IN REACH. WILL CONTINUE TO MONITOR.
[2023-06-23 05:49] LABS: HEMATOCRIT 41.6 % (39.0-50.0); HEMOGLOBIN 13.7 g/dl (14.0-18.0); MEAN CELL VOLUME 76.9 fL CALC (80.0-100.0); MEAN CORPUSCULAR HGB 25.3 pG CALC (26.0-32.0); MEAN CORPUSCULAR HGB CONC 32.9 g/dL CAL (32.0-36.0); RED BLOOD COUNT 5.41 mill/uL (4.70-6.10); RED CELL DISTRI WIDTH 14.7 % (11.5-15.5)
[2023-06-23 06:23] LABS: ALBUMIN 4.3 g/dL (3.2-5.0); ALKALINE PHOSPHATASE 87 u/l (38-126); ANION GAP 15 (6-22 (CALC)); BILIRUBIN, TOTAL 2.2 mg/dL (0.2-1.3); BUN 5 mg/dL (9-20); BUN/CREATININE RATIO 7 (12-20 (CALC)); CARBON DIOXIDE 25 mmol/l (22-30); CHLORIDE 95 mmol/l (95-108); CREATININE 0.6 mg/dL (0.7-1.3); GFR FOR AFR.AMER. > 60 ML/MIN (>=60 (CALC)); GFR OTHER RACES > 60 ML/MIN (>=60 (CALC)); MAGNESIUM 1.8 mg/dL (1.6-2.3); POTASSIUM 3.3 mmol/l (3.5-5.1); SGOT/AST 27 u/l (17-59); SODIUM 132 mmol/l (137-146); TOTAL PROTEIN 7.8 g/dL (6.3-8.2)
[2023-06-23 07:58] LABS: AMYLASE 115 u/l (30-110); LIPASE 476 u/l (23-300)
--- NOTE | 2023-06-23 08:00 | NUR ---
REPORT RECIEVED FROM NIGHT RN. PT ADMITTED FOR ACUTE PANCREATITIS. PT IS A/O. REPORTS THAT HE IS HAVING LESS DISCOMFORT THAN YESTERDAY AND WAS ABLE TO SIP ON WATER WITHOUT BECOMING NAUSEATED. LUNGS CLEAR; PT IS ON RA. NO COUGH OR SOB. HEART RHYTHM REGULAR; PT IS NSR WITH OCCASIONAL PVC'S. BOWEL SOUNDS HYPOACTIVE. ABDOMEN DISTENDED AND TENDER IF PALPATED; THIS IS NOT A NEW FINDING. PULSES STRONG ALL EXTREMETIES. SKIN W/D/I. NO EDEMA. IV ACCESS 22G R HAND. CALL LIGHT AND BELONGINGS WITHIN REACH. VSS. PT DECLINED GETTING UP TO CHAIR AT THIS TIME.
--- NOTE | 2023-06-23 09:00 | NUR ---
DR. GARCIA AT BEDSIDE TO ASSESS PT.
--- NOTE | 2023-06-23 10:15 | NUR ---
PT UP TO CHAIR. CALL LIGHT WITHIN REACH. VSS. PT ASKING FOR ZOFRAN FOR MINOR NAUSEA. NO DRY HEAVING AT THIS TIME.
--- NOTE | 2023-06-23 12:15 | NUR ---
PT SITTING IN CHAIR. PT REPORTING PAIN AND ASKING FOR MEDICATION. PT INFORMED THAT PRN PAIN MEDS CAN BE GIVEN SHORTLY. RELAXATION AND REPOSITIONING DONE TO ASSIST WITH PAIN AT THIS TIME. PT DENIED ANY ADDITIONAL NEEDDS. CALL LIGHT WITHIN REACH.
--- NOTE | 2023-06-23 13:16 | NUR ---
PT TAKEN TO MRI BY WHEELCHAIR.
--- NOTE | 2023-06-23 14:15 | NUR ---
PT BACK FROM MRI AND RESTING IN BED. PT REPORTING SOME NAUSEA AND REQUESTING ZOFRAN.
--- NOTE | 2023-06-23 16:00 | NUR ---
PT SITTING UP IN BED. DENIES ANY NEEDS AT THIS TIME. VSS. CALL LIGHT WITHIN REACH.
--- NOTE | 2023-06-23 18:00 | NUR ---
PT ASSISTED TO CHAIR. PT'S SIGNIFICANT OTHER AT BEDSIDE TO HELP HIM GET CLEANED UP. PT'S HR BECOMES ELEVATED WITH MOVEMENT BUT RECOVERS QUICKLY. PT EATING AND TOLERATING WELL. VSS AT THIS TIME. CALL LIGHT AND BELONGINGS WITHIN REACH.
--- NOTE | 2023-06-23 19:00 | NUR ---
REPORT RECIEVED FROM OFF GOING NURSE.
--- NOTE | 2023-06-23 19:32 | NUR ---
PATIENT NOTED LYING IN BED WITH NO ACUTE DISTRESS NOTED. VSS. ASSESSMENT COMPLETED. HE IS ALERT AND ORIENTED X3. AMBULATORY WITH STANDBY ASSIST. NO EDEMA NOTED. STRONG PEDAL AND RADIAL PULSES NOTED. IV SITES NOTED PATENT. WHEEZES NOTED ON THE RIGHT SIDE. WILL CONTINUE TO MONITOR.
--- NOTE | 2023-06-23 20:54 | NUR ---
PATIENT NOTED SITTING ON SIDE OF BED VOMITTING. PATIENT MEDICATED FOR N/V AND PAIN X1
[2023-06-24] VITALS (11 sets, daily range): BP systolic 130–154; BP diastolic 80–106
--- NOTE | 2023-06-24 | NUR ---
PATIENT LYING IN BED RESTING COMFORTABLY WITH NO ACUTE DISTRESS NOTED. VSS. PATIENT SLEEPING AT THIS TIME.
--- NOTE | 2023-06-24 04:00 | NUR ---
PATIENT RESTING COMFORTABLY WITH NO ACUTE DISTRESS NOTED. BED LOCKED, IN LOW POSITION, CALL LIGHT WITHIN REACH.
--- NOTE | 2023-06-24 07:00 | NUR ---
REPORT RECIEVED FROM NIGHT RN. PT ASLEEP IN BED. VSS.
--- NOTE | 2023-06-24 07:30 | NUR ---
PT A/O. NOT REPORTING PAIN OR NAUSEA AT THIS TIME AND STATED HE WOULD BE OKAY TO TRY EATING TODAY. LUNGS CLEAR; PT IS ON RA. NO COUGH OR SOB. HEART RHYTHM REGULAR; PT IS NSR; BUT BECOMES SLIGHTLY TACHYCARDIC WHEN MOVING BUT RECOVERS EASILY. BOWEL SOUNDS HYPOACTIVE. PT DOES HAVE SOME TENDERNESS IN ABDOMEN. PT VOIDS WITHOUT DIFFICULTY. SKIN W/D/I. PULSES STRONG ALL EXTREMETIES. IV ACCESS 22 R HAND. CALL LIGHT AND BELONGINGS WITHIN REACH. VSS.
--- NOTE | 2023-06-24 08:50 | NUR ---
DR. GARCIA AT BEDSIDE TO ASSESS PT.
[2023-06-24 09:30] LABS: HEMATOCRIT 36.6 % (39.0-50.0); HEMOGLOBIN 11.8 g/dl (14.0-18.0); MEAN CELL VOLUME 78.2 fL CALC (80.0-100.0); MEAN CORPUSCULAR HGB 25.2 pG CALC (26.0-32.0); MEAN CORPUSCULAR HGB CONC 32.2 g/dL CAL (32.0-36.0); RED BLOOD COUNT 4.68 mill/uL (4.70-6.10); RED CELL DISTRI WIDTH 14.9 % (11.5-15.5)
[2023-06-24 09:36] LABS: ALKALINE PHOSPHATASE 80 u/l (38-126); ANION GAP 11 (6-22 (CALC)); BILIRUBIN, TOTAL 2.2 mg/dL (0.2-1.3); BUN 5 mg/dL (9-20); BUN/CREATININE RATIO 7 (12-20 (CALC)); CARBON DIOXIDE 25 mmol/l (22-30); CHLORIDE 99 mmol/l (95-108); CREATININE 0.6 mg/dL (0.7-1.3); GFR FOR AFR.AMER. > 60 ML/MIN (>=60 (CALC)); GFR OTHER RACES > 60 ML/MIN (>=60 (CALC)); POTASSIUM 3.6 mmol/l (3.5-5.1); SGOT/AST 24 u/l (17-59); SODIUM 132 mmol/l (137-146); TOTAL PROTEIN 6.4 g/dL (6.3-8.2)
[2023-06-24 09:44] LABS: ALBUMIN 3.4 g/dL (3.2-5.0)
--- NOTE | 2023-06-24 11:00 | NUR ---
PT LYING IN BED. REPORTING SOME NAUSEA AND PAIN AND REQUESTING MEDICATION. PT MEDICATED PER ORDERS.
--- NOTE | 2023-06-24 12:12 | NUR ---
PT SITTING AT EDGE OF BED EATING LUNCH. PT TOLERATING MEAL WELL, DENIES ANY NAUSEA OR STOMACH PAIN AT THIS TIME.
--- NOTE | 2023-06-24 13:40 | NUR ---
PT SITTING IN CHAIR. INFORMED OF PLANNED DISCHARGE. PT DENIES ANY PAIN OR NAUSEA AT THIS TIME.
--- NOTE | 2023-06-24 14:04 | NUR ---
PT GIVEN DISCHARGE INSTRUCTIONS AND EDUCATED ON MEDICATIONS. PT VERBALIZED UNDERSTANDING. ALL BELONGINGS GATHERED. IV REMOVED. PT IN GOOD CONDITION UPON DISCHARGE. PT TAKEN TO ER ENTRANCE BY WHEELCHAIR. PT STATED MULTIPLE TIMES THAT HE FELT GOOD AND WAS ABLE TO DRIVE HIMSELF HOME.
== END 2023-06-24 13:58 | disposition home or self-care (01) | DRG 440 ==
LOC: ED 23:45 → ED-I 06-22 03:55 → ED 06-22 04:10 → ICU 06-22 04:11
PROVIDERS: Emergency Medicine; ADMIT Student in an Organized Health Care Education/Training Program; ATTEND Student in an Organized Health Care Education/Training Program
DX: K86.0 Alcohol-induced chronic pancreatitis (principal); K85.20 Alcohol induced acute pancreatitis without necrosis or infection; F10.10 Alcohol abuse, uncomplicated; I10 Essential (primary) hypertension; F17.210 Nicotine dependence, cigarettes, uncomplicated
CPT/HCPCS: Q9967

== ENCOUNTER 2023-07-02 20:51 | Emergency (ER) | payer OTHER ==
[~2023-07-02] VITALS: Ht 188 cm; Wt 115.0 kg
[2023-07-02 21:05] VITALS: BP 178/105
[2023-07-02 21:08] VITALS: BP 165/94
[2023-07-02 21:16] VITALS: BP 180/89
[2023-07-02 21:31] VITALS: BP 169/101
[2023-07-02 21:52] LABS: BASO% 0.4 % (0-3); EOS% 0.6 % (0-8); HEMATOCRIT 36.3 % (39.0-50.0); HEMOGLOBIN 11.6 g/dl (14.0-18.0); IMMATURE GRANULOCYTES 0.2 % (0.0-5.0); LYMPH% 17.8 % (15-41); MEAN CELL VOLUME 78.4 fL CALC (80.0-100.0); MEAN CORPUSCULAR HGB 25.1 pG CALC (26.0-32.0); MONO% 6.1 % (2-13); NEUT# 8.7 thou/uL (1.82-7.42); NEUT% 74.9 % (42-76); RED BLOOD COUNT 4.63 mill/uL (4.70-6.10); RED CELL DISTRI WIDTH 14.6 % (11.5-15.5)
[2023-07-02 22:06] LABS: ALBUMIN 4.2 g/dL (3.2-5.0); ALKALINE PHOSPHATASE 115 u/l (38-126); AMYLASE 72 u/l (30-110); ANION GAP 13 (6-22 (CALC)); BILIRUBIN, TOTAL 1.4 mg/dL (0.2-1.3); BUN 5 mg/dL (9-20); BUN/CREATININE RATIO 7 (12-20 (CALC)); CARBON DIOXIDE 24 mmol/l (22-30); CHLORIDE 103 mmol/l (95-108); CREATININE 0.7 mg/dL (0.7-1.3); GFR FOR AFR.AMER. > 60 ML/MIN (>=60 (CALC)); GFR OTHER RACES > 60 ML/MIN (>=60 (CALC)); LIPASE 100 u/l (23-300); POTASSIUM 3.8 mmol/l (3.5-5.1); SGOT/AST 36 u/l (17-59); SODIUM 136 mmol/l (137-146); TOTAL PROTEIN 7.6 g/dL (6.3-8.2)
[2023-07-02 22:15] VITALS: BP 182/98
[2023-07-03] MEDS ORDERED: LORTAB 1010 MG PO (00:02)
[2023-07-03] MEDS ORDERED: PROTONIX40 MG PO (00:02)
[2023-07-03] MEDS ORDERED: ONDANSETRON4 MG PO (00:02)
[2023-07-03 00:29] VITALS: BP 182/98
== END 2023-07-03 00:41 | disposition home or self-care (01) | DRG 440 ==
LOC: ED 20:51
PROVIDERS: Emergency Medicine
DX: K85.90 Acute pancreatitis without necrosis or infection, unspecified (principal); K86.1 Other chronic pancreatitis; I10 Essential (primary) hypertension; F17.200 Nicotine dependence, unspecified, uncomplicated
CPT/HCPCS: Q9967; S0164

== ENCOUNTER 2023-07-05 09:59 | Emergency (ER) | payer OTHER ==
[2023-07-05] VITALS (16 sets, daily range): BP systolic 136–185; BP diastolic 79–132
[~2023-07-05] VITALS: Ht 188 cm; Wt 113.4 kg
[2023-07-05] MEDS ORDERED: ATENOLOL50 MG PO (10:13)
[2023-07-05] MEDS ORDERED: CREON12000 UNT PO (10:14)
[2023-07-05] MEDS ORDERED: CARAFATE1 GM PO (10:15)
[2023-07-05 11:00] LABS: BASO% 0.7 % (0-3); EOS% 0.6 % (0-8); HEMATOCRIT 37.3 % (39.0-50.0); HEMOGLOBIN 12.1 g/dl (14.0-18.0); IMMATURE GRANULOCYTES 0.2 % (0.0-5.0); MEAN CELL VOLUME 77.5 fL CALC (80.0-100.0); MEAN CORPUSCULAR HGB 25.2 pG CALC (26.0-32.0); MEAN CORPUSCULAR HGB CONC 32.4 g/dL CAL (32.0-36.0); MONO% 5.5 % (2-13); NEUT# 7.89 thou/uL (1.82-7.42); RED BLOOD COUNT 4.81 mill/uL (4.70-6.10); RED CELL DISTRI WIDTH 14.3 % (11.5-15.5)
[2023-07-05 11:07] LABS: ALBUMIN 4.2 g/dL (3.2-5.0); ALKALINE PHOSPHATASE 113 u/l (38-126); ANION GAP 11 (6-22 (CALC)); BILIRUBIN, TOTAL 0.8 mg/dL (0.2-1.3); BUN 8 mg/dL (9-20); BUN/CREATININE RATIO 12 (12-20 (CALC)); CARBON DIOXIDE 27 mmol/l (22-30); CHLORIDE 101 mmol/l (95-108); CREATININE 0.7 mg/dL (0.7-1.3); GFR FOR AFR.AMER. > 60 ML/MIN (>=60 (CALC)); GFR OTHER RACES > 60 ML/MIN (>=60 (CALC)); LIPASE 100 u/l (23-300); POTASSIUM 3.9 mmol/l (3.5-5.1); SGOT/AST 38 u/l (17-59); SODIUM 136 mmol/l (137-146); TOTAL PROTEIN 7.7 g/dL (6.3-8.2)
[2023-07-05 12:19] LABS: URINE BILIRUBIN - DIPSTICK Negative (NEGATIVE); URINE BLOOD DIPSTICK Negative (NEGATIVE); URINE GLUCOSE - DIPSTICK 100 mg/dL (NEGATIVE); URINE KETONE Trace mg/dL (NEGATIVE); URINE LEUK ESTERASE Negative (NEGATIVE); URINE NITRITE - DIPSTICK Negative (Negative); URINE PH 6.5 (4.5-8.0); URINE PROTEIN - DIPSTICK 30 mg/dL (NEG-TRACE)
[2023-07-05 12:30] LABS: URINE COLOR Dark yellow
[2023-07-05 12:31] LABS: URINE MUCUS FEW hpf (NONE-FEW)
[2023-07-05] MEDS ORDERED: TRAMADOL HYDROC50 M1 PO (13:57)
[2023-07-05] MEDS ORDERED: ZOFRAN4 MG/TAB PO (13:57)
== END 2023-07-05 14:42 | disposition home or self-care (01) | DRG 392 ==
LOC: ED 09:59
PROVIDERS: Family Medicine
DX: R10.13 Epigastric pain (principal); I10 Essential (primary) hypertension; K86.1 Other chronic pancreatitis; F17.210 Nicotine dependence, cigarettes, uncomplicated
CPT/HCPCS: Q9967

== ENCOUNTER 2023-07-06 01:27 | Emergency (ER) | payer OTHER ==
[2023-07-06] VITALS (7 sets, daily range): BP systolic 148–183; BP diastolic 78–104
[~2023-07-06] VITALS: Ht 188 cm; Wt 113.0 kg
[~2023-07-06 01:27] MED LIST changes: +ATENOLOL50 MG PO
[2023-07-06 02:32] LABS: BASO% 0.4 % (0-3); EOS% 0.7 % (0-8); HEMATOCRIT 36.2 % (39.0-50.0); HEMOGLOBIN 11.6 g/dl (14.0-18.0); IMMATURE GRANULOCYTES 0.8 % (0.0-5.0); LYMPH% 20.4 % (15-41); MONO% 6.7 % (2-13); NEUT# 7.62 thou/uL (1.82-7.42); RED BLOOD COUNT 4.64 mill/uL (4.70-6.10); RED CELL DISTRI WIDTH 14.4 % (11.5-15.5)
[2023-07-06 02:40] LABS: ALBUMIN 3.9 g/dL (3.2-5.0); ALKALINE PHOSPHATASE 120 u/l (38-126); AMYLASE 45 u/l (30-110); ANION GAP 13 (6-22 (CALC)); BUN 7 mg/dL (9-20); BUN/CREATININE RATIO 11 (12-20 (CALC)); CARBON DIOXIDE 24 mmol/l (22-30); CHLORIDE 103 mmol/l (95-108); CREATININE 0.6 mg/dL (0.7-1.3); GFR FOR AFR.AMER. > 60 ML/MIN (>=60 (CALC)); GFR OTHER RACES > 60 ML/MIN (>=60 (CALC)); LIPASE 105 u/l (23-300); POTASSIUM 4.3 mmol/l (3.5-5.1); SGOT/AST 39 u/l (17-59); SODIUM 136 mmol/l (137-146)
== END 2023-07-06 04:10 | disposition home or self-care (01) | DRG 391 ==
LOC: ED 01:27
PROVIDERS: Emergency Medicine
DX: R10.33 Periumbilical pain (principal); K85.90 Acute pancreatitis without necrosis or infection, unspecified; K86.1 Other chronic pancreatitis; F10.10 Alcohol abuse, uncomplicated; I10 Essential (primary) hypertension; F17.200 Nicotine dependence, unspecified, uncomplicated; R11.10 Vomiting, unspecified; F17.210 Nicotine dependence, cigarettes, uncomplicated; Z20.822 Contact with and (suspected) exposure to COVID-19
CPT/HCPCS: Q9967; S0164

== ENCOUNTER 2023-07-06 13:48 | Emergency (ER) | payer OTHER ==
[~2023-07-06] VITALS: Ht 188 cm; Wt 112.4 kg
[2023-07-06 13:57] VITALS: BP 171/106
[2023-07-06 14:01] VITALS: BP 173/109
[2023-07-06 14:23] LABS: BASO% 0.3 % (0-3); EOS% 0.4 % (0-8); HEMOGLOBIN 12.2 g/dl (14.0-18.0); IMMATURE GRANULOCYTES 0.3 % (0.0-5.0); LYMPH% 14.5 % (15-41); MEAN CELL VOLUME 77.4 fL CALC (80.0-100.0); MEAN CORPUSCULAR HGB 24.8 pG CALC (26.0-32.0); MEAN CORPUSCULAR HGB CONC 32.1 g/dL CAL (32.0-36.0); MONO% 5.8 % (2-13); NEUT# 9.4 thou/uL (1.82-7.42); NEUT% 78.7 % (42-76); RED BLOOD COUNT 4.91 mill/uL (4.70-6.10); RED CELL DISTRI WIDTH 14.4 % (11.5-15.5)
[2023-07-06 14:35] LABS: ALKALINE PHOSPHATASE 136 u/l (38-126); AMYLASE 37 u/l (30-110); ANION GAP 13 (6-22 (CALC)); BILIRUBIN, TOTAL 1.2 mg/dL (0.2-1.3); BUN 4 mg/dL (9-20); BUN/CREATININE RATIO 6 (12-20 (CALC)); CARBON DIOXIDE 25 mmol/l (22-30); CHLORIDE 101 mmol/l (95-108); CREATININE 0.6 mg/dL (0.7-1.3); GFR FOR AFR.AMER. > 60 ML/MIN (>=60 (CALC)); GFR OTHER RACES > 60 ML/MIN (>=60 (CALC)); LIPASE 67 u/l (23-300); SGOT/AST 26 u/l (17-59); SODIUM 136 mmol/l (137-146); TOTAL PROTEIN 7.2 g/dL (6.3-8.2)
[2023-07-06 16:51] VITALS: BP 194/105
[2023-07-06 17:00] VITALS: BP 185/105
[2023-07-06 17:37] VITALS: BP 191/117
[2023-07-06 18:00] VITALS: BP 191/117
== END 2023-07-06 18:00 | disposition short-term general hospital (02) | DRG 440 ==
LOC: ED 13:48 → ED-I 14:50 → ED 18:00
PROVIDERS: Family Medicine
DX: K85.90 Acute pancreatitis without necrosis or infection, unspecified (principal); I10 Essential (primary) hypertension; K86.1 Other chronic pancreatitis; F17.210 Nicotine dependence, cigarettes, uncomplicated; Z20.822 Contact with and (suspected) exposure to COVID-19
CPT/HCPCS: Q9967

== ENCOUNTER 2023-07-18 00:10 | Emergency (ER) | payer OTHER ==
[~2023-07-18] VITALS: Ht 188 cm; Wt 113.0 kg
[2023-07-18 01:20] LABS: BASO% 1.1 % (0-3); EOS% 1.7 % (0-8); HEMATOCRIT 36.7 % (39.0-50.0); HEMOGLOBIN 11.7 g/dl (14.0-18.0); IMMATURE GRANULOCYTES 0.8 % (0.0-5.0); LYMPH% 24.7 % (15-41); MEAN CELL VOLUME 75.8 fL CALC (80.0-100.0); MEAN CORPUSCULAR HGB 24.2 pG CALC (26.0-32.0); MEAN CORPUSCULAR HGB CONC 31.9 g/dL CAL (32.0-36.0); MONO% 10.6 % (2-13); NEUT# 4.05 thou/uL (1.82-7.42); NEUT% 61.1 % (42-76); RED BLOOD COUNT 4.84 mill/uL (4.70-6.10); RED CELL DISTRI WIDTH 14.5 % (11.5-15.5)
[2023-07-18 01:30] LABS: ALBUMIN 4.6 g/dL (3.2-5.0); AMYLASE 50 u/l (30-110); ANION GAP 19 (6-22 (CALC)); BUN 7 mg/dL (9-20); BUN/CREATININE RATIO 8 (12-20 (CALC)); CARBON DIOXIDE 23 mmol/l (22-30); CHLORIDE 99 mmol/l (95-108); CREATININE 0.9 mg/dL (0.7-1.3); GFR FOR AFR.AMER. > 60 ML/MIN (>=60 (CALC)); GFR OTHER RACES > 60 ML/MIN (>=60 (CALC)); LIPASE 94 u/l (23-300); POTASSIUM 3.9 mmol/l (3.5-5.1); SODIUM 137 mmol/l (137-146)
[2023-07-18 01:37] LABS: BILIRUBIN, TOTAL 6.6 mg/dL (0.2-1.3); SGOT/AST 177 u/l (17-59); TOTAL PROTEIN 9.2 g/dL (6.3-8.2)
[2023-07-18 01:38] LABS: ALKALINE PHOSPHATASE 374 u/l (38-126)
[2023-07-18 10:02] VITALS: BP 124/68
--- NOTE | 2023-07-20 10:38 | NUR ---
PRELIMINARY BLOOD CULTURE SHOWS GRAM POSITIVE COCCI IN 1/3 VIALS. RESULTS FAXED TO NURSE MARION AT [facility].
== END 2023-07-18 10:04 | disposition short-term general hospital (02) | DRG 445 ==
LOC: ED 00:10
PROVIDERS: Emergency Medicine
DX: K81.9 Cholecystitis, unspecified (principal); K82.1 Hydrops of gallbladder; R74.01 Elevation of levels of liver transaminase levels; E80.6 Other disorders of bilirubin metabolism; K86.1 Other chronic pancreatitis; I10 Essential (primary) hypertension; F17.200 Nicotine dependence, unspecified, uncomplicated; Z20.822 Contact with and (suspected) exposure to COVID-19
CPT/HCPCS: Q9967; S0164

== ENCOUNTER 2023-07-22 15:19 | Emergency (ER) | payer OTHER ==
[2023-07-22] VITALS (12 sets, daily range): BP systolic 143–167; BP diastolic 84–105
[~2023-07-22] VITALS: Ht 188 cm; Wt 109.0 kg
[2023-07-22 16:06] LABS: BASO% 0.7 % (0-3); EOS% 1.2 % (0-8); HEMATOCRIT 31.5 % (39.0-50.0); HEMOGLOBIN 10.1 g/dl (14.0-18.0); IMMATURE GRANULOCYTES 0.2 % (0.0-5.0); LYMPH% 27.4 % (15-41); MEAN CELL VOLUME 75.4 fL CALC (80.0-100.0); MEAN CORPUSCULAR HGB 24.2 pG CALC (26.0-32.0); MEAN CORPUSCULAR HGB CONC 32.1 g/dL CAL (32.0-36.0); MONO% 12.1 % (2-13); NEUT# 3.42 thou/uL (1.82-7.42); NEUT% 58.4 % (42-76); RED BLOOD COUNT 4.18 mill/uL (4.70-6.10); RED CELL DISTRI WIDTH 14.9 % (11.5-15.5)
[2023-07-22 16:36] LABS: AMYLASE 51 u/l (30-110); LIPASE 49 u/l (23-300)
[2023-07-22 16:37] LABS: ALBUMIN 3.9 g/dL (3.2-5.0); ALKALINE PHOSPHATASE 228 u/l (38-126); ANION GAP 14 (6-22 (CALC)); BUN 3 mg/dL (9-20); BUN/CREATININE RATIO 5 (12-20 (CALC)); CARBON DIOXIDE 23 mmol/l (22-30); CHLORIDE 103 mmol/l (95-108); CREATININE 0.7 mg/dL (0.7-1.3); GFR FOR AFR.AMER. > 60 ML/MIN (>=60 (CALC)); GFR OTHER RACES > 60 ML/MIN (>=60 (CALC)); POTASSIUM 3.9 mmol/l (3.5-5.1); SGOT/AST 46 u/l (17-59); SODIUM 136 mmol/l (137-146)
[2023-07-22 16:39] LABS: BILIRUBIN, TOTAL 1.6 mg/dL (0.2-1.3); TOTAL PROTEIN 7.2 g/dL (6.3-8.2)
== END 2023-07-22 20:47 | disposition short-term general hospital (02) | DRG 444 ==
LOC: ED 15:19
PROVIDERS: Family Medicine
DX: K81.9 Cholecystitis, unspecified (principal); K85.90 Acute pancreatitis without necrosis or infection, unspecified; K86.1 Other chronic pancreatitis; I10 Essential (primary) hypertension; F17.210 Nicotine dependence, cigarettes, uncomplicated
CPT/HCPCS: Q9967

== ENCOUNTER 2023-08-04 13:02 | Emergency (ER) | payer OTHER ==
[2023-08-04] VITALS (8 sets, daily range): BP systolic 131–145; BP diastolic 84–97
[~2023-08-04] VITALS: Ht 188 cm; Wt 108.0 kg
[2023-08-04 14:29] LABS: EOS% 2.6 % (0-8); HEMATOCRIT 30.6 % (39.0-50.0); HEMOGLOBIN 9.8 g/dl (14.0-18.0); IMMATURE GRANULOCYTES 0.3 % (0.0-5.0); LYMPH% 31.4 % (15-41); MEAN CELL VOLUME 76.9 fL CALC (80.0-100.0); MEAN CORPUSCULAR HGB 24.6 pG CALC (26.0-32.0); MONO% 11.9 % (2-13); NEUT# 2.03 thou/uL (1.82-7.42); NEUT% 52.8 % (42-76); RED BLOOD COUNT 3.98 mill/uL (4.70-6.10); RED CELL DISTRI WIDTH 15.9 % (11.5-15.5)
[2023-08-04 15:36] LABS: ALBUMIN 3.9 g/dL (3.2-5.0); ALKALINE PHOSPHATASE 134 u/l (38-126); ANION GAP 10 (6-22 (CALC)); BILIRUBIN, TOTAL 1.5 mg/dL (0.2-1.3); BUN 6 mg/dL (9-20); BUN/CREATININE RATIO 9 (12-20 (CALC)); CARBON DIOXIDE 26 mmol/l (22-30); CHLORIDE 107 mmol/l (95-108); CREATININE 0.7 mg/dL (0.7-1.3); GFR FOR AFR.AMER. > 60 ML/MIN (>=60 (CALC)); GFR OTHER RACES > 60 ML/MIN (>=60 (CALC)); POTASSIUM 4.1 mmol/l (3.5-5.1); SGOT/AST 64 u/l (17-59); SODIUM 139 mmol/l (137-146); TOTAL PROTEIN 7.4 g/dL (6.3-8.2)
[2023-08-04] MEDS ORDERED: FIORICET PO (16:06)
[2023-08-04] MEDS ORDERED: PREDNISONE20 MG PO (16:06)
== END 2023-08-04 16:52 | disposition home or self-care (01) | DRG 103 ==
LOC: ED 13:02
PROVIDERS: Nurse Practitioner
DX: R51.9 Headache, unspecified (principal); K86.1 Other chronic pancreatitis; I10 Essential (primary) hypertension; F17.210 Nicotine dependence, cigarettes, uncomplicated

== ENCOUNTER 2023-11-21 10:37 | Inpatient (IN) | payer OTHER ==
[~2023-11-21] VITALS: Ht 188 cm; Wt 115.0 kg
[2023-11-21] VITALS (15 sets, daily range): BP systolic 132–204; BP diastolic 60–107
[~2023-11-21 10:37] MED LIST changes: +FIORICET PO; +PREDNISONE20 MG PO
[2023-11-21 11:16] LABS: BASO% 0.5 % (0-3); EOS% 0.8 % (0-8); HEMATOCRIT 41.4 % (39.0-50.0); HEMOGLOBIN 13.4 g/dl (14.0-18.0); LYMPH% 30.4 % (15-41); MEAN CORPUSCULAR HGB 24.3 pG CALC (26.0-32.0); MEAN CORPUSCULAR HGB CONC 32.4 g/dL CAL (32.0-36.0); MONO% 10.2 % (2-13); NEUT# 3.48 thou/uL (1.82-7.42); NEUT% 58.1 % (42-76); RED BLOOD COUNT 5.51 mill/uL (4.70-6.10); RED CELL DISTRI WIDTH 15.8 % (11.5-15.5)
[2023-11-21 11:23] LABS: ALBUMIN 4.9 g/dL (3.2-5.0); ALKALINE PHOSPHATASE 159 u/l (38-126); ANION GAP 14 (6-22 (CALC)); BILIRUBIN, TOTAL 2.3 mg/dL (0.2-1.3); BUN 9 mg/dL (9-20); BUN/CREATININE RATIO 12 (12-20 (CALC)); CARBON DIOXIDE 26 mmol/l (22-30); CHLORIDE 102 mmol/l (95-108); CREATININE 0.7 mg/dL (0.7-1.3); GFR FOR AFR.AMER. > 60 ML/MIN (>=60 (CALC)); GFR OTHER RACES > 60 ML/MIN (>=60 (CALC)); MEAN CELL VOLUME 75.1 fL CALC (80.0-100.0); POTASSIUM 4.1 mmol/l (3.5-5.1); SGOT/AST 96 u/l (17-59); SODIUM 138 mmol/l (137-146); TOTAL PROTEIN 8.1 g/dL (6.3-8.2)
[2023-11-21 11:41] LABS: LIPASE 4494 u/l (23-300)
[2023-11-21 12:04] LABS: URINE BILIRUBIN - DIPSTICK Negative (NEGATIVE); URINE BLOOD DIPSTICK Trace-lysed (NEGATIVE); URINE GLUCOSE - DIPSTICK Negative (NEGATIVE); URINE KETONE Negative (NEGATIVE); URINE LEUK ESTERASE Negative (NEGATIVE); URINE NITRITE - DIPSTICK Negative (Negative); URINE PROTEIN - DIPSTICK Trace mg/dL (NEG-TRACE)
[2023-11-21 12:07] LABS: URINE COLOR Yellow
[2023-11-21] MEDS ORDERED: CREON12000 UNT PO (14:42)
[2023-11-21] MEDS ORDERED: CARAFATE1 GM PO (14:44)
[2023-11-22] VITALS (7 sets, daily range): BP systolic 132–187; BP diastolic 65–100
[2023-11-22 06:57] LABS: BASO% 0.3 % (0-3); EOS% 0.8 % (0-8); HEMATOCRIT 37.5 % (39.0-50.0); HEMOGLOBIN 12.3 g/dl (14.0-18.0); IMMATURE GRANULOCYTES 0.1 % (0.0-5.0); LYMPH% 17.3 % (15-41); MEAN CELL VOLUME 75.8 fL CALC (80.0-100.0); MEAN CORPUSCULAR HGB 24.8 pG CALC (26.0-32.0); MEAN CORPUSCULAR HGB CONC 32.8 g/dL CAL (32.0-36.0); MONO% 9.8 % (2-13); NEUT# 5.1 thou/uL (1.82-7.42); NEUT% 71.7 % (42-76); RED BLOOD COUNT 4.95 mill/uL (4.70-6.10); RED CELL DISTRI WIDTH 15.8 % (11.5-15.5)
[2023-11-22 07:18] LABS: ALBUMIN 4.1 g/dL (3.2-5.0); ALKALINE PHOSPHATASE 123 u/l (38-126); ANION GAP 11 (6-22 (CALC)); BILIRUBIN, TOTAL 2.6 mg/dL (0.2-1.3); BUN 6 mg/dL (9-20); BUN/CREATININE RATIO 9 (12-20 (CALC)); CARBON DIOXIDE 25 mmol/l (22-30); CHLORIDE 104 mmol/l (95-108); CREATININE 0.7 mg/dL (0.7-1.3); GFR FOR AFR.AMER. > 60 ML/MIN (>=60 (CALC)); GFR OTHER RACES > 60 ML/MIN (>=60 (CALC)); MAGNESIUM 1.9 mg/dL (1.6-2.3); POTASSIUM 3.6 mmol/l (3.5-5.1); SGOT/AST 55 u/l (17-59); SODIUM 136 mmol/l (137-146)
[2023-11-23] VITALS: BP 135/67
[2023-11-23 04:00] VITALS: BP 136/71
[2023-11-23 06:50] VITALS: BP 155/91
[2023-11-23 07:38] LABS: BASO% 0.1 % (0-3); HEMATOCRIT 32.3 % (39.0-50.0); HEMOGLOBIN 10.8 g/dl (14.0-18.0); IMMATURE GRANULOCYTES 0.3 % (0.0-5.0); LYMPH% 7.8 % (15-41); MEAN CORPUSCULAR HGB 25.4 pG CALC (26.0-32.0); MEAN CORPUSCULAR HGB CONC 33.4 g/dL CAL (32.0-36.0); MONO% 6.7 % (2-13); NEUT# 6.22 thou/uL (1.82-7.42); NEUT% 85.1 % (42-76); RED BLOOD COUNT 4.25 mill/uL (4.70-6.10); RED CELL DISTRI WIDTH 15.7 % (11.5-15.5)
[2023-11-23 08:28] LABS: ALBUMIN 3.5 g/dL (3.2-5.0); ALKALINE PHOSPHATASE 129 u/l (38-126); ANION GAP 11 (6-22 (CALC)); BILIRUBIN, TOTAL 2.9 mg/dL (0.2-1.3); BUN 4 mg/dL (9-20); BUN/CREATININE RATIO 6 (12-20 (CALC)); CARBON DIOXIDE 23 mmol/l (22-30); CHLORIDE 104 mmol/l (95-108); CREATININE 0.7 mg/dL (0.7-1.3); GFR FOR AFR.AMER. > 60 ML/MIN (>=60 (CALC)); GFR OTHER RACES > 60 ML/MIN (>=60 (CALC)); LIPASE 732 u/l (23-300); MAGNESIUM 1.6 mg/dL (1.6-2.3); POTASSIUM 3.4 mmol/l (3.5-5.1); SGOT/AST 44 u/l (17-59); SODIUM 135 mmol/l (137-146)
[2023-11-23 10:13] VITALS: BP 169/91
[2023-11-23] MEDS ORDERED: PROTONIX40 MG PO (12:26)
[2023-11-23 13:46] VITALS: BP 154/89
== END 2023-11-23 14:13 | disposition home or self-care (01) | DRG 440 ==
LOC: ED 10:37 → ED-I 13:41 → ED 13:51 → MS2 14:00
PROVIDERS: Family Medicine; Nurse Practitioner Family; ADMIT Student in an Organized Health Care Education/Training Program; ATTEND Student in an Organized Health Care Education/Training Program
DX: K85.00 Idiopathic acute pancreatitis without necrosis or infection (principal); K25.9 Gastric ulcer, unspecified as acute or chronic, without hemorrhage or perforation; K86.1 Other chronic pancreatitis; E80.6 Other disorders of bilirubin metabolism; I10 Essential (primary) hypertension; F17.200 Nicotine dependence, unspecified, uncomplicated
CPT/HCPCS: J1650; Q9967; S0164

== ENCOUNTER 2023-12-02 14:50 | Emergency (ER) | payer OTHER ==
[2023-12-02] VITALS (9 sets, daily range): BP systolic 152–167; BP diastolic 72–106
[~2023-12-02] VITALS: Ht 188 cm; Wt 113.0 kg
[2023-12-02 15:46] LABS: BASO% 0.7 % (0-3); EOS% 1.2 % (0-8); HEMOGLOBIN 12.5 g/dl (14.0-18.0); IMMATURE GRANULOCYTES 0.4 % (0.0-5.0); LYMPH% 32.4 % (15-41); MEAN CELL VOLUME 76.1 fL CALC (80.0-100.0); MEAN CORPUSCULAR HGB 24.7 pG CALC (26.0-32.0); MEAN CORPUSCULAR HGB CONC 32.4 g/dL CAL (32.0-36.0); NEUT# 4.77 thou/uL (1.82-7.42); NEUT% 58.3 % (42-76); RED BLOOD COUNT 5.07 mill/uL (4.70-6.10); RED CELL DISTRI WIDTH 15.9 % (11.5-15.5)
[2023-12-02 15:48] LABS: HEMATOCRIT 38.6 % (39.0-50.0)
[2023-12-02 16:03] LABS: ALKALINE PHOSPHATASE 189 u/l (38-126); AMYLASE 61 u/l (30-110); ANION GAP 15 (6-22 (CALC)); BUN 8 mg/dL (9-20); BUN/CREATININE RATIO 11 (12-20 (CALC)); CARBON DIOXIDE 25 mmol/l (22-30); CHLORIDE 103 mmol/l (95-108); CREATININE 0.7 mg/dL (0.7-1.3); GFR FOR AFR.AMER. > 60 ML/MIN (>=60 (CALC)); GFR OTHER RACES > 60 ML/MIN (>=60 (CALC)); LIPASE 118 u/l (23-300); POTASSIUM 3.8 mmol/l (3.5-5.1); SODIUM 140 mmol/l (137-146)
[2023-12-02 16:04] LABS: ALBUMIN 4.9 g/dL (3.2-5.0); BILIRUBIN, TOTAL 0.8 mg/dL (0.2-1.3); SGOT/AST 83 u/l (17-59); TOTAL PROTEIN 8.2 g/dL (6.3-8.2)
[2023-12-02 19:06] LABS: URINE BILIRUBIN - DIPSTICK Negative (NEGATIVE); URINE BLOOD DIPSTICK Negative (NEGATIVE); URINE GLUCOSE - DIPSTICK Negative (NEGATIVE); URINE KETONE 15 mg/dL (NEGATIVE); URINE LEUK ESTERASE Negative (NEGATIVE); URINE NITRITE - DIPSTICK Negative (Negative); URINE PROTEIN - DIPSTICK 30 mg/dL (NEG-TRACE); URINE UROBILINOGEN - DIPSTICK 0.2 E.U./dL (0.2)
[2023-12-02 19:07] LABS: URINE COLOR Yellow; URINE RBC 0-2 RBC/hpf (0-5); URINE WBC 0-2 WBC/hpf (0-5)
== END 2023-12-02 20:42 | disposition short-term general hospital (02) | DRG 440 ==
LOC: ED 14:50
PROVIDERS: Nurse Practitioner
DX: K86.89 Other specified diseases of pancreas (principal); K86.1 Other chronic pancreatitis; I10 Essential (primary) hypertension; F17.200 Nicotine dependence, unspecified, uncomplicated
CPT/HCPCS: Q9967

== ENCOUNTER 2024-06-11 02:59 | Emergency (ER) | payer OTHER ==
[2024-06-11] VITALS (10 sets, daily range): BP systolic 131–153; BP diastolic 69–91
[~2024-06-11] VITALS: Ht 188 cm; Wt 117.0 kg
[~2024-06-11 02:59] MED LIST changes: +PHENERGAN25 MG RE
[2024-06-11] MEDS ORDERED: KETOROLAC TROMETHAMINE 15 MG/ML SDV IV STA (03:31)
[2024-06-11] MEDS ORDERED: MORPHINE SULFATE 4 MG/ML VIAL IV STA (03:31)
[2024-06-11] MEDS ORDERED: SODIUM CHLORIDE 0.9% 1,000 ML IV ONE (03:35)
[2024-06-11 04:07] LABS: BASO% 0.4 % (0-3); EOS% 1.4 % (0-8); HEMATOCRIT 41.1 % (39.0-50.0); HEMOGLOBIN 13.4 g/dl (14.0-18.0); IMMATURE GRANULOCYTES 0.1 % (0.0-5.0); LYMPH% 24.5 % (15-41); MEAN CELL VOLUME 77.3 fL CALC (80.0-100.0); MEAN CORPUSCULAR HGB 25.2 pG CALC (26.0-32.0); MEAN CORPUSCULAR HGB CONC 32.6 g/dL CAL (32.0-36.0); NEUT# 4.59 thou/uL (1.82-7.42); NEUT% 64.6 % (42-76); RED BLOOD COUNT 5.32 mill/uL (4.70-6.10); RED CELL DISTRI WIDTH 14.6 % (11.5-15.5)
[2024-06-11 04:14] LABS: ALBUMIN 4.2 g/dL (3.2-5.0); BILIRUBIN, TOTAL 1.5 mg/dL (0.2-1.3); CREATININE 0.6 mg/dL (0.7-1.3); POTASSIUM 3.7 mmol/l (3.5-5.1); TOTAL PROTEIN 7.2 g/dL (6.3-8.2)
[2024-06-11] MEDS ORDERED: HYDROmorphone HCL 2 MG/AMP IV ONE (04:50)
[2024-06-11] MEDS ORDERED: METOCLOPRAMIDE HCL 10 MG/2 ML SDV IV ONE (04:50)
[2024-06-11] MEDS ORDERED: DiphenhydrAMINE HCL 50 MG/ML SDV IV ONE (04:50)
[2024-06-11 05:01] LABS: URINE BLOOD DIPSTICK Trace-intact (NEGATIVE); URINE GLUCOSE - DIPSTICK 100 mg/dL (NEGATIVE); URINE KETONE 15 mg/dL (NEGATIVE); URINE LEUK ESTERASE Negative (NEGATIVE); URINE NITRITE - DIPSTICK Negative (Negative); URINE PH 5.5 (4.5-8.0); URINE PROTEIN - DIPSTICK 30 mg/dL (NEG-TRACE); URINE SPECIFIC GRAVITY >=1.030
[2024-06-11 05:02] LABS: URINE COLOR Yellow
[2024-06-11 05:09] LABS: URINE AMORPH SEDIMENT MANY hpf (NONE-FER); URINE BACTERIA MODERATE hpf; URINE RBC 0-2 RBC/hpf (0-5); URINE SQUAMOUS EPITHELIAL CELL FEW EPI/hpf (0-FEW); URINE WBC 0-2 WBC/hpf (0-5)
[2024-06-11] MEDS ORDERED: AMOX/K CLAV875 M1 PO (06:51)
[2024-06-11] MEDS ORDERED: ZOFRAN4 MG/TAB PO (06:51)
[2024-06-11] MEDS ORDERED: HYDROCO/APAP1 T10 PO (06:51)
== END 2024-06-11 07:23 | disposition home or self-care (01) | DRG 440 ==
LOC: ED 02:59
PROVIDERS: Emergency Medicine
DX: K85.90 Acute pancreatitis without necrosis or infection, unspecified (principal); R74.01 Elevation of levels of liver transaminase levels; K86.1 Other chronic pancreatitis; I10 Essential (primary) hypertension; F17.210 Nicotine dependence, cigarettes, uncomplicated; Z86.718 Personal history of other venous thrombosis and embolism
CPT/HCPCS: Q9967

== ENCOUNTER 2024-08-21 06:06 | Emergency (ER) | payer OTHER ==
[2024-08-21] VITALS (10 sets, daily range): BP systolic 154–185; BP diastolic 89–103
[~2024-08-21] VITALS: Ht 188 cm; Wt 113.0 kg
[~2024-08-21 06:06] MED LIST changes: +AMOX/K CLAV875 M1 PO
[2024-08-21] MEDS ORDERED: DICYCLOMINE HCL 20 MG/2 ML VIAL IM ONE (06:20)
[2024-08-21] MEDS ORDERED: FAMOTIDINE 10MG/ML 2ML SDV IV ONE (06:20)
[2024-08-21] MEDS ORDERED: HYDROmorphone HCL 2 MG/AMP IV ONE (06:20)
[2024-08-21] MEDS ORDERED: ONDANSETRON HCl 4 MG/2 ML SDV IV ONE (06:25)
[2024-08-21 06:37] LABS: BASO% 0.4 % (0-3); EOS% 0.7 % (0-8); HEMATOCRIT 45.7 % (39.0-50.0); HEMOGLOBIN 14.8 g/dl (14.0-18.0); IMMATURE GRANULOCYTES 0.2 % (0.0-5.0); MEAN CELL VOLUME 79.9 fL CALC (80.0-100.0); MEAN CORPUSCULAR HGB 25.9 pG CALC (26.0-32.0); MEAN CORPUSCULAR HGB CONC 32.4 g/dL CAL (32.0-36.0); MONO% 8.5 % (2-13); NEUT# 5.85 thou/uL (1.82-7.42); NEUT% 69.2 % (42-76); RED BLOOD COUNT 5.72 mill/uL (4.70-6.10); RED CELL DISTRI WIDTH 15.5 % (11.5-15.5)
[2024-08-21 06:48] LABS: ALBUMIN 4.6 g/dL (3.2-5.0); CREATININE 0.6 mg/dL (0.7-1.3); POTASSIUM 4.1 mmol/l (3.5-5.1); TOTAL PROTEIN 7.7 g/dL (6.3-8.2)
[2024-08-21 07:30] LABS: BILIRUBIN, TOTAL 2.7 mg/dL (0.2-1.3)
[2024-08-21] MEDS ORDERED: SODIUM CHLORIDE 0.9% 1,000 ML IV ONE ×2 (07:35)
[2024-08-21] MEDS ORDERED: MORPHINE SULFATE 4 MG/ML VIAL IV ONE (07:35)
[2024-08-21] MEDS ORDERED: KETOROLAC TROMETHAMINE 30 MG/ML SDV IV ONE (09:00)
== END 2024-08-21 10:10 | disposition home or self-care (01) | DRG 440 ==
LOC: ED 06:06
PROVIDERS: Emergency Medicine
DX: K85.20 Alcohol induced acute pancreatitis without necrosis or infection (principal); K86.0 Alcohol-induced chronic pancreatitis; F10.10 Alcohol abuse, uncomplicated; I10 Essential (primary) hypertension; F17.200 Nicotine dependence, unspecified, uncomplicated; Z86.718 Personal history of other venous thrombosis and embolism

== ENCOUNTER 2024-11-20 16:10 | Emergency (ER) | payer OTHER ==
[2024-11-20] VITALS (16 sets, daily range): BP systolic 156–183; BP diastolic 81–128
[~2024-11-20] VITALS: Ht 188 cm; Wt 115.6 kg
[2024-11-20] MEDS ORDERED: SODIUM CHLORIDE 0.9% 1,000 ML IV ONE (16:20)
[2024-11-20] MEDS ORDERED: ONDANSETRON HCl 4 MG/2 ML SDV IV ONE (16:20)
[2024-11-20] MEDS ORDERED: HYDROmorphone HCL 2 MG/AMP IV ONE (16:20)
[2024-11-20 16:44] LABS: BASO% 0.7 % (0-3); EOS% 0.7 % (0-8); HEMATOCRIT 40.3 % (39.0-50.0); HEMOGLOBIN 13.2 g/dl (14.0-18.0); IMMATURE GRANULOCYTES 0.1 % (0.0-5.0); LYMPH% 29.2 % (15-41); MEAN CELL VOLUME 77.6 fL CALC (80.0-100.0); MEAN CORPUSCULAR HGB 25.4 pG CALC (26.0-32.0); MEAN CORPUSCULAR HGB CONC 32.8 g/dL CAL (32.0-36.0); MONO% 7.6 % (2-13); NEUT# 4.54 thou/uL (1.82-7.42); NEUT% 61.7 % (42-76); RED BLOOD COUNT 5.19 mill/uL (4.70-6.10); RED CELL DISTRI WIDTH 14.2 % (11.5-15.5)
[2024-11-20 16:54] LABS: ALBUMIN 4.5 g/dL (3.2-5.0); CREATININE 0.8 mg/dL (0.7-1.3); POTASSIUM 4.1 mmol/l (3.5-5.1); TOTAL PROTEIN 7.2 g/dL (6.3-8.2)
[2024-11-20 16:56] LABS: BILIRUBIN, TOTAL 1.3 mg/dL (0.2-1.3)
[2024-11-20] MEDS ORDERED: Pantoprazole Sodium 40 MG VIAL (Protonix) IV STA (18:38)
[2024-11-20] MEDS ORDERED: METOCLOPRAMIDE HCL 10 MG/2 ML SDV IV ONE (18:40)
[2024-11-20] MEDS ORDERED: REGLAN10 MG PO (18:42)
[2024-11-20 19:01] LABS: URINE BILIRUBIN - DIPSTICK Negative (NEGATIVE); URINE BLOOD DIPSTICK Negative (NEGATIVE); URINE COLOR Yellow; URINE GLUCOSE - DIPSTICK Negative (NEGATIVE); URINE KETONE Negative (NEGATIVE); URINE LEUK ESTERASE Negative (NEGATIVE); URINE NITRITE - DIPSTICK Negative (Negative); URINE PROTEIN - DIPSTICK Negative (NEG-TRACE); URINE SPECIFIC GRAVITY 1.015
== END 2024-11-20 19:25 | disposition home or self-care (01) | DRG 440 ==
LOC: ED 16:10
PROVIDERS: Nurse Practitioner
DX: K85.90 Acute pancreatitis without necrosis or infection, unspecified (principal); K86.1 Other chronic pancreatitis; I10 Essential (primary) hypertension; F17.200 Nicotine dependence, unspecified, uncomplicated
CPT/HCPCS: J1171; J2405; J2470; J2765

== ENCOUNTER 2025-01-24 10:20 | Emergency (ER) | payer OTHER ==
[2025-01-24] VITALS (11 sets, daily range): BP systolic 134–172; BP diastolic 75–104
[~2025-01-24] VITALS: Ht 188 cm; Wt 116.0 kg
[2025-01-24] MEDS ORDERED: ONDANSETRON HCl 4 MG/2 ML SDV IV ONE (10:25)
[2025-01-24] MEDS ORDERED: MORPHINE SULFATE 4 MG/ML VIAL IV ONE ×2 (10:25→11:40)
[2025-01-24] MEDS ORDERED: SODIUM CHLORIDE 0.9% 1,000 ML IV ONE (10:30)
[2025-01-24 10:58] LABS: URINE BLOOD DIPSTICK Negative (NEGATIVE); URINE GLUCOSE - DIPSTICK 250 mg/dL (NEGATIVE); URINE KETONE Trace mg/dL (NEGATIVE); URINE LEUK ESTERASE Negative (NEGATIVE); URINE NITRITE - DIPSTICK Negative (Negative); URINE PROTEIN - DIPSTICK 100 mg/dL (NEG-TRACE); URINE SPECIFIC GRAVITY 1.025
[2025-01-24 10:58] LABS: BASO% 0.8 % (0-3); EOS% 1.5 % (0-8); HEMATOCRIT 42.4 % (39.0-50.0); HEMOGLOBIN 13.9 g/dl (14.0-18.0); IMMATURE GRANULOCYTES 0.2 % (0.0-5.0); LYMPH% 32.4 % (15-41); MEAN CORPUSCULAR HGB 25.2 pG CALC (26.0-32.0); MEAN CORPUSCULAR HGB CONC 32.8 g/dL CAL (32.0-36.0); MONO% 8.8 % (2-13); NEUT# 3.32 thou/uL (1.82-7.42); NEUT% 56.3 % (42-76); RED BLOOD COUNT 5.51 mill/uL (4.70-6.10); RED CELL DISTRI WIDTH 14.4 % (11.5-15.5)
[2025-01-24 11:01] LABS: URINE COLOR Dark yellow
[2025-01-24 11:02] LABS: URINE EPITHELIAL CELLS FEW EPI/hpf (0-FEW); URINE MUCUS FEW hpf (NONE-FEW)
[2025-01-24 11:15] LABS: ALBUMIN 4.6 g/dL (3.2-5.0); BILIRUBIN, TOTAL 1.3 mg/dL (0.2-1.3); CREATININE 0.7 mg/dL (0.7-1.3); POTASSIUM 4.4 mmol/l (3.5-5.1); TOTAL PROTEIN 7.8 g/dL (6.3-8.2)
[2025-01-24] MEDS ORDERED: HYDROmorphone HCL 2 MG/AMP IV ONE (12:30)
== END 2025-01-24 13:18 | disposition home or self-care (01) | DRG 392 ==
LOC: ED 10:20
PROVIDERS: Family Medicine
DX: R10.13 Epigastric pain (principal); K86.0 Alcohol-induced chronic pancreatitis; I10 Essential (primary) hypertension; F17.210 Nicotine dependence, cigarettes, uncomplicated; Z86.718 Personal history of other venous thrombosis and embolism
CPT/HCPCS: J1171; J2405